=== PATIENT | female | born 1970 | race Caucasian/White ===

== ENCOUNTER → 2016-06-25 | Outpatient (CLI) | payer MEDICARE, MEDICAID ==
[2016-06-25 09:07] LABS: HEMOGLOBIN 11.4 g/dL (12.0-15.5); HGB HCT DIFFERENCE 0.2; MEAN CORPUSCULAR HEMOGLOBIN 28.3 pg (27.0-33.4); MEAN CORPUSCULAR HGB CONC 33.5 g/dL (32.0-36.0); MEAN CORPUSCULAR VOLUME 85 fl (80-97); RED BLOOD COUNT 4.02 10^6/uL (3.72-5.28); RED CELL DISTRIBUTION WIDTH 13.5 % (11.5-14.0); WHITE BLOOD COUNT 6.7 10^3/uL (4.0-10.5)
[2016-06-25 09:40] LABS: ANION GAP 11 (5-19); BLOOD UREA NITROGEN 11 mg/dL (7-20); CALCIUM 9.4 mg/dL (8.4-10.2); CARBON DIOXIDE 24 mmol/L (22-30); CHLORIDE 109 mmol/L (98-107); CREATININE RESULT 1.55 mg/dL (0.52-1.25); GLUCOSE 128 mg/dL (75-110); POTASSIUM 3.9 mmol/L (3.6-5.0); SODIUM 143.6 mmol/L (137-145)
== END ==
LOC: OD 08:34
PROVIDERS: ATTEND Internal Medicine Nephrology
DX: I12.9 Hypertensive chronic kidney disease with stage 1 through stage 4 chronic kidney disease, or unspecified chronic kidney disease (principal); N18.3 Chronic kidney disease, stage 3 (moderate); E11.9 Type 2 diabetes mellitus without complications
CPT/HCPCS: 36415; 80048; 85027

== ENCOUNTER → 2016-12-18 | Outpatient (CLI) | payer MEDICARE, MEDICAID ==
[2016-12-18 10:26] LABS: HEMATOCRIT 32.4 % (36.0-47.0); HGB HCT DIFFERENCE 0.6; MEAN CORPUSCULAR HEMOGLOBIN 29.2 pg (27.0-33.4); MEAN CORPUSCULAR HGB CONC 33.9 g/dL (32.0-36.0); MEAN CORPUSCULAR VOLUME 86 fl (80-97); RED BLOOD COUNT 3.77 10^6/uL (3.72-5.28); RED CELL DISTRIBUTION WIDTH 13.6 % (11.5-14.0); WHITE BLOOD COUNT 4.9 10^3/uL (4.0-10.5)
[2016-12-18 10:35] LABS: APPEARANCE,URINE CLEAR; BILIRUBIN,URINE NEGATIVE (NEGATIVE); GLUCOSE, URINE NEGATIVE (NEGATIVE); KETONES,URINE NEGATIVE (NEGATIVE); LEUKOCYTE ESTERASE,URINE NEGATIVE (NEGATIVE); NITRITE,URINE NEGATIVE (NEGATIVE); PROTEIN,URINE NEGATIVE (NEGATIVE); URINE SPECIFIC GRAVITY 1.004; UROBILINOGEN,URINE NEGATIVE mg/dL (<2.0)
[2016-12-18 10:51] LABS: ANION GAP 11 (5-19); BLOOD UREA NITROGEN 16 mg/dL (7-20); CALCIUM 9.6 mg/dL (8.4-10.2); CARBON DIOXIDE 24 mmol/L (22-30); CHLORIDE 109 mmol/L (98-107); CREATININE RESULT 1.52 mg/dL (0.52-1.25); GLUCOSE 139 mg/dL (75-110); SODIUM 144.2 mmol/L (137-145)
[2016-12-19 11:40] LABS: CREATININE URINE 48.8 mg/dL (Not Estab.); MICROALBUMIN URINE <3.0 ug/mL (Not Estab.)
== END ==
LOC: OD 08:50
PROVIDERS: ATTEND Internal Medicine Nephrology
DX: E11.22 Type 2 diabetes mellitus with diabetic chronic kidney disease (principal); I12.9 Hypertensive chronic kidney disease with stage 1 through stage 4 chronic kidney disease, or unspecified chronic kidney disease; N18.3 Chronic kidney disease, stage 3 (moderate)
CPT/HCPCS: 36415; 80048; 81001; 82043; 82570; 85027

== ENCOUNTER → 2017-01-17 | Outpatient (CLI) | payer MEDICARE, MEDICAID ==
--- NOTE | 2017-01-18 17:23 | WOMENS IMAGING REPORT ---
EXAM DESCRIPTION: 3D SCREENING MAMMO BILAT COMPLETED DATE/TIME: 01/17/2017 9:12 am REASON FOR STUDY: SCREENING MAMMO Z12.31 ENCNTR SCREEN MAMMOGRAM FOR MALIGNANT NEOPLASM OF TOBIAS COMPARISON: 2012 TECHNIQUE: Standard craniocaudal and mediolateral oblique views of each breast recorded using digita l acquisition and breast tomosynthesis. LIMITATIONS: None. FINDINGS: No masses, calcifications or architectural distortion. No areas of suspicion. Read with the assistance of CAD. .[facility] - R2 Cenova Version 1.3 .[facility] - R2 Cenova Version 1.3 .[facility] - R2 Cenova Version 2.4 .[facility] [place] - R2 Cenova Version 2.4 .[facility] - R2 [employer] Version 9.2 IMPRESSION: NORMAL MAMMOGRAM. BIRADS 1. BREAST DENSITY: a. The breasts are almost entirely fatty. BIRAD: 1 NEGATIVE RECOMMENDATION: ROUTINE SCREENING Please continue yearly bilateral screening tomosynthesis in January 2018. COMMENT: The patient has been notified of the results by letter per MQSA requirements. Additional no tification policies are in place for contacting patient with suspicious or incomplete findings. Quality ID #[id number]: The [employer] recommends an annual screening mammogram for women aged 40 years or over. This facility utilizes a reminder system to ensure that all patients receive reminder letters, and/or direct phone calls for appointments. This includes reminders for routine scr eening mammograms, diagnostic mammograms, or other Breast Imaging Interventions when appropriate. Th is patient will be placed in the appropriate reminder system. The [employer] (ACR) has developed recommendations for screening MRI of the breast s in certain patient populations, to be used in conjunction with mammography. Breast MRI surveillanc e may be appropriate for women with more than 20% lifetime risk of developing breast cancer as deter mined by genetic testing, significant family history of the disease, or history of mantle radiation f or Hodgkins Disease. ACR Practice Guidelines 2008. DBT Technology DBT is a type of tomographic mammography. With conventional mammography, overlapping breast tissue ma y make lesions difficult to detect, even with good compression. DBT uses an x-ray tube that rotates a round the breast, taking images at different angles. These images are then combined to create thin sl ices of the breast that the radiologist can view as a 3D reconstruction. The [employer] unit can perform full-field digital mammograms (2D imaging); or DBT (3D imaging); or both, in a combination mode that quickly performs both the mammogram and the tomosynthesis scan while the breast is still compressed. PQRS 6045F: Fluoroscopic imaging is not utilized for breast tomosynthesis. TECHNICAL DOCUMENTATION: FINDING NUMBER: (1) ASSESSMENT: (1) JOB ID: [id number] [employer]- All Rights Reserved
== END ==
LOC: WI 08:31
PROVIDERS: ATTEND Physician Assistant
DX: Z12.31 Encounter for screening mammogram for malignant neoplasm of breast (principal)
CPT/HCPCS: 77063; G0202; 77067

== ENCOUNTER → 2017-06-13 | Outpatient (CLI) | payer MEDICARE, MEDICAID ==
[2017-06-13 12:09] LABS: HEMATOCRIT 35.3 % (36.0-47.0); HEMOGLOBIN 11.8 g/dL (12.0-15.5); MEAN CORPUSCULAR HEMOGLOBIN 28.7 pg (27.0-33.4); MEAN CORPUSCULAR HGB CONC 33.5 g/dL (32.0-36.0); MEAN CORPUSCULAR VOLUME 86 fl (80-97); PLATELET COUNT 189 10^3/uL (150-450); RED BLOOD COUNT 4.12 10^6/uL (3.72-5.28); RED CELL DISTRIBUTION WIDTH 13.5 % (11.5-14.0)
[2017-06-13 12:42] LABS: ANION GAP 8 (5-19); BLOOD UREA NITROGEN 16 mg/dL (7-20); CALCIUM 9.3 mg/dL (8.4-10.2); CARBON DIOXIDE 24 mmol/L (22-30); CHLORIDE 111 mmol/L (98-107); GLUCOSE 132 mg/dL (75-110); POTASSIUM 4.3 mmol/L (3.6-5.0); SODIUM 142.8 mmol/L (137-145)
== END ==
LOC: OD 10:29
PROVIDERS: ATTEND Internal Medicine Nephrology
DX: I12.9 Hypertensive chronic kidney disease with stage 1 through stage 4 chronic kidney disease, or unspecified chronic kidney disease (principal); N18.3 Chronic kidney disease, stage 3 (moderate); E11.9 Type 2 diabetes mellitus without complications
CPT/HCPCS: 36415; 80048; 85027

== ENCOUNTER → 2018-02-06 | Outpatient (CLI) | payer MEDICARE, MEDICAID ==
--- NOTE | 2018-02-06 14:42 | WOMENS IMAGING REPORT ---
EXAM DESCRIPTION: 3D SCREENING MAMMO BILAT COMPLETED DATE/TIME: 02/06/2018 11:25 am REASON FOR STUDY: BILATERAL SCREENING MAMMO 3D/Z12.31 Z12.31 ENCNTR SCREEN MAMMOGRAM FOR MALIGNANT NEOPLASM OF TOBIAS COMPARISON: Multiple since 2012 TECHNIQUE: Standard craniocaudal and mediolateral oblique views of each breast recorded using digita l acquisition and breast tomosynthesis. LIMITATIONS: None. FINDINGS: No masses, calcifications or architectural distortion. No areas of suspicion. Read with the assistance of CAD. .[facility] - R2 Cenova Version 1.3 .[facility] - R2 Cenova Version 1.3 .[facility] - R2 Cenova Version 2.4 .[facility] - R2 Cenova Version 2.4 .[facility] - R2 [employer] Version 9.2 IMPRESSION: NORMAL MAMMOGRAM. BIRADS 1. BREAST DENSITY: a. The breasts are almost entirely fatty. BIRAD: 1 NEGATIVE RECOMMENDATION: ROUTINE SCREENING Please continue yearly bilateral screening mammography/tomosynthesis in January 2019 COMMENT: The patient has been notified of the results by letter per MQSA requirements. Additional no tification policies are in place for contacting patient with suspicious or incomplete findings. Quality ID #225: The [employer] recommends an annual screening mammogram for women aged 40 years or over. This facility utilizes a reminder system to ensure that all patients receive reminder letters, and/or direct phone calls for appointments. This includes reminders for routine scr eening mammograms, diagnostic mammograms, or other Breast Imaging Interventions when appropriate. Th is patient will be placed in the appropriate reminder system. The [employer] (ACR) has developed recommendations for screening MRI of the breast s in certain patient populations, to be used in conjunction with mammography. Breast MRI surveillanc e may be appropriate for women with more than 20% lifetime risk of developing breast cancer as deter mined by genetic testing, significant family history of the disease, or history of mantle radiation f or Hodgkins Disease. ACR Practice Guidelines 2008. DBT Technology DBT is a type of tomographic mammography. With conventional mammography, overlapping breast tissue ma y make lesions difficult to detect, even with good compression. DBT uses an x-ray tube that rotates a round the breast, taking images at different angles. These images are then combined to create thin sl ices of the breast that the radiologist can view as a 3D reconstruction. The [employer] unit can perform full-field digital mammograms (2D imaging); or DBT (3D imaging); or both, in a combination mode that quickly performs both the mammogram and the tomosynthesis scan while the breast is still compressed. PQRS 6045F: Fluoroscopic imaging is not utilized for breast tomosynthesis. TECHNICAL DOCUMENTATION: FINDING NUMBER: (1) ASSESSMENT: (1) JOB ID: [id number] [employer]- All Rights Reserved Reading location - IP/workstation name: [facility]
== END ==
LOC: WI 11:00
PROVIDERS: ATTEND Physician Assistant
DX: Z12.31 Encounter for screening mammogram for malignant neoplasm of breast (principal)
CPT/HCPCS: 77063; 77067

== ENCOUNTER 2018-05-21 21:07 | Emergency (ER) | payer MEDICARE, MEDICAID ==
[2018-05-21 22:18] VITALS: BP 159/96
== END 2018-05-22 02:00 | disposition left against medical advice (07) ==
LOC: ER 21:07
DX: Z53.21 Procedure and treatment not carried out due to patient leaving prior to being seen by health care provider (principal); R11.10 Vomiting, unspecified

== ENCOUNTER → 2018-05-29 | Outpatient (CLI) | payer MEDICARE, MEDICAID ==
--- NOTE | 2018-05-29 11:03 | RADIOLOGY REPORT (SQ) ---
EXAM DESCRIPTION: CT ABD/PELVIS NO ORAL OR IV COMPLETED DATE/TIME: 05/29/2018 10:50 am REASON FOR STUDY: ABN LIVER FUNCTION (K76.89), PELVIC PAIN (R10.2) R10.2 PELVIC AND PERINEAL PAIN COMPARISON: None. TECHNIQUE: CT scan of the abdomen and pelvis performed without intravenous or oral contrast. Images reviewed with lung, soft tissue, and bone windows. Reconstructed coronal and sagittal MPR images revi ewed. All images stored on PACS. All CT scanners at this facility use dose modulation, iterative reconstruction, and/or weight based d osing when appropriate to reduce radiation dose to as low as reasonably achievable (ALARA). [facility]: Dose Right [facility]: CareDose [facility]: Dose Right [facility]: Teradose 4D [facility]: Smart Hi-G-Tek RADIATION DOSE: CT Rad equipment meets quality standard of care and radiation dose reduction techniq ues were employed. CTDIvol: 9.6 mGy. DLP: 562 mGy-cm.mGy. LIMITATIONS: None. FINDINGS: LOWER CHEST: Minimal left basilar atelectasis. NON-CONTRASTED LIVER, SPLEEN, ADRENALS: Evaluation limited by lack of IV contrast. No identified sign ificant masses. PANCREAS: No masses. No peripancreatic inflammatory changes. GALLBLADDER: Surgically absent RIGHT KIDNEY AND URETER: No suspicious masses. Assessment limited by lack of IV contrast. No signif icant calcifications. No hydronephrosis or hydroureter. LEFT KIDNEY AND URETER: No suspicious masses. Assessment limited by lack of IV contrast. No signifi cant calcifications. No hydronephrosis or hydroureter. AORTA AND RETROPERITONEUM: No aneurysm. No retroperitoneal masses or adenopathy. BOWEL AND PERITONEAL CAVITY: No obvious masses or inflammatory changes. No free fluid. APPENDIX: Normal. PELVIS, BLADDER, AND ABDOMINAL WALL:No abnormal masses. No free fluid. Bladder normal. Normal size u terus and ovaries. BONES: No significant findings. OTHER: No other significant finding. IMPRESSION: NO SIGNIFICANT OR ACUTE PROCESS IN THE ABDOMEN OR PELVIS. COMMENT: Quality ID # [id number]: Final reports with documentation of one or more dose reduction techniques (e.g., Automated exposure control, adjustment of the mA and/or kV according to patient size, use of iterative reconstruction technique) TECHNICAL DOCUMENTATION: JOB ID: [id number]- All Rights Reserved Reading location - IP/workstation name: [email or web address]
[2018-05-29 12:55] LABS: ALANINE AMINOTRANSFERASE 88 U/L (9-52); ALBUMIN 4.3 g/dL (3.5-5.0); ALKALINE PHOSPHATASE 147 U/L (38-126); ANION GAP 19 (5-19); ASPARTATE AMINO TRANSFERASE 85 U/L (14-36); BILIRUBIN,DIRECT 0.5 mg/dL (0.0-0.4); BILIRUBIN,TOTAL 0.5 mg/dL (0.2-1.3); BLOOD UREA NITROGEN 43 mg/dL (7-20); CARBON DIOXIDE 14 mmol/L (22-30); CHLORIDE 106 mmol/L (98-107); GLUCOSE 344 mg/dL (75-110); LIPASE 123.4 U/L (23-300); POTASSIUM 3.5 mmol/L (3.6-5.0); TOTAL PROTEIN 7.4 g/dL (6.3-8.2)
== END ==
LOC: RAD 10:18
PROVIDERS: ATTEND Physician Assistant
DX: R10.2 Pelvic and perineal pain (principal); K76.89 Other specified diseases of liver
CPT/HCPCS: 36415; 74176; 80053; 83690

== ENCOUNTER 2018-06-02 15:11 | Inpatient (IN) | payer MEDICARE, MEDICAID ==
[2018-06-02] MEDS ORDERED: NORMAL SALINE 1000 ML 1,000 ML IV ONE ×2 (19:40→22:14)
[2018-06-02] MEDS ORDERED: ONDANSETRON HCL INJ/PF 4 MG/2 ML SDV IV ONE (19:41)
[2018-06-02] MEDS ORDERED: MORPHINE SULFATE 10 MG/ML INJ IV ONE (19:41)
--- NOTE | 2018-06-02 19:59 | ER Document Report ---
ED Medical Screen (RME) - General Chief Complaint: Nausea/Vomiting Stated Complaint: SOB AND NAUSEA Time Seen by Provider: 06/02/18 19:34 Primary Care Provider: PRATEEK REEVES PA [Primary Care Provider] - Follow up as needed Notes: Patient is a 47-year-old female with schizophrenia that presents to the emergency department for chief complaint of nausea, vomiting, abdominal pain and shortness of breath. Patient states she has not been feeling well for last several days, has had multiple issues including pain in most of her body, she did go see her primary care, and stated that her blood work was off recently, she is on Clozaril, and lithium she is not aware of her recent lithium levels. ROS: Other than noted above, the 12 point review of systems was reviewed with the patient and were negative, all pertinent findings are included in the HPI. PHYSICAL EXAMINATION: Vital signs reviewed. GENERAL: Disheveled appearing, and appears uncomfortable HEAD: Atraumatic, normocephalic. EYES: Pupils equal round extraocular movements intact, conjunctiva are normal. ENT: Nares patent NECK: Normal range of motion CV: Heart regular rate and rhythm LUNGS: No respiratory distress Musculoskeletal: Normal range of motion NEUROLOGICAL: Normal speech PSYCH: Bizarre affect MDM: Patient seen and examined for rapid initial assessment. Vital signs reviewed. A comprehensive ED assessment and evaluation of the patient, analysis of test results and completion of the medical decision making process will be conducted by additional ED providers. *Note is created using voice recognition software and may contain spelling, syntax or grammatical errors. TRAVEL OUTSIDE OF THE [place] IN LAST 30 DAYS: No - Related Data Allergies/Adverse Reactions: No Known Allergies Allergy (Unverified 05/21/18 21:08) Past Medical History - Social History Chew tobacco use (# tins/day): No Frequency of alcohol use: None Drug Abuse: None Renal/ Medical History: Denies: Hx Peritoneal Dialysis Doctor's Discharge - Discharge Referrals: PRATEEK REEVES PA [Primary Care Provider] - Follow up as needed
[2018-06-02 20:39] LABS: ABSOLUTE LYMPHOCYTES (AUTO) 1.6 10^3/uL (0.5-4.7); ABSOLUTE MONOCYTES (AUTO) 1.7 10^3/uL (0.1-1.4); ABSOLUTE NEUT (AUTO) 9.3 10^3/uL (1.7-8.2); BASOPHILS % (AUTO) 0.1 % (0-2); HEMATOCRIT 37.7 % (36.0-47.0); HEMOGLOBIN 13.2 g/dL (12.0-15.5); LYMPHOCYTES % (AUTO) 12.4 % (13-45); MEAN CORPUSCULAR HEMOGLOBIN 28.5 pg (27.0-33.4); MEAN CORPUSCULAR HGB CONC 35.1 g/dL (32.0-36.0); MEAN CORPUSCULAR VOLUME 81 fl (80-97); MONOCYTES % (AUTO) 13.5 % (3-13); PLATELET COUNT 387 10^3/uL (150-450); RED BLOOD COUNT 4.65 10^6/uL (3.72-5.28); RED CELL DISTRIBUTION WIDTH 13.4 % (11.5-14.0); TOTAL CELLS COUNTED % (AUTO) 100 %; WHITE BLOOD COUNT 12.6 10^3/uL (4.0-10.5)
[2018-06-02 20:47] LABS: INTERNATIONAL RATION (INR) 0.99; PROTHROMBIN TIME 13.6 SEC (11.4-15.4)
[2018-06-02 20:55] LABS: ALANINE AMINOTRANSFERASE 75 U/L (9-52); ALBUMIN 4.8 g/dL (3.5-5.0); ALKALINE PHOSPHATASE 163 U/L (38-126); ANION GAP 19 (5-19); ASPARTATE AMINO TRANSFERASE 41 U/L (14-36); BILIRUBIN,DIRECT 0.4 mg/dL (0.0-0.4); BILIRUBIN,TOTAL 0.9 mg/dL (0.2-1.3); BLOOD UREA NITROGEN 30 mg/dL (7-20); CALCIUM 10.3 mg/dL (8.4-10.2); CARBON DIOXIDE 17 mmol/L (22-30); CHLORIDE 107 mmol/L (98-107); GLUCOSE 194 mg/dL (75-110); LITHIUM 0.3 mEq/L (0.6-1.2); POTASSIUM 3.6 mmol/L (3.6-5.0); SODIUM 142.5 mmol/L (137-145); TOTAL PROTEIN 8.1 g/dL (6.3-8.2)
--- NOTE | 2018-06-02 21:09 | RADIOLOGY REPORT (SQ) ---
EXAM DESCRIPTION: XR CHEST 2 VIEWS COMPLETED DATE/TME: 06/02/2018 19:40 CLINICAL HISTORY: 47 years, Female, short of breath COMPARISON: None. NUMBER OF VIEWS: 2 TECHNIQUE: Frontal and lateral views of the chest LIMITATIONS: None. FINDINGS: Heart size is normal. Osteopenia. Lungs are clear. No pneumothorax IMPRESSION: No acute cardiopulmonary process copyright 2010 [employer]- All Rights Reserved
[2018-06-02 23:10] LABS: AMORPHOUS SEDIMENT,URINE TRACE /HPF; APPEARANCE,URINE CLOUDY; BILIRUBIN,URINE NEGATIVE (NEGATIVE); COLOR,URINE AMBER; GLUCOSE, URINE NEGATIVE (NEGATIVE); KETONES,URINE TRACE mg/dL (NEGATIVE); LEUKOCYTE ESTERASE,URINE LARGE (NEGATIVE); NITRITE,URINE NEGATIVE (NEGATIVE); PROTEIN,URINE 30 mg/dL (NEGATIVE); URINE SPECIFIC GRAVITY 1.015
[2018-06-02 23:13] LABS: ARTERIAL BLOOD BASE EXCESS -6.6 mmol/L; ARTERIAL BLOOD HCO3 13.6 mmol/L (20-24); ARTERIAL BLOOD O2 SATURATION 98.8 % (94-98); ARTERIAL BLOOD PH 7.53 (7.35-7.45); ARTERIAL BLOOD PO2 120.1 mmHg (80-100); ARTERIAL BLOOD TOTAL CO2 14.1 mmol/L (21-25)
[2018-06-02 23:15] LABS: ARTERIAL BLOOD FIO2 RA
[2018-06-02 23:17] LABS: ARTERIAL BLOOD PCO2 16.5 mmHg (35-45)
[2018-06-02] MEDS ORDERED: CEFTRIAXONE 1 GM/D5W RTU 1 GM/50 ML RTUPB IV ONE (23:23)
[2018-06-03] MEDS ORDERED: IPRATROPIUM/ALBUTEROL 0.5-2.5 MG/3 ML AMPUL NEB PRN (00:08)
[2018-06-03 00:59] LABS: URINE AMPHETAMINES SCREEN NEGATIVE; URINE BARBITURATES SCREEN NEGATIVE; URINE BENZODIAZEPINES SCREEN NEGATIVE; URINE COCAINE SCREEN NEGATIVE; URINE MARIJUANA (THC) SCREEN NEGATIVE; URINE METHADONE SCREEN NEGATIVE; URINE PHENCYCLIDINE SCREEN NEGATIVE
[2018-06-03] MEDS: NORMAL SALINE 1000 ML 1,000 ML IV PRN ×2 (02:13→14:31)
--- NOTE | 2018-06-03 02:31 | ER Document Report ---
Entered by ANKUR MEREDITH SCRIBE 06/02/18 2211 Acting as scribe for:ROME NEWELL MD ED General - General Chief Complaint: Nausea/Vomiting Stated Complaint: SOB AND NAUSEA Time Seen by Provider: 06/02/18 19:34 Mode of Arrival: Ambulatory Information source: Patient Notes: Patient is a 47 year old female with schizophrenia presents to the emergency department accompanied by sister complaining of multiple symptoms including shortness of breath, cough, vomiting, abdominal pain and decreased appetite. Sister states the patient received blood work in Dr. Reynoso's office on 05/26/2018 after complaining of abdominal pain, cough, vomiting, and decreased appetite. Sh e states she was called and told the patient's liver enzymes, sodium, and creatinine were elevated. Patient complained of pelvic pain at that time and had a CT scan and pelvic ultrasound performed which both proved to be unremarkable. Sister states the patient's symptoms still persist and she also complains of right flank pain. Patient is prescribed clozaril and lithium. TRAVEL OUTSIDE OF THE [place] IN LAST 30 DAYS: No - Related Data Allergies/Adverse Reactions: No Known Allergies Allergy (Unverified 05/21/18 21:08) Past Medical History - General Information source: Patient, Relative - Social History Smoking Status: Never Smoker Chew tobacco use (# tins/day): No Frequency of alcohol use: None Drug Abuse: None Family History: Reviewed & Not Pertinent Patient has suicidal ideation: No Patient has homicidal ideation: No Psychiatric Medical History: Reports: Hx Schizophrenia Review of Systems - Review of Systems Constitutional: No symptoms reported EENT: No symptoms reported Cardiovascular: No symptoms reported Respiratory: See HPI, Cough, Short of breath Gastrointestinal: See HPI, Nausea, Vomiting, Poor appetite Genitourinary: See HPI, Flank pain Female Genitourinary: No symptoms reported Musculoskeletal: See HPI Skin: No symptoms reported Hematologic/Lymphatic: No symptoms reported Neurological/Psychological: No symptoms reported -: Yes All other systems reviewed and negative Physical Exam - Vital signs Vitals: Temp Pulse BP Pulse Ox 98.4 F 95 125/93 H 100 06/02/18 16:28 06/02/18 16:28 06/02/18 16:28 06/02/18 16:28 - Notes Notes: GENERAL: Alert, interacts well. No acute distress. HEAD: Normocephalic, atraumatic. EYES: Pupils equal, round, and reactive to light. Extraocular movements intact. ENT: Oral mucosa dry, tongue midline. NECK: Full range of motion. Supple. Trachea midline. LUNGS: Hyperventilating. No wheezes, rales or rhonchi. HEART: Regular rate and rhythm. No murmurs, gallops, or rubs. ABDOMEN: Soft, diffuse abdominal tenderness, worse in the mid to lower abdomen. Non-distended. Bowel sounds present in all 4 quadrants. EXTREMITIES: Moves all 4 extremities spontaneously. NEUROLOGICAL: Alert and oriented x3. Normal speech. PSYCH: Normal affect, normal mood. SKIN: Warm, dry, normal turgor. No rashes or lesions noted. Course - Vital Signs Vital signs: Temp Pulse Resp BP Pulse Ox 98.4 F 95 12 120/72 99 06/02/18 16:28 06/02/18 16:28 06/03/18 06:01 06/03/18 06:01 06/03/18 06:01 - Laboratory Result Diagrams: 06/02/18 20:23 06/02/18 20:23 Laboratory results interpreted by me: 06/02/18 06/02/18 06/02/18 20:21 20:23 20:23 WBC 12.6 H Lymphocytes % 12.4 L Monocytes % 13.5 H Absolute Neutrophils 9.3 H Absolute Monocytes 1.7 H Carbonic Acid ABG pH ABG pCO2 ABG pO2 ABG HCO3 ABG Total CO2 ABG O2 Saturation Carbon Dioxide 17 L BUN 30 H Creatinine 3.08 H Est GFR ( Amer) 20 L Est GFR (Non-Af Amer) 16 L Glucose 194 H POC Glucose 191 H Lactic Acid Calcium 10.3 H AST 41 H ALT 75 H Alkaline Phosphatase 163 H Urine Protein Urine Ketones Urine Blood Urine Urobilinogen Ur Leukocyte Esterase [place] 0.3 L 06/02/18 06/02/18 06/02/18 20:23 22:47 23:03 WBC Lymphocytes % Monocytes % Absolute Neutrophils Absolute Monocytes Carbonic Acid 0.50 L ABG pH 7.53 H ABG pCO2 16.5 L* ABG pO2 120.1 H ABG HCO3 13.6 L ABG Total CO2 14.1 L ABG O2 Saturation 98.8 H Carbon Dioxide BUN Creatinine Est GFR ( Amer) Est GFR (Non-Af Amer) Glucose POC Glucose Lactic Acid 2.6 H Calcium AST ALT Alkaline Phosphatase Urine Protein 30 H Urine Ketones TRACE H Urine Blood SMALL H Urine Urobilinogen 2.0 H Ur Leukocyte Esterase LARGE H [place] - Diagnostic Test Radiology reviewed: Image reviewed, Reports reviewed - Chest x-ray shows osteopenia without any other abnormalities. - EKG Interpretation by Me EKG shows normal: Sinus rhythm, Odem, Intervals, QRS Complexes, ST-T Waves Rate: Normal - 89 Odem/QRS: IVCD Voltage: Consistant with LVH Heart block present: 1st Degree - Consults Dr. Reynoso Time consulted: 23:55 Consulted provider: will see as inpatient Critical Care Note - Critical Care Note Total time excluding time spent on procedures (mins): 35 Discharge - Discharge Clinical Impression: Dehydration, Metabolic acidosis, Hyperventilation, Respiratory alkalosis Acute renal failure Qualifiers: Acute renal failure type: unspecified Qualified Code(s): N17.9 - Acute kidney failure, unspecified Abdominal pain Qualifiers: Abdominal location: lower abdomen, unspecified Qualified Code(s): R10.30 - Lower abdominal pain, unspecified Condition: Stable Disposition: ADMITTED INPATIENT Admitting Provider: Edgardo Unit Admitted: Telemetry Scribe Attestation: 06/03/18 00:05 I personally performed the services described in the documentation, reviewed and edited the documentation which was dictated to the scribe in my presence, and it accurately records my words and actions. I personally performed the services described in the documentation, reviewed and edited the documentation which was dictated to the scribe in my presence, and it accurately records my words and actions.
[2018-06-03] MEDS: ONDANSETRON HCL INJ/PF 4 MG/2 ML SDV IV PRN (03:19)
[2018-06-03] MEDS: ACETAMINOPHEN 325 MG TABLET PO PRN (03:19)
[2018-06-03] MEDS ORDERED: GLUCAGON,HUMAN RECOMB 1 MG INJ IM PRN (06:53)
[2018-06-03] MEDS ORDERED: DEXTROSE 50%-WATER 25 GM/50 ML DISP.SYRIN IV PRN ×4 (06:53→17:50)
[2018-06-03] MEDS ORDERED: DEXTROSE 40% GEL 15 GM TUBE PO PRN ×4 (06:53→17:50)
--- NOTE | 2018-06-03 07:49 | EKG REPORT ---
SEVERITY:- ABNORMAL ECG - SINUS RHYTHM FIRST DEGREE AV BLOCK NONSPECIFIC INTRAVENTRICULAR CONDUCTION DELAY : Confirmed by: Tavares Bocanegra MD 03-Jun-2018 07:49:09
[2018-06-03] MEDS: INSULIN LISPRO 100 UNIT/ML 3 ML VIAL SUBCUT SCH ×4 (07:57→22:19)
[2018-06-03] MEDS ORDERED: LEVOTHYROXINE SODIUM 75 MCG PO SCH (10:00)
[2018-06-03] MEDS ORDERED: CLOZAPINE 100 MG TABLET PO SCH (10:00)
[2018-06-03] MEDS ORDERED: (PENDING PHARMACY ID) (Bupropion Hcl [Wellbutrin Sr 150 Mg Tablet] 1 TAB) PO SCH (10:00)
[2018-06-03] MEDS ORDERED: (PENDING PHARMACY ID) (Linagliptin [Tradjenta] 5 MG) PO SCH (10:00)
[2018-06-03] MEDS: FAMOTIDINE INJ/PF 20 MG/2 ML SDV IV SCH ×2 (10:36→21:10)
[2018-06-03] MEDS: LITHIUM CARBONATE 450 MG TABLET.ER PO SCH (10:37)
[2018-06-03] MEDS: TRIHEXYPHENIDYL HCL 2 MG TABLET PO SCH (10:37)
[2018-06-03] MEDS: DOCUSATE SODIUM 100 MG CAPSULE PO SCH ×2 (10:37→17:41)
[2018-06-03] MEDS: LORAZEPAM 1 MG TABLET PO SCH ×3 (10:37→17:41)
[2018-06-03] MEDS: CLOZAPINE 100 MG TABLET PO SCH ×2 (10:37→22:19)
[2018-06-03] MEDS: ENOXAPARIN SODIUM INJ 40 MG/0.4 ML DISP.SYRIN SUBCUT SCH (10:37)
--- NOTE | 2018-06-03 11:19 | PDOC H&P ---
History of Present Illness Admission Date/PCP: 06/03/18 00:14 JUAN CARLOS MALAVE MD Patient complains of: Abdominal pain nausea History of Present Illness: NOEMI HIGGINS is a 47 year old female This is a 47-year-old female is with a significant history of the schizophrenia depression and anxiety multiple psych medications history of the chronic kidney disease with baseline creatinine is 1.[address] Miller came to the office last week with a complaining some pelvic pain and abdominal issues had a blood work done with suggest the patient LFT was elevated and patient's creatinine is elevated to 2.[address] abdomen and pelvis without contrast which did not show any abnormal finding Patient all gallbladder is already removed Patient's bilirubin is all stable Patient not feeling better came to the emergency department yesterday with a creatinine is 3.0 When I saw the patient in the ER patient sleeping but without any distressed denied any chest pain to than any shortness of the breath Patient still complains of pelvic pain Patient have a menstrual. Last week with some cramping in the abdominal area Patient other than that at this point decided to admit for possible UTI renal failure and further evaluation about this abdominal flank pain which he describes the right side more [place] level is all stable will consult the psychiatrist for further adjustment of the medications According to the ER physician patient was hyperventilated when she came patient's pH was 7.5 Past Medical History Cardiac Medical History: Reports: Hyperlipidema, Hypertension Renal/ Medical History: Reports: Chronic Kidney Disease GI Medical History: Reports: Gastroesophageal Reflux Disease Psychiatric Medical History: Reports: Depression, General Anxiety Disorder, Schizoaffective Disorder Past Surgical History Past Surgical History: Reports: Cholecystectomy Social History Smoking Status: Never Smoker Family History Family History: Reviewed & Not Pertinent Parental Family History Reviewed: Yes Children Family History Reviewed: Yes Sibling(s) Family History Reviewed.: Yes Medication/Allergy Home Medications: Bupropion HCl [Wellbutrin Sr 150 mg Tablet] 1 tab PO Q12 06/03/18 Clozapine [Clozaril 100 Mg Tablet] 100 mg PO BID 06/03/18 Docusate Sodium [Colace 100 mg Capsule] 100 mg PO DAILYP PRN 06/03/18 Levothyroxine Sodium [Synthroid 0.075 mg Tablet] 0.075 mg PO DAILY 06/03/18 Linagliptin [Tradjenta] 5 mg PO DAILY 06/03/18 [place] Carbonate [[place] Carbonate ER 450 mg Tablet] 450 mg PO QHS 06/03/18 Lorazepam [Ativan 1 mg Tablet] 1 mg PO TID 06/03/18 Oxybutynin Chloride [Oxybutynin Chloride ER] 10 mg PO DAILY 06/03/18 Paroxetine HCl [Paxil] 40 mg PO DAILY 06/03/18 Trihexyphenidyl HCl [Artane 2 mg Tablet] 1 mg PO BID 06/03/18 Allergies/Adverse Reactions: No Known Allergies Allergy (Unverified 06/03/18 09:44) Review of Systems Constitutional: PRESENT: weakness. ABSENT: chills, fever(s), headache(s), weight gain, weight loss Eyes: ABSENT: visual disturbances Ears: ABSENT: hearing changes Cardiovascular: ABSENT: chest pain, dyspnea on exertion, edema, orthropnea, palpitations Respiratory: ABSENT: cough, hemoptysis Gastrointestinal: PRESENT: abdominal pain, nausea, vomiting. ABSENT: constipation, diarrhea, hematemesis, hematochezia Genitourinary: ABSENT: dysuria, hematuria Musculoskeletal: ABSENT: joint swelling Integumentary: ABSENT: rash, wounds Neurological: ABSENT: abnormal gait, abnormal speech, confusion, dizziness, focal weakness, syncope Psychiatric: ABSENT: anxiety, depression, homidical ideation, suicidal ideation Endocrine: ABSENT: cold intolerance, heat intolerance, menstrual abnormalities, polydipsia, polyuria Hematologic/Lymphatic: ABSENT: easy bleeding, easy bruising, lymphadenopathy Physical Exam Vital Signs: Temp Pulse Resp BP Pulse Ox 98.4 F 95 12 120/72 99 06/02/18 16:28 06/02/18 16:28 06/03/18 06:01 06/03/18 06:01 06/03/18 06:01 Intake & Output 06/02/18 06/03/18 06/04/18 06:59 06:59 06:59 Intake Total 0 Output Total 200 Balance 1850 Weight 113.3 kg General appearance: PRESENT: no acute distress, well-developed, well-nourished Head exam: PRESENT: atraumatic, normocephalic Eye exam: PRESENT: conjunctiva pink, EOMI, PERRLA. ABSENT: scleral icterus Ear exam: PRESENT: normal external ear exam Mouth exam: PRESENT: moist, tongue midline Neck exam: PRESENT: full ROM. ABSENT: carotid bruit, JVD, lymphadenopathy, thyromegaly Respiratory exam: PRESENT: clear to auscultation soham Cardiovascular exam: PRESENT: RRR. ABSENT: diastolic murmur, rubs, systolic murmur Vascular exam: PRESENT: normal capillary refill GI/Abdominal exam: PRESENT: normal bowel sounds, soft. ABSENT: distended, guarding, mass, organolmegaly, rebound, tenderness Rectal exam: PRESENT: deferred Neurological exam: PRESENT: alert, awake, oriented to person, oriented to place, oriented to time, oriented to situation, CN II-XII grossly intact. ABSENT: motor sensory deficit Psychiatric exam: PRESENT: appropriate affect, normal mood. ABSENT: homicidal ideation, suicidal ideation Skin exam: PRESENT: dry, intact, warm. ABSENT: cyanosis, rash Results Laboratory Results: 06/02/18 20:23 06/02/18 20:23 06/02/18 06/02/18 06/02/18 20:23 20:23 20:23 WBC 12.6 H RBC 4.65 Hgb 13.2 Hct 37.7 MCV 81 MCH 28.5 MCHC 35.1 RDW 13.4 Plt Count 387 Seg Neutrophils % 74.0 Lymphocytes % 12.4 L Monocytes % 13.5 H Eosinophils % 0.0 Basophils % 0.1 Absolute Neutrophils 9.3 H Absolute Lymphocytes 1.6 Absolute Monocytes 1.7 H Absolute Eosinophils 0.0 Absolute Basophils 0.0 Carbonic Acid HCO3/H2CO3 Ratio ABG pH ABG pCO2 ABG pO2 ABG HCO3 ABG O2 Saturation ABG Base Excess FiO2 Sodium 142.5 Potassium 3.6 Chloride 107 Carbon Dioxide 17 L Anion Gap 19 BUN 30 H Creatinine 3.08 H Est GFR ( Amer) 20 L Est GFR (Non-Af Amer) 16 L Glucose 194 H Lactic Acid 2.6 H Calcium 10.3 H Total Bilirubin 0.9 AST 41 H ALT 75 H Alkaline Phosphatase 163 H Total Protein 8.1 Albumin 4.8 Serum HCG, Qual Urine Color Urine Appearance Urine pH Ur Specific [place] Urine Protein Urine Glucose (UA) Urine Ketones Urine Blood Urine Nitrite Ur Leukocyte Esterase Urine WBC (Auto) Urine RBC (Auto) 06/02/18 06/02/18 06/02/18 20:23 22:47 23:03 WBC RBC Hgb Hct MCV MCH MCHC RDW Plt Count Seg Neutrophils % Lymphocytes % Monocytes % Eosinophils % Basophils % Absolute Neutrophils Absolute Lymphocytes Absolute Monocytes Absolute Eosinophils Absolute Basophils Carbonic Acid 0.50 L HCO3/H2CO3 Ratio 27:1 ABG pH 7.53 H ABG pCO2 16.5 L* ABG pO2 120.1 H ABG HCO3 13.6 L ABG O2 Saturation 98.8 H ABG Base Excess -6.6 FiO2 RA Sodium Potassium Chloride Carbon Dioxide Anion Gap BUN Creatinine Est GFR ( Amer) Est GFR (Non-Af Amer) Glucose Lactic Acid Calcium Total Bilirubin AST ALT Alkaline Phosphatase Total Protein Albumin Serum HCG, Qual NEGATIVE Urine Color FATIMAH Urine Appearance CLOUDY Urine pH 5.0 Ur Specific [place] 1.015 Urine Protein 30 H Urine Glucose (UA) NEGATIVE Urine Ketones TRACE H Urine Blood SMALL H Urine Nitrite NEGATIVE Ur Leukocyte Esterase LARGE H Urine WBC (Auto) 57 Urine RBC (Auto) 3 06/03/18 00:33 WBC RBC Hgb Hct MCV MCH MCHC RDW Plt Count Seg Neutrophils % Lymphocytes % Monocytes % Eosinophils % Basophils % Absolute Neutrophils Absolute Lymphocytes Absolute Monocytes Absolute Eosinophils Absolute Basophils Carbonic Acid HCO3/H2CO3 Ratio ABG pH ABG pCO2 ABG pO2 ABG HCO3 ABG O2 Saturation ABG Base Excess FiO2 Sodium Potassium Chloride Carbon Dioxide Anion Gap BUN Creatinine Est GFR ( Amer) Est GFR (Non-Af Amer) Glucose Lactic Acid 0.8 Calcium Total Bilirubin AST ALT Alkaline Phosphatase Total Protein Albumin Serum HCG, Qual Urine Color Urine Appearance Urine pH Ur Specific [place] Urine Protein Urine Glucose (UA) Urine Ketones Urine Blood Urine Nitrite Ur Leukocyte Esterase Urine WBC (Auto) Urine RBC (Auto) 06/02/18 20:23 Troponin I < 0.012 Impressions: Chest X-Ray 06/02/18 19:40 IMPRESSION: No acute cardiopulmonary process copyright 2011 [employer]- All Rights Reserved Assessment & Plan - Diagnosis (1) Acute renal failure Qualifiers: Acute renal failure type: unspecified Qualified Code(s): N17.9 - Acute kidney failure, unspecified Is this a current diagnosis for this admission?: Yes Plan: Due to possible underlying urinary tract infections in the dehydration's We will get the ultrasound of the abdomen Patient's recent CT abdomen and pelvis was all stable without contrast Will get the consult Dr. Miller (2) Abdominal pain Qualifiers: Abdominal location: lower abdomen, unspecified Qualified Code(s): R10.30 - Lower abdominal pain, unspecified Is this a current diagnosis for this admission?: Yes Plan: Will get the ultrasound of the abdomen and pelvic ultrasound to rule out other [employer] etiology Possible urinary tract infections We will start the patient on IV Rocephin get the urine culture (3) Schizophrenia Qualifiers: Schizophrenia type: unspecified Qualified Code(s): F20.9 - Schizophrenia, unspecified Is this a current diagnosis for this admission?: Yes Plan: Is taking the several medications consult the psych for further evaluations (4) Anxiety disorder Qualifiers: Anxiety disorder type: generalized anxiety disorder Qualified Code(s): F41.1 - Generalized anxiety disorder Is this a current diagnosis for this admission?: Yes (5) Hypertension Qualifiers: Hypertension type: essential hypertension Qualified Code(s): I10 - Essential (primary) hypertension Is this a current diagnosis for this admission?: Yes (6) Dehydration Is this a current diagnosis for this admission?: Yes Plan: Start the patient on IV fluid (7) Hyperventilation Is this a current diagnosis for this admission?: Yes Plan: Most likely due to the underlying psych disorder currently all stable (8) Metabolic acidosis Is this a current diagnosis for this admission?: Yes Plan: Due to the hyperventilation's with the respiratory alkalosis and metabolic acidosis due to the renal failure We will continues IV fluids sodium bicarb consult nephrology - Time Time Spent: 50 to 70 Minutes Medications reviewed and adjusted accordingly: Yes Anticipated discharge: Home Within: Other - Inpatient Certification Based on my medical assessment, after consideration of the patient's comorbidities, presenting symptoms, or acuity I expect that the services needed warrant INPATIENT care.: Yes I certify that my determination is in accordance with my understanding of Medicare's requirements for reasonable and necessary INPATIENT services [42 CFR 412.3e].: Yes Medical Necessity: Failure to Improve With Outpatient Therapy, Need Close Monitoring Due to Risk of Patient Decompensation, Need For IV Fluids, Need for IV Antibiotics 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
[2018-06-03] MEDS ORDERED: GUAIFENESIN SYRP 200 MG/10 ML UDC PO PRN (11:49)
--- NOTE | 2018-06-03 12:07 | PDOC CONSULTATION ---
Consultation Consult Date: 06/03/18 Consult reason:: Acute on chronic kidney disease. History of Present Illness Admission Date/PCP: 06/03/18 00:14 JUAN CARLOS MALAVE MD History of Present Illness: NOEMI HIGGINS is a 47 year old female with a history of diabetes mellitus, hypertension, CKD stage III with a base creatinine 1.5, paranoid schizophrenia was admitted with history of progressive abdominal pains of 1-2 weeks duration. She was seen earlier with Dr. Malave's office and which was showing that her creatinine was rising up to 2.7. They did a CT scan without contrast which was unremarkable. Evaluation of the ER reveals now that she has a UTI. She has been begun on IV antibiotics and fluids and admitted for further evaluations and management.Patient is confused and disoriented at the moment. She is unaware of the place time and date. Her answers of sometimes jumbled up.Labs and medications were reviewed that shows creatinine of 3.0 and lithium levels were low at 0.3. Past Medical History Cardiac Medical History: Reports: Hyperlipidemia, Hypertension-primary Endocrine Medical History: Reports: Diabetes Mellitus Type 2, Hypothyroidism Renal/ Medical History: Reports: Chronic Kidney Disease Stage III GI Medical History: Reports: Gastroesophageal Reflux Disease Psychiatric Medical History: Reports: Depression, General Anxiety Disorder, Schizoaffective Disorder Past Surgical History Past Surgical History: Reports: Cholecystectomy Social History Smoking Status: Never Smoker Family History Parental Family History Reviewed: No Children Family History Reviewed: No Sibling(s) Family History Reviewed.: No Medication/Allergy Home Medications: Bupropion HCl [Wellbutrin Sr 150 mg Tablet] 1 tab PO Q12 06/03/18 Clozapine [Clozaril 100 Mg Tablet] 100 mg PO BID 06/03/18 Docusate Sodium [Colace 100 mg Capsule] 100 mg PO DAILYP PRN 06/03/18 Levothyroxine Sodium [Synthroid 0.075 mg Tablet] 0.075 mg PO DAILY 06/03/18 Linagliptin [Tradjenta] 5 mg PO DAILY 06/03/18 [place] Carbonate [[place] Carbonate ER 450 mg Tablet] 450 mg PO QHS 06/03/18 Lorazepam [Ativan 1 mg Tablet] 1 mg PO TID 06/03/18 Oxybutynin Chloride [Oxybutynin Chloride ER] 10 mg PO DAILY 06/03/18 Paroxetine HCl [Paxil] 40 mg PO DAILY 06/03/18 Trihexyphenidyl HCl [Artane 2 mg Tablet] 1 mg PO BID 06/03/18 Allergies/Adverse Reactions: No Known Allergies Allergy (Unverified 06/03/18 09:44) Review of Systems Constitutional: PRESENT: anorexia, fatigue, weakness. ABSENT: fever(s), headache(s), night sweats Ears: ABSENT: hearing changes Nose, Mouth, and Throat: ABSENT: mouth pain, sore throat Cardiovascular: ABSENT: chest pain, dyspnea on exertion, edema, orthropnea, palpitations Gastrointestinal: PRESENT: nausea. ABSENT: abdominal pain, coffee ground emesis, diarrhea, dysphagia, heartburn, hematemesis, hematochezia, vomiting Genitourinary: ABSENT: difficulty urinating, dysuria, hematuria Integumentary: ABSENT: erythema, lesions, pruritus, rash Neurological: PRESENT: confusion. ABSENT: abnormal movements, abnormal speech, convulsions, frequent falls Endocrine: ABSENT: flushing, polydipsia Hematologic/Lymphatic: ABSENT: easy bleeding, easy bruising, lymphadenopathy Physical Exam Vital Signs: Temp Pulse Resp BP Pulse Ox 98.4 F 95 12 120/72 99 06/02/18 16:28 06/02/18 16:28 06/03/18 06:01 06/03/18 06:01 06/03/18 06:01 Intake & Output 06/02/18 06/03/18 06/04/18 06:59 06:59 06:59 Intake Total 2050 Output Total 200 Balance 1850 Weight 113.3 kg General appearance: PRESENT: no acute distress, disheveled Exam: Patient is confused and disoriented. Eye exam: PRESENT: conjunctiva pink, EOMI, PERRLA. ABSENT: nystagmus Mouth exam: PRESENT: moist, neck supple Neck exam: ABSENT: lymphadenopathy, meningismus, tenderness, thyromegaly, tracheal deviation Respiratory exam: PRESENT: clear to auscultation [place]. ABSENT: crackles, rhonchi, stridor Cardiovascular exam: PRESENT: +S1, +S2 GI/Abdominal exam: PRESENT: normal bowel sounds, soft. ABSENT: organomegaly, tenderness Extremities exam: ABSENT: pedal edema Neurological exam: PRESENT: alert, awake. ABSENT: oriented to person, oriented to place, oriented to time Psychiatric exam: PRESENT: anxious Skin exam: ABSENT: cyanosis, erythema, rash Results Laboratory Results: 06/02/18 20:23 06/02/18 20:23 06/02/18 06/02/18 06/02/18 20:23 20:23 20:23 WBC 12.6 H RBC 4.65 Hgb 13.2 Hct 37.7 MCV 81 MCH 28.5 MCHC 35.1 RDW 13.4 Plt Count 387 Seg Neutrophils % 74.0 Lymphocytes % 12.4 L Monocytes % 13.5 H Eosinophils % 0.0 Basophils % 0.1 Absolute Neutrophils 9.3 H Absolute Lymphocytes 1.6 Absolute Monocytes 1.7 H Absolute Eosinophils 0.0 Absolute Basophils 0.0 Carbonic Acid HCO3/H2CO3 Ratio ABG pH ABG pCO2 ABG pO2 ABG HCO3 ABG O2 Saturation ABG Base Excess FiO2 Sodium 142.5 Potassium 3.6 Chloride 107 Carbon Dioxide 17 L Anion Gap 19 BUN 30 H Creatinine 3.08 H Est GFR ( Amer) 20 L Est GFR (Non-Af Amer) 16 L Glucose 194 H Lactic Acid 2.6 H Calcium 10.3 H Total Bilirubin 0.9 AST 41 H ALT 75 H Alkaline Phosphatase 163 H Total Protein 8.1 Albumin 4.8 Serum HCG, Qual Urine Color Urine Appearance Urine pH Ur Specific [place] Urine Protein Urine Glucose (UA) Urine Ketones Urine Blood Urine Nitrite Ur Leukocyte Esterase Urine WBC (Auto) Urine RBC (Auto) 06/02/18 06/02/18 06/02/18 20:23 22:47 23:03 WBC RBC Hgb Hct MCV MCH MCHC RDW Plt Count Seg Neutrophils % Lymphocytes % Monocytes % Eosinophils % Basophils % Absolute Neutrophils Absolute Lymphocytes Absolute Monocytes Absolute Eosinophils Absolute Basophils Carbonic Acid 0.50 L HCO3/H2CO3 Ratio 27:1 ABG pH 7.53 H ABG pCO2 16.5 L* ABG pO2 120.1 H ABG HCO3 13.6 L ABG O2 Saturation 98.8 H ABG Base Excess -6.6 FiO2 RA Sodium Potassium Chloride Carbon Dioxide Anion Gap BUN Creatinine Est GFR ( Amer) Est GFR (Non-Af Amer) Glucose Lactic Acid Calcium Total Bilirubin AST ALT Alkaline Phosphatase Total Protein Albumin Serum HCG, Qual NEGATIVE Urine Color FATIMAH Urine Appearance CLOUDY Urine pH 5.0 Ur Specific [place] 1.015 Urine Protein 30 H Urine Glucose (UA) NEGATIVE Urine Ketones TRACE H Urine Blood SMALL H Urine Nitrite NEGATIVE Ur Leukocyte Esterase LARGE H Urine WBC (Auto) 57 Urine RBC (Auto) 3 06/03/18 00:33 WBC RBC Hgb Hct MCV MCH MCHC RDW Plt Count Seg Neutrophils % Lymphocytes % Monocytes % Eosinophils % Basophils % Absolute Neutrophils Absolute Lymphocytes Absolute Monocytes Absolute Eosinophils Absolute Basophils Carbonic Acid HCO3/H2CO3 Ratio ABG pH ABG pCO2 ABG pO2 ABG HCO3 ABG O2 Saturation ABG Base Excess FiO2 Sodium Potassium Chloride Carbon Dioxide Anion Gap BUN Creatinine Est GFR ( Amer) Est GFR (Non-Af Amer) Glucose Lactic Acid 0.8 Calcium Total Bilirubin AST ALT Alkaline Phosphatase Total Protein Albumin Serum HCG, Qual Urine Color Urine Appearance Urine pH Ur Specific [place] Urine Protein Urine Glucose (UA) Urine Ketones Urine Blood Urine Nitrite Ur Leukocyte Esterase Urine WBC (Auto) Urine RBC (Auto) 06/02/18 20:23 Troponin I < 0.012 Impressions: Chest X-Ray 06/02/18 19:40 IMPRESSION: No acute cardiopulmonary process copyright 2011 [employer]- All Rights Reserved Assessment & Plan - Diagnosis (1) Acute renal failure Qualifiers: Acute renal failure type: unspecified Qualified Code(s): N17.9 - Acute kidney failure, unspecified Is this a current diagnosis for this admission?: Yes Plan: I believe she has got acute kidney worsening from dehydration and possible UTI/ATN. I would continue on fluids and antibiotics and monitor. Recent imaging studies did not show any obstructive features.She is on lithium but her levels are rather on the low side I do not see any obvious features of lithium toxicity.We will also get a renal ultrasound to make sure we are not dealing with any obstructive features. (2) Anxiety disorder Qualifiers: Anxiety disorder type: generalized anxiety disorder Qualified Code(s): F4 1.1 - Generalized anxiety disorder Is this a current diagnosis for this admission?: Yes Plan: As per Dr. Malave. (3) Dehydration Is this a current diagnosis for this admission?: Yes Plan: IV fluid resuscitation and monitor. (4) Schizophrenia Qualifiers: Schizophrenia type: unspecified Qualified Code(s): F20.9 - Schizophrenia, unspecified Is this a current diagnosis for this admission?: Yes Plan: Patient seems like she might be decompensated from schizophrenic features. This could also have been precipitated by her UTI and possible delirium. (5) UTI (urinary tract infection) Plan: Initial cultures are growing gram-negative rods. Continue on Rocephin for now.
--- NOTE | 2018-06-03 12:54 | PSYCHOLOGICAL NOTE ---
Psych Note - Psych Note Date seen by psych provider: 06/03/18 Time seen by psych provider: 11:00 Psych Note: Reason for consult: Contact Permissions: Patient is asleep and will be admitted due to medical concerns so MSE was not conducted. Chart review shows patient has a hx of Schizophrenia dx and is here for concerns of body aches and vomiting. Her labs are abnormal, she appears to have a UTI, and her lithium level is low. Patient's sister, Tamica Mcarthur reports that her sister is sick and so sleeping a lot. She denies any psychiatric concerns at this time, denies drug use, denies medication adjustment needs. Patient is stable on Clozaril 100mg Q12 for the last 20 years Wellbutrin 150mg Q12, and Palatine 450mg daily. She reports that her sister is living independently in her own apartment, using the medicaid van for transportation to appointment and walks to the [email or web address] for groceries. She occasionally needs assistance with her finances. Diagnosis: Schizophrenia, per hx Medication recommendations as per psychiatric provider, Dr. Malave are as follows: No medication recommendations at this time. Impression/Plan: Patient is psychiatrically clear from acute psychiatric services as there is not risk of harm to self or others aeb patient was brought into the ED for medical concerns only and per collateral report is stable on her medication i.e not experiencing psychosis, not suicidal, not homicidal, is functioning well e.g. taking herself to appointments, is compliant on medications, and lives alone without assistance. Per patient sister, her medication regimen "has been a God send". Patient is a 47 yo female diagnosed with Schizophrenia who will be admitted today for medical concerns. Patient is recommended to follow up with her mental health provider upon discharge. Consulted Dr. Motley in the care and treatment of this patient and ED physician who is in agreement with disposition and recommendation.
[2018-06-03] MEDS: SITAGLIPTIN PHOSPHATE 50 MG TABLET PO SCH (14:27)
[2018-06-03] MEDS: BUPROPION HCL 100 MG TABLET PO SCH ×2 (14:27→21:10)
[2018-06-03] MEDS: CEFTRIAXONE 1 GM/D5W RTU 1 GM/50 ML RTUPB IV SCH (14:27)
[2018-06-03] MEDS: LEVOTHYROXINE SODIUM 0.075 MG TABLET PO SCH (14:35)
[2018-06-03] MEDS: PAROXETINE HCL 20 MG TABLET PO SCH (14:51)
--- NOTE | 2018-06-03 16:46 | PDOC CONSULTATION ---
Consultation Consult Date: 06/03/18 Attending physician:: JOSE DAVID KELLY Consult reason:: abdominal pain associated with nausea History of Present Illness Admission Date/PCP: 06/03/18 00:14 JUAN CARLOS MALAVE MD History of Present Illness: NOEMI HIGGINS is a 47 year old female I am asked to see this patient by Dr Malave patient had been admitted for possible UTI and also requires a psych consult so far no etiology of her pain has been found patient does admit that there is no specific location but that is associated with nausea she has had a cholecystectomy in the past she would likely need an EGD to prove that there is no PUD Past Medical History Cardiac Medical History: Reports: Hyperlipidema, Hypertension Endocrine Medical History: Reports: Diabetes Mellitus Type 2, Hypothyroidism Renal/ Medical History: Reports: Chronic Kidney Disease GI Medical History: Reports: Gastroesophageal Reflux Disease Psychiatric Medical History: Reports: Depression, General Anxiety Disorder, Schizoaffective Disorder Past Surgical History Past Surgical History: Reports: Cholecystectomy Social History Smoking Status: Never Smoker Frequency of Alcohol Use: None Hx Recreational Drug Use: No Drugs: None Hx Prescription Drug Abuse: No Family History Family History: Reviewed & Not Pertinent Parental Family History Reviewed: Yes Children Family History Reviewed: Unknown Sibling(s) Family History Reviewed.: Unknown Medication/Allergy Home Medications: Bupropion HCl [Wellbutrin Sr 150 mg Tablet] 1 tab PO Q12 06/03/18 Clozapine [Clozaril 100 Mg Tablet] 100 mg PO BID 06/03/18 Docusate Sodium [Colace 100 mg Capsule] 100 mg PO DAILYP PRN 06/03/18 Levothyroxine Sodium [Synthroid 0.075 mg Tablet] 0.075 mg PO DAILY 06/03/18 Linagliptin [Tradjenta] 5 mg PO DAILY 06/03/18 Rattan Carbonate [Rattan Carbonate ER 450 mg Tablet] 450 mg PO QHS 06/03/18 Lorazepam [Ativan 1 mg Tablet] 1 mg PO TID 06/03/18 Oxybutynin Chloride [Oxybutynin Chloride ER] 10 mg PO DAILY 06/03/18 Paroxetine HCl [Paxil] 40 mg PO DAILY 06/03/18 Trihexyphenidyl HCl [Artane 2 mg Tablet] 1 mg PO BID 06/03/18 Allergies/Adverse Reactions: No Known Allergies Allergy (Unverified 06/03/18 09:44) Review of Systems Constitutional: ABSENT: fever(s), headache(s), night sweats Eyes: ABSENT: visual disturbances Ears: ABSENT: hearing changes Nose, Mouth, and Throat: ABSENT: mouth pain, sore throat Cardiovascular: ABSENT: edema, orthropnea, palpitations Respiratory: ABSENT: dyspnea, hemoptysis Gastrointestinal: PRESENT: nausea. ABSENT: hematemesis, hematochezia, melena Genitourinary: ABSENT: dysuria, hematuria Musculoskeletal: ABSENT: deformity, joint swelling Integumentary: ABSENT: lesions, pruritus Neurological: ABSENT: syncope, tingling, tremor(s), vertigo Endocrine: ABSENT: polydipsia, polyphagia, polyuria Hematologic/Lymphatic: ABSENT: easy bruising Physical Exam Vital Signs: Temp Pulse Resp BP Pulse Ox 97.6 F 80 16 129/61 H 96 06/03/18 13:45 06/03/18 16:26 06/03/18 13:45 06/03/18 13:45 06/03/18 13:45 Intake & Output 06/02/18 06/03/18 06/04/18 06:59 06:59 06:59 Intake Total 2050 1050 Output Total 200 Balance 1850 1050 Weight 113.3 kg 113.3 kg General appearance: PRESENT: mild distress, well-developed Head exam: PRESENT: atraumatic, normocephalic Eye exam: PRESENT: EOMI, PERRLA. ABSENT: nystagmus, scleral icterus Mouth exam: PRESENT: moist, neck supple Throat exam: ABSENT: tonsillar exudate, tonsillogmegaly Respiratory exam: PRESENT: symmetrical, unlabored. ABSENT: tachypnea, wheezes Cardiovascular exam: PRESENT: RRR, +S1, +S2 GI/Abdominal exam: PRESENT: soft. ABSENT: rebound, rigid, tenderness Extremities exam: ABSENT: joint swelling Musculoskeletal exam: PRESENT: full ROM Neurological exam: PRESENT: altered, CN II-XII grossly intact Focused psych exam: ABSENT: restlessness Skin exam: PRESENT: normal color. ABSENT: mottled, pallor, urticaria, vesicles Results Laboratory Results: 06/02/18 20:23 06/02/18 20:23 06/02/18 06/02/18 06/02/18 20:23 20:23 20:23 WBC 12.6 H RBC 4.65 Hgb 13.2 Hct 37.7 MCV 81 MCH 28.5 MCHC 35.1 RDW 13.4 Plt Count 387 Seg Neutrophils % 74.0 Lymphocytes % 12.4 L Monocytes % 13.5 H Eosinophils % 0.0 Basophils % 0.1 Absolute Neutrophils 9.3 H Absolute Lymphocytes 1.6 Absolute Monocytes 1.7 H Absolute Eosinophils 0.0 Absolute Basophils 0.0 Carbonic Acid HCO3/H2CO3 Ratio ABG pH ABG pCO2 ABG pO2 ABG HCO3 ABG O2 Saturation ABG Base Excess FiO2 Sodium 142.5 Potassium 3.6 Chloride 107 Carbon Dioxide 17 L Anion Gap 19 BUN 30 H Creatinine 3.08 H Est GFR ( Amer) 20 L Est GFR (Non-Af Amer) 16 L Glucose 194 H Lactic Acid 2.6 H Calcium 10.3 H Total Bilirubin 0.9 AST 41 H ALT 75 H Alkaline Phosphatase 163 H Total Protein 8.1 Albumin 4.8 Serum HCG, Qual Urine Color Urine Appearance Urine pH Ur Specific [place] Urine Protein Urine Glucose (UA) Urine Ketones Urine Blood Urine Nitrite Ur Leukocyte Esterase Urine WBC (Auto) Urine RBC (Auto) 06/02/18 06/02/18 06/02/18 20:23 22:47 23:03 WBC RBC Hgb Hct MCV MCH MCHC RDW Plt Count Seg Neutrophils % Lymphocytes % Monocytes % Eosinophils % Basophils % Absolute Neutrophils Absolute Lymphocytes Absolute Monocytes Absolute Eosinophils Absolute Basophils Carbonic Acid 0.50 L HCO3/H2CO3 Ratio 27:1 ABG pH 7.53 H ABG pCO2 16.5 L* ABG pO2 120.1 H ABG HCO3 13.6 L ABG O2 Saturation 98.8 H ABG Base Excess -6.6 FiO2 RA Sodium Potassium Chloride Carbon Dioxide Anion Gap BUN Creatinine Est GFR ( Amer) Est GFR (Non-Af Amer) Glucose Lactic Acid Calcium Total Bilirubin AST ALT Alkaline Phosphatase Total Protein Albumin Serum HCG, Qual NEGATIVE Urine Color FATIMAH Urine Appearance CLOUDY Urine pH 5.0 Ur Specific [place] 1.015 Urine Protein 30 H Urine Glucose (UA) NEGATIVE Urine Ketones TRACE H Urine Blood SMALL H Urine Nitrite NEGATIVE Ur Leukocyte Esterase LARGE H Urine WBC (Auto) 57 Urine RBC (Auto) 3 06/03/18 00:33 WBC RBC Hgb Hct MCV MCH MCHC RDW Plt Count Seg Neutrophils % Lymphocytes % Monocytes % Eosinophils % Basophils % Absolute Neutrophils Absolute Lymphocytes Absolute Monocytes Absolute Eosinophils Absolute Basophils Carbonic Acid HCO3/H2CO3 Ratio ABG pH ABG pCO2 ABG pO2 ABG HCO3 ABG O2 Saturation ABG Base Excess FiO2 Sodium Potassium Chloride Carbon Dioxide Anion Gap BUN Creatinine Est GFR ( Amer) Est GFR (Non-Af Amer) Glucose Lactic Acid 0.8 Calcium Total Bilirubin AST ALT Alkaline Phosphatase Total Protein Albumin Serum HCG, Qual Urine Color Urine Appearance Urine pH Ur Specific [place] Urine Protein Urine Glucose (UA) Urine Ketones Urine Blood Urine Nitrite Ur Leukocyte Esterase Urine WBC (Auto) Urine RBC (Auto) 06/02/18 20:23 Troponin I < 0.012 Impressions: Chest X-Ray 06/02/18 19:40 IMPRESSION: No acute cardiopulmonary process copyright 2010 [employer]- All Rights Reserved Assessment & Plan - Diagnosis (1) Abdominal pain Qualifiers: Abdominal location: lower abdomen, unspecified Qualified Code(s): R10.30 - Lower abdominal pain, unspecified Is this a current diagnosis for this admission?: Yes Plan: etiology is unclear but there are symptoms nausea, to indicated that it could be gastric in origin I will set her up for EGD she likely will need Propofol sedation The risks, benefits and alternatives are discussed with the patient in detail further recommendations to follow - Time Time Spent: 50 to 70 Minutes
[2018-06-03] MEDS ORDERED: GLUCAGON,HUMAN RECOMB 1 MG INJ SUBCUT PRN (17:50)
[2018-06-03] MEDS: PANTOPRAZOLE SODIUM 40 MG VIAL IV SCH (21:10)
[2018-06-03] MEDS: GUAIFENESIN 600 MG TABLET.SA PO SCH (21:11)
[2018-06-04] MEDS ORDERED: LEVOTHYROXINE SODIUM 0.075 MG TABLET ONE (06:22)
[2018-06-04] MEDS: LEVOTHYROXINE SODIUM 0.075 MG TABLET PO SCH (06:30)
[2018-06-04] MEDS: BUPROPION HCL 100 MG TABLET PO SCH ×3 (06:30→22:02)
[2018-06-04 06:42] LABS: ABSOLUTE LYMPHOCYTES (AUTO) 0.6 10^3/uL (0.5-4.7); ABSOLUTE MONOCYTES (AUTO) 0.5 10^3/uL (0.1-1.4); ABSOLUTE NEUT (AUTO) 4.1 10^3/uL (1.7-8.2); BASOPHILS % (AUTO) 0.3 % (0-2); EOSINOPHILS % (AUTO) 0.1 % (0-6); HEMATOCRIT 29.7 % (36.0-47.0); LYMPHOCYTES % (AUTO) 11.9 % (13-45); MEAN CORPUSCULAR HEMOGLOBIN 28.7 pg (27.0-33.4); MEAN CORPUSCULAR HGB CONC 34.7 g/dL (32.0-36.0); MEAN CORPUSCULAR VOLUME 83 fl (80-97); MONOCYTES % (AUTO) 9.7 % (3-13); PLATELET COUNT 229 10^3/uL (150-450); RED BLOOD COUNT 3.59 10^6/uL (3.72-5.28); RED CELL DISTRIBUTION WIDTH 13.6 % (11.5-14.0); TOTAL CELLS COUNTED % (AUTO) 100 %; WHITE BLOOD COUNT 5.3 10^3/uL (4.0-10.5)
[2018-06-04 06:47] LABS: HEMOGLOBIN 10.3 g/dL (12.0-15.5)
[2018-06-04 07:39] LABS: ALANINE AMINOTRANSFERASE 43 U/L (9-52); ALBUMIN 3.2 g/dL (3.5-5.0); ALKALINE PHOSPHATASE 102 U/L (38-126); ANION GAP 8 (5-19); ASPARTATE AMINO TRANSFERASE 23 U/L (14-36); BILIRUBIN,DIRECT 0.4 mg/dL (0.0-0.4); BILIRUBIN,TOTAL 0.4 mg/dL (0.2-1.3); BLOOD UREA NITROGEN 27 mg/dL (7-20); CALCIUM 8.9 mg/dL (8.4-10.2); CARBON DIOXIDE 20 mmol/L (22-30); CHLORIDE 120 mmol/L (98-107); GLUCOSE 112 mg/dL (75-110); POTASSIUM 3.2 mmol/L (3.6-5.0); SODIUM 147.5 mmol/L (137-145); TOTAL PROTEIN 5.9 g/dL (6.3-8.2)
[2018-06-04] MEDS: INSULIN LISPRO 100 UNIT/ML 3 ML VIAL SUBCUT SCH ×4 (07:47→22:00)
[2018-06-04] MEDS ORDERED: PROPOFOL INJ 200 MG/20 ML VIAL IV ONE (09:09)
--- NOTE | 2018-06-04 09:14 | PDOC PROGRESS REPORT ---
Subjective Progress Note for:: 06/04/18 Subjective:: Patient is currently doing fair Patient's kidney function is stable Patient is scheduled for the endoscopy Patient has some coughing spells sometimes possible underlying hiatal hernia Patient's denied any chest pain to than any shortness of the breath Patient urine culture is positive currently and is sensitive to the Rocephin Reason For Visit: ARF Physical Exam Vital Signs: Temp Pulse Resp BP Pulse Ox 98.5 F 76 17 128/74 H 100 06/04/18 07:15 06/04/18 07:15 06/04/18 07:15 06/04/18 07:15 06/04/18 07:15 Intake & Output 06/03/18 06/04/18 06/05/18 06:59 06:59 06:59 Intake Total 2050 1490 Output Total 200 170 Balance 1850 1320 Weight 113.3 kg 113.3 kg General appearance: PRESENT: no acute distress, well-developed, well-nourished Head exam: PRESENT: atraumatic, normocephalic Eye exam: PRESENT: conjunctiva pink, EOMI, PERRLA. ABSENT: scleral icterus Ear exam: PRESENT: normal external ear exam Mouth exam: PRESENT: moist, tongue midline Neck exam: PRESENT: full ROM. ABSENT: carotid bruit, JVD, lymphadenopathy, thyromegaly Respiratory exam: PRESENT: clear to auscultation soham Cardiovascular exam: PRESENT: RRR. ABSENT: diastolic murmur, rubs, systolic murmur Vascular exam: PRESENT: normal capillary refill GI/Abdominal exam: PRESENT: normal bowel sounds, soft. ABSENT: distended, guarding, mass, organolmegaly, rebound, tenderness Rectal exam: PRESENT: deferred Neurological exam: PRESENT: alert, awake, oriented to person, oriented to place, oriented to time, oriented to situation, CN II-XII grossly intact. ABSENT: motor sensory deficit Psychiatric exam: PRESENT: appropriate affect, normal mood. ABSENT: homicidal ideation, suicidal ideation Skin exam: PRESENT: dry, intact, warm. ABSENT: cyanosis, rash Results Laboratory Results: 06/04/18 06:15 06/04/18 06:15 06/04/18 06/04/18 06:15 06:15 WBC 5.3 RBC 3.59 L Hgb 10.3 L D Hct 29.7 L MCV 83 MCH 28.7 MCHC 34.7 RDW 13.6 Plt Count 229 Seg Neutrophils % 78.0 Lymphocytes % 11.9 L Monocytes % 9.7 Eosinophils % 0.1 Basophils % 0.3 Absolute Neutrophils 4.1 Absolute Lymphocytes 0.6 Absolute Monocytes 0.5 Absolute Eosinophils 0.0 Absolute Basophils 0.0 Sodium 147.5 H Potassium 3.2 L Chloride 120 H Carbon Dioxide 20 L Anion Gap 8 BUN 27 H Creatinine 2.69 H Est GFR ( Amer) 23 L Est GFR (Non-Af Amer) 19 L Glucose 112 H Calcium 8.9 Total Bilirubin 0.4 AST 23 ALT 43 Alkaline Phosphatase 102 Total Protein 5.9 L Albumin 3.2 L 06/02/18 22:47 Catheterized Urine Urine Culture - Final Escherichia Coli 06/02/18 20:23 Troponin I < 0.012 Impressions: Chest X-Ray 06/02/18 19:40 IMPRESSION: No acute cardiopulmonary process copyright 2011 [employer]- All Rights Reserved Assessment & Plan - Diagnosis (1) Acute renal failure Qualifiers: Acute renal failure type: unspecified Qualified Code(s): N17.9 - Acute kidney failure, unspecified Is this a current diagnosis for this admission?: Yes Plan: Antony to IV fluid and follow with the Dr. Miller (2) Abdominal pain Qualifiers: Abdominal location: lower abdomen, unspecified Qualified Code(s): R10.30 - Lower abdominal pain, unspecified Is this a current diagnosis for this admission?: Yes Plan: Scheduled for the ultrasound and endoscopy today (3) Schizophrenia Qualifiers: Schizophrenia type: unspecified Qualified Code(s): F20.9 - Schizophrenia, unspecified Is this a current diagnosis for this admission?: Yes Plan: Is taking the several medications consult the psych for further evaluations (4) Anxiety disorder Qualifiers: Anxiety disorder type: generalized anxiety disorder Qualified Code(s): F41.1 - Generalized anxiety disorder Is this a current diagnosis for this admission?: Yes (5) Hypertension Qualifiers: Hypertension type: essential hypertension Qualified Code(s): I10 - Essential (primary) hypertension Is this a current diagnosis for this admission?: Yes (6) Dehydration Is this a current diagnosis for this admission?: Yes Plan: Start the patient on IV fluid (7) Hyperventilation Is this a current diagnosis for this admission?: Yes (8) Metabolic acidosis Is this a current diagnosis for this admission?: Yes - Time Time Spent with patient: 15-24 minutes Medications reviewed and adjusted accordingly: Yes Anticipated discharge: Home Within: Other - Plan Summary Plan Summary: Replace the potassiums We will get the CT of the chest for this coughing spell Continues the Protonix Continues to IV antibiotic Discussed with the sister regarding the patient's current conditions Discussed with the nursing staff as to the out of the bed and ambulate to the patient's
--- NOTE | 2018-06-04 09:22 | RADIOLOGY REPORT (SQ) ---
EXAM DESCRIPTION: CT CHEST WITHOUT COMPLETED DATE/TIME: 06/04/2018 9:10 am REASON FOR STUDY: cough COMPARISON: None. TECHNIQUE: CT scan performed of the chest without intravenous contrast. Images reviewed with lung, soft tissue and bone windows. Reconstructed coronal and sagittal MPR images reviewed. All images st ored on PACS. All CT scanners at this facility use dose modulation, iterative reconstruction, and/or weight based d osing when appropriate to reduce radiation dose to as low as reasonably achievable (ALARA). [facility]: Dose Right [facility]: CareDose [facility]: Dose Right [facility]: Teradose 4D [facility]: [employer] RADIATION DOSE: CT Rad equipment meets quality standard of care and radiation dose reduction techniq ues were employed. CTDIvol: 15.6 mGy. DLP: 552 mGy-cm. mGy. LIMITATIONS: No technical limitations. FINDINGS: LUNGS AND PLEURA: There are scattered small ground-glass nodules in the right lung, the la rgest about 5 mm in the right apex image 16. No solid nodules. No effusions. HILAR AND MEDIASTINAL STRUCTURES: No identified masses or abnormal nodes. No obvious aneurysm. HEART AND VASCULAR STRUCTURES: No aneurysm. No pericardial effusion. UPPER ABDOMEN: See recent report of the CT of the abdomen. THYROID AND OTHER SOFT TISSUES: No masses. No adenopathy. BONES: Nothing acute. HARDWARE: None in the chest. OTHER: No other significant findings. IMPRESSION: Occasional ground-glass nodules in the right lung, most likely infectious or inflammator y. No infiltrate. TECHNICAL DOCUMENTATION: JOB ID: [id number] Quality ID # [id number]: Final reports with documentation of one or more dose reduction techniques (e.g., Au tomated exposure control, adjustment of the mA and/or kV according to patient size, use of iterative reconstruction technique) 2010 [email or web address]- All Rights Reserved Reading location - IP/workstation name: [email or web address]
--- NOTE | 2018-06-04 10:30 | PDOC PROGRESS REPORT ---
Subjective Progress Note for:: 06/04/18 Reason For Visit: Patient seen today on the floor. She is still confused and disoriented. However she is in no distress. Discussions were done with the treating nurse. Labs and medications are reviewed which shows improving creatinine. Physical Exam Vital Signs: Temp Pulse Resp BP Pulse Ox 98.5 F 76 17 128/74 H 100 06/04/18 07:15 06/04/18 07:15 06/04/18 07:15 06/04/18 07:15 06/04/18 07:15 Intake & Output 06/03/18 06/04/18 06/05/18 06:59 06:59 06:59 Intake Total 2050 1490 Output Total 200 170 Balance 1850 1320 Weight 113.3 kg 113.3 kg Exam: She is confused and disoriented. Unable to give proper responses to questions.However she is in no acute distress and is laying in bed comfortably. Respiratory exam: PRESENT: clear to auscultation soham. ABSENT: crackles Cardiovascular exam: PRESENT: +S1, +S2 GI/Abdominal exam: PRESENT: normal bowel sounds, soft. ABSENT: organomegaly, tenderness Extremities exam: ABSENT: pedal edema Neurological exam: PRESENT: altered Skin exam: ABSENT: erythema, mottled, rash Results Laboratory Results: 06/04/18 06:15 06/04/18 06:15 06/04/18 06/04/18 06:15 06:15 WBC 5.3 RBC 3.59 L Hgb 10.3 L D Hct 29.7 L MCV 83 MCH 28.7 MCHC 34.7 RDW 13.6 Plt Count 229 Seg Neutrophils % 78.0 Lymphocytes % 11.9 L Monocytes % 9.7 Eosinophils % 0.1 Basophils % 0.3 Absolute Neutrophils 4.1 Absolute Lymphocytes 0.6 Absolute Monocytes 0.5 Absolute Eosinophils 0.0 Absolute Basophils 0.0 Sodium 147.5 H Potassium 3.2 L Chloride 120 H Carbon Dioxide 20 L Anion Gap 8 BUN 27 H Creatinine 2.69 H Est GFR ( Amer) 23 L Est GFR (Non-Af Amer) 19 L Glucose 112 H Calcium 8.9 Total Bilirubin 0.4 AST 23 ALT 43 Alkaline Phosphatase 102 Total Protein 5.9 L Albumin 3.2 L 06/02/18 22:47 Catheterized Urine Urine Culture - Final Escherichia Coli 06/02/18 20:23 Troponin I < 0.012 Impressions: Chest X-Ray 06/02/18 19:40 IMPRESSION: No acute cardiopulmonary process copyright 2011 [employer]- All Rights Reserved Chest CT 06/04/18 00:00 IMPRESSION: Occasional ground-glass nodules in the right lung, most likely infectious or inflammatory. No infiltrate. Assessment & Plan - Diagnosis (1) Acute renal failure Qualifiers: Acute renal failure type: unspecified Qualified Code(s): N17.9 - Acute kidney failure, unspecified Is this a current diagnosis for this admission?: Yes Plan: Continue present lines of management including IV fluids. However her urine cultures growing E. coli and I am going to change her Rocephin to ceftazidime as it is more sensitive. Her creatinine is improving. Follow-up on the renal ultrasound. (2) Anxiety disorder Qualifiers: Anxiety disorder type: generalized anxiety disorder Qualified Code(s): F41.1 - Generalized anxiety disorder Is this a current diagnosis for this admission?: Yes Plan: As per Dr. Reynoso. (3) Dehydration Is this a current diagnosis for this admission?: Yes Plan: I would put her back on IV fluids until she gets over her acute delirium and she is able to eat better. (4) Schizophrenia Qualifiers: Schizophrenia type: unspecified Qualified Code(s): F20.9 - Schizophrenia, unspecified Is this a current diagnosis for this admission?: Yes Plan: Continue current medications. Management as per Dr. Reynoso.
--- NOTE | 2018-06-04 11:11 | RADIOLOGY REPORT (SQ) ---
EXAM DESCRIPTION: U/S ABDOMEN COMPLETE W/O DOP COMPLETED DATE/TIME: 06/04/2018 11:01 am REASON FOR STUDY: abd pain COMPARISON: None. TECHNIQUE: Dynamic and static grayscale images acquired of the abdomen and recorded on PACS. Additio nal selected color Doppler and spectral images recorded. Note: Study does not meet criteria for complete doppler/duplex scan LIMITATIONS: None. FINDINGS: PANCREAS: No mass in the head or body. Tail is not well seen. LIVER: No masses. Echotexture normal. LIVER VASCULATURE: Normal directional flow of the main portal vein and hepatic veins. GALLBLADDER: Surgically absent. ULTRASOUND-DETECTED BROWN'S SIGN: Not applicable. INTRAHEPATIC DUCTS AND COMMON DUCT: CBD and intrahepatic ducts normal caliber. No filling defects. INFERIOR VENA CAVA: Normal flow. AORTA: No aneurysm. RIGHT KIDNEY: Normal size, 10 cm. Normal echogenicity. No solid or suspicious masses. No hydro nephrosis. No calcifications. LEFT KIDNEY: Normal size, 9.1 cm. Normal echogenicity. No solid or suspicious masses. No hydro nephrosis. No calcifications. SPLEEN: Borderline size. 13.1 cm. PERITONEAL AND PLEURAL SPACES: No ascites or effusions. OTHER: No other significant finding. IMPRESSION: Borderline splenomegaly. No other significant findings in the abdomen. TECHNICAL DOCUMENTATION: JOB ID: [id number] [employer]- All Rights Reserved Reading location - IP/workstation name: [email or web address]
--- NOTE | 2018-06-04 11:12 | RADIOLOGY REPORT (SQ) ---
EXAM DESCRIPTION: U/S NON OB PEL TV W/DOPPLER COMPLETED DATE/TIME: 06/04/2018 11:01 am REASON FOR STUDY: pelvic pain COMPARISON: None. TECHNIQUE: Dynamic and static grayscale images acquired of the pelvis via transvaginal approach and recorded on PACS. Additional selected color Doppler and spectral images recorded. LIMITATIONS: None. FINDINGS: UTERUS: Contour normal. No mass. ENDOMETRIAL STRIPE: No focal or generalized thickening. No masses. CERVIX: No nabothian cysts. RIGHT OVARY AND DOPPLER: Normal size. No worrisome masses. Simple appearing cyst measuring 2.6 cm. Normal arterial vascular flow without evidence for torsion. LEFT OVARY AND DOPPLER: Normal size. No worrisome masses. Normal arterial vascular flow without evide nce for torsion. FREE FLUID: None noted. OTHER: No other significant finding. MEASUREMENTS: UTERUS: 7.1 x 4.1 x 3.5 cm ENDOMETRIAL STRIPE: 0.7 cm RIGHT OVARY: 3.5 x 3.5 x 2.1 cm. LEFT OVARY: 2.3 x 1.7 x 1.9 cm. IMPRESSION: Simple appearing cyst of the right ovary. No other ultrasound abnormality of the pelvis . TECHNICAL DOCUMENTATION: JOB ID: [id number] [employer]- All Rights Reserved Rev Reading location - IP/workstation name: [email or web address]
--- NOTE | 2018-06-04 11:36 | Operative Report ---
Operative Report DATE OF SURGERY: 06/04/18 Operative Report: The risks benefits and alternatives of the procedure explained to the patient in detail and informed consent is obtained .A GIF Olympus video scope was inserted into the patient's mouth and hypopharynx, the esophagus is identified intubated and insufflated, the scope was then advanced through the esophagus stomach and duodenum, retroflexion maneuver is done, the esophagus stomach and first and second portions of the duodenum examined. PREOPERATIVE DIAGNOSIS: Abdominal pain, nausea vomiting POSTOPERATIVE DIAGNOSIS: Gastroparesis. Gastritis status post biopsy rule out Helicobacter pylori OPERATION: EGD with biopsy SURGEON: JOSE DAVID KELLY ANESTHESIA: LMAC TISSUE REMOVED OR ALTERED: As noted above. COMPLICATIONS: None. ESTIMATED BLOOD LOSS: None. INTRAOPERATIVE FINDINGS: As noted above. PROCEDURE: Patient tolerated the procedure well. No immediate postprocedure comp occasions are noted. Patient discharged back to her room in good condition. From [facility] Wait on biopsies Continue current care Resume regular diet Resume regular activity level
[2018-06-04] MEDS: ENOXAPARIN SODIUM INJ 40 MG/0.4 ML DISP.SYRIN SUBCUT SCH (12:55)
[2018-06-04] MEDS: PANTOPRAZOLE SODIUM 40 MG VIAL IV SCH ×2 (12:55→22:02)
[2018-06-04] MEDS: FAMOTIDINE INJ/PF 20 MG/2 ML SDV IV SCH ×2 (12:55→22:01)
[2018-06-04] MEDS: DOCUSATE SODIUM 100 MG CAPSULE PO SCH ×2 (12:56→17:06)
[2018-06-04] MEDS: SITAGLIPTIN PHOSPHATE 50 MG TABLET PO SCH (12:56)
[2018-06-04] MEDS: GUAIFENESIN 600 MG TABLET.SA PO SCH ×2 (12:56→22:01)
[2018-06-04] MEDS: CLOZAPINE 100 MG TABLET PO SCH ×2 (12:57→21:58)
[2018-06-04] MEDS: TRIHEXYPHENIDYL HCL 2 MG TABLET PO SCH (12:58)
[2018-06-04] MEDS: LITHIUM CARBONATE 450 MG TABLET.ER PO SCH (12:59)
[2018-06-04] MEDS: LORAZEPAM 1 MG TABLET PO SCH ×3 (13:03→17:06)
[2018-06-04] MEDS: PAROXETINE HCL 20 MG TABLET PO SCH (14:28)
[2018-06-04] MEDS: POTASSIUM CHLORIDE 20 MEQ/50 ML RTU IV SCH ×2 (14:28→16:31)
[2018-06-04] MEDS: PREDNISONE 20 MG TABLET PO SCH ×2 (14:29→17:06)
[2018-06-04] MEDS: CEFTRIAXONE 1 GM/D5W RTU 1 GM/50 ML RTUPB IV SCH (16:20)
[2018-06-04] MEDS: CEFTAZIDIME PENTAHYDRATE 1 GM in DEXTROSE 5%-WATER 50 ML IV SCH (21:59)
[2018-06-04] MEDS: NORMAL SALINE 1000 ML 1,000 ML IV PRN (22:04)
[2018-06-05] MEDS: LORAZEPAM 1 MG TABLET PO SCH ×3 (05:39→23:21)
[2018-06-05] MEDS: LEVOTHYROXINE SODIUM 0.075 MG TABLET PO SCH (05:40)
[2018-06-05] MEDS: BUPROPION HCL 100 MG TABLET PO SCH ×3 (05:40→23:26)
[2018-06-05 06:18] LABS: ABSOLUTE LYMPHOCYTES (AUTO) 0.5 10^3/uL (0.5-4.7); ABSOLUTE MONOCYTES (AUTO) 0.4 10^3/uL (0.1-1.4); ABSOLUTE NEUT (AUTO) 4.3 10^3/uL (1.7-8.2); BASOPHILS % (AUTO) 0.3 % (0-2); HEMATOCRIT 28.7 % (36.0-47.0); HEMOGLOBIN 9.9 g/dL (12.0-15.5); LYMPHOCYTES % (AUTO) 9.7 % (13-45); MEAN CORPUSCULAR HEMOGLOBIN 28.6 pg (27.0-33.4); MEAN CORPUSCULAR HGB CONC 34.6 g/dL (32.0-36.0); MEAN CORPUSCULAR VOLUME 83 fl (80-97); MONOCYTES % (AUTO) 8.3 % (3-13); PLATELET COUNT 244 10^3/uL (150-450); RED BLOOD COUNT 3.47 10^6/uL (3.72-5.28); RED CELL DISTRIBUTION WIDTH 14.2 % (11.5-14.0); SEGMENTED NEUTROPHILS % (AUTO) 81.7 % (42-78); TOTAL CELLS COUNTED % (AUTO) 100 %; WHITE BLOOD COUNT 5.3 10^3/uL (4.0-10.5)
[2018-06-05 07:00] LABS: ALANINE AMINOTRANSFERASE 27 U/L (9-52); ALBUMIN 3.3 g/dL (3.5-5.0); ALKALINE PHOSPHATASE 104 U/L (38-126); ANION GAP 8 (5-19); ASPARTATE AMINO TRANSFERASE 16 U/L (14-36); BILIRUBIN,DIRECT 0.2 mg/dL (0.0-0.4); BILIRUBIN,TOTAL 0.2 mg/dL (0.2-1.3); BLOOD UREA NITROGEN 20 mg/dL (7-20); CALCIUM 8.9 mg/dL (8.4-10.2); CARBON DIOXIDE 19 mmol/L (22-30); CHLORIDE 121 mmol/L (98-107); GLUCOSE 154 mg/dL (75-110); POTASSIUM 3.9 mmol/L (3.6-5.0); TOTAL PROTEIN 5.9 g/dL (6.3-8.2)
--- NOTE | 2018-06-05 08:48 | PDOC PROGRESS REPORT ---
Subjective Progress Note for:: 06/05/18 Subjective:: Patient is currently doing fair Complaining of some mild cough on and off Patient CT scan of the chest with some groundglass opacity with some mild inflammatory changes Patient endoscopy suggested gastroparesis Patient's otherwise denied any chest pain to than any shortness of the breath Reason For Visit: ARF Physical Exam Vital Signs: Temp Pulse Resp BP Pulse Ox 97.9 F 79 16 136/78 H 99 06/05/18 07:26 06/05/18 07:26 06/05/18 07:26 06/05/18 07:26 06/05/18 07:26 Intake & Output 06/04/18 06/05/18 06/06/18 06:59 06:59 06:59 Intake Total 2490 1680 Output Total 170 0 Balance 2320 1680 Weight 113.3 kg 113.3 kg General appearance: PRESENT: no acute distress, well-developed, well-nourished Head exam: PRESENT: atraumatic, normocephalic Eye exam: PRESENT: conjunctiva pink, EOMI, PERRLA. ABSENT: scleral icterus Ear exam: PRESENT: normal external ear exam Mouth exam: PRESENT: moist, tongue midline Neck exam: PRESENT: full ROM. ABSENT: carotid bruit, JVD, lymphadenopathy, t hyromegaly Respiratory exam: PRESENT: clear to auscultation sohma Cardiovascular exam: PRESENT: RRR. ABSENT: diastolic murmur, rubs, systolic murmur Vascular exam: PRESENT: normal capillary refill GI/Abdominal exam: PRESENT: normal bowel sounds, soft. ABSENT: distended, guarding, mass, organolmegaly, rebound, tenderness Rectal exam: PRESENT: deferred Musculoskeletal exam: PRESENT: ambulatory Neurological exam: PRESENT: alert, awake, oriented to person, oriented to place, oriented to time, oriented to situation, CN II-XII grossly intact. ABSENT: motor sensory deficit Psychiatric exam: PRESENT: appropriate affect, normal mood. ABSENT: homicidal ideation, suicidal ideation Skin exam: PRESENT: dry, intact, warm. ABSENT: cyanosis, rash Results Laboratory Results: 06/05/18 05:32 06/05/18 05:32 06/05/18 06/05/18 05:32 05:32 WBC 5.3 RBC 3.47 L Hgb 9.9 L Hct 28.7 L MCV 83 MCH 28.6 MCHC 34.6 RDW 14.2 H Plt Count 244 Seg Neutrophils % 81.7 H Lymphocytes % 9.7 L Monocytes % 8.3 Eosinophils % 0.0 Basophils % 0.3 Absolute Neutrophils 4.3 Absolute Lymphocytes 0.5 Absolute Monocytes 0.4 Absolute Eosinophils 0.0 Absolute Basophils 0.0 Sodium 148.0 H Potassium 3.9 Chloride 121 H Carbon Dioxide 19 L Anion Gap 8 BUN 20 Creatinine 2.19 H Est GFR ( Amer) 29 L Est GFR (Non-Af Amer) 24 L Glucose 154 H Calcium 8.9 Total Bilirubin 0.2 AST 16 ALT 27 Alkaline Phosphatase 104 Total Protein 5.9 L Albumin 3.3 L 06/02/18 22:47 Catheterized Urine Urine Culture - Final Escherichia Coli 06/02/18 20:23 Troponin I < 0.012 Impressions: Chest X-Ray 06/02/18 19:40 IMPRESSION: No acute cardiopulmonary process copyright 2011 [employer]- All Rights Reserved Abdomen Ultrasound 06/04/18 00:00 IMPRESSION: Borderline splenomegaly. No other significant findings in the abdomen. Chest CT 06/04/18 00:00 IMPRESSION: Occasional ground-glass nodules in the right lung, most likely infectious or inflammatory. No infiltrate. Transvaginal US 06/04/18 00:00 IMPRESSION: Simple appearing cyst of the right ovary. No other ultrasound abnormality of the pelvis. Assessment & Plan - Diagnosis (1) Acute renal failure Qualifiers: Acute renal failure type: unspecified Qualified Code(s): N17.9 - Acute kidney failure, unspecified Is this a current diagnosis for this admission?: Yes Plan: Currently all improving (2) Abdominal pain Qualifiers: Abdominal location: lower abdomen, unspecified Qualified Code(s): R10.30 - Lower abdominal pain, unspecified Is this a current diagnosis for this admission?: Yes Plan: Scheduled for the ultrasound and endoscopy today (3) Schizophrenia Qualifiers: Schizophrenia type: unspecified Qualified Code(s): F20.9 - Schizophrenia, unspecified Is this a current diagnosis for this admission?: Yes Plan: Is taking the several medications consult the psych for further evaluations (4) Anxiety disorder Qualifiers: Anxiety disorder type: generalized anxiety disorder Qualified Code(s): F41.1 - Generalized anxiety disorder Is this a current diagnosis for this admission?: Yes (5) Hypertension Qualifiers: Hypertension type: essential hypertension Qualified Code(s): I10 - Essential (primary) hypertension Is this a current diagnosis for this admission?: Yes (6) Dehydration Is this a current diagnosis for this admission?: Yes (7) Hyperventilation Is this a current diagnosis for this admission?: Yes Plan: Most likely due to the underlying psych disorder currently all stable (8) Metabolic acidosis Is this a current diagnosis for this admission?: Yes Plan: Due to the hyperventilation's with the respiratory alkalosis and metabolic acidosis due to the renal failure We will continues IV fluids sodium bicarb consult nephrology (9) Cough Is this a current diagnosis for this admission?: Yes Plan: We will start the patient on the doxycycline (10) Urinary tract infection Qualifiers: Hematuria presence: without hematuria Is this a current diagnosis for this admission?: Yes Plan: Continues to IV antibiotic - Time Time Spent with patient: 15-24 minutes Medications reviewed and adjusted accordingly: Yes Anticipated discharge: Home Within: Other - Plan Summary Plan Summary: IV fluid continues to IV antibiotic
[2018-06-05] MEDS: CEFTAZIDIME PENTAHYDRATE 1 GM in DEXTROSE 5%-WATER 50 ML IV SCH ×2 (09:29→23:22)
[2018-06-05] MEDS: FAMOTIDINE INJ/PF 20 MG/2 ML SDV IV SCH ×2 (09:29→23:25)
[2018-06-05] MEDS: GUAIFENESIN 600 MG TABLET.SA PO SCH ×2 (09:30→23:24)
[2018-06-05] MEDS: CLOZAPINE 100 MG TABLET PO SCH ×2 (09:30→23:22)
[2018-06-05] MEDS: PAROXETINE HCL 20 MG TABLET PO SCH (09:30)
[2018-06-05] MEDS: LITHIUM CARBONATE 450 MG TABLET.ER PO SCH (09:30)
[2018-06-05] MEDS: PANTOPRAZOLE SODIUM 40 MG VIAL IV SCH ×2 (09:31→23:25)
[2018-06-05] MEDS: TRIHEXYPHENIDYL HCL 2 MG TABLET PO SCH (09:31)
[2018-06-05] MEDS: DOXYCYCLINE HYCLATE 100 MG TABLET PO SCH ×2 (09:31→23:25)
[2018-06-05] MEDS: SITAGLIPTIN PHOSPHATE 50 MG TABLET PO SCH (09:31)
[2018-06-05] MEDS: DOCUSATE SODIUM 100 MG CAPSULE PO SCH ×3 (09:32→17:03)
[2018-06-05] MEDS: ENOXAPARIN SODIUM INJ 40 MG/0.4 ML DISP.SYRIN SUBCUT SCH (09:34)
[2018-06-05] MEDS: INSULIN LISPRO 100 UNIT/ML 3 ML VIAL SUBCUT SCH ×4 (11:29→23:23)
--- NOTE | 2018-06-05 12:09 | PDOC PROGRESS REPORT ---
Subjective Progress Note for:: 06/05/18 Reason For Visit: Seen patient this morning. She is more awake alert and more responsive to questions and she is not delirious like she was earlier. Labs and medications were reviewed. She has dysuria but better than what it has been in the past. Renal numbers are improving. Physical Exam Vital Signs: Temp Pulse Resp BP Pulse Ox 97.9 F 79 16 136/78 H 99 06/05/18 07:26 06/05/18 07:26 06/05/18 07:26 06/05/18 07:26 06/05/18 07:26 Intake & Output 06/04/18 06/05/18 06/06/18 06:59 06:59 06:59 Intake Total 2490 1680 Output Total 170 0 Balance 2320 1680 Weight 113.3 kg 113.3 kg General appearance: PRESENT: no acute distress Respiratory exam: PRESENT: clear to auscultation soham. ABSENT: crackles Cardiovascular exam: PRESENT: +S1, +S2 GI/Abdominal exam: PRESENT: normal bowel sounds, soft. ABSENT: organomegaly, tenderness Extremities exam: ABSENT: pedal edema Skin exam: ABSENT: cyanosis, erythema, mottled, rash Results Laboratory Results: 06/05/18 05:32 06/05/18 05:32 06/05/18 06/05/18 05:32 05:32 WBC 5.3 RBC 3.47 L Hgb 9.9 L Hct 28.7 L MCV 83 MCH 28.6 MCHC 34.6 RDW 14.2 H Plt Count 244 Seg Neutrophils % 81.7 H Lymphocytes % 9.7 L Monocytes % 8.3 Eosinophils % 0.0 Basophils % 0.3 Absolute Neutrophils 4.3 Absolute Lymphocytes 0.5 Absolute Monocytes 0.4 Absolute Eosinophils 0.0 Absolute Basophils 0.0 Sodium 148.0 H Potassium 3.9 Chloride 121 H Carbon Dioxide 19 L Anion Gap 8 BUN 20 Creatinine 2.19 H Est GFR ( Amer) 29 L Est GFR (Non-Af Amer) 24 L Glucose 154 H Calcium 8.9 Total Bilirubin 0.2 AST 16 ALT 27 Alkaline Phosphatase 104 Total Protein 5.9 L Albumin 3.3 L 06/02/18 20:23 Troponin I < 0.012 Impressions: Chest X-Ray 06/02/18 19:40 IMPRESSION: No acute cardiopulmonary process copyright 2011 [employer]- All Rights Reserved Abdomen Ultrasound 06/04/18 00:00 IMPRESSION: Borderline splenomegaly. No other significant findings in the abdomen. Chest CT 06/04/18 00:00 IMPRESSION: Occasional ground-glass nodules in the right lung, most likely i nfectious or inflammatory. No infiltrate. Transvaginal US 06/04/18 00:00 IMPRESSION: Simple appearing cyst of the right ovary. No other ultrasound abnormality of the pelvis. Assessment & Plan - Diagnosis (1) Acute renal failure Qualifiers: Acute renal failure type: unspecified Qualified Code(s): N17.9 - Acute kidney failure, unspecified Is this a current diagnosis for this admission?: Yes Plan: Continue present lines of management including IV fluids. (2) Anxiety disorder Qualifiers: Anxiety disorder type: generalized anxiety disorder Qualified Code(s): F41.1 - Generalized anxiety disorder Is this a current diagnosis for this admission?: Yes Plan: As per Dr. Reynoso. (3) Dehydration Is this a current diagnosis for this admission?: Yes Plan: I We will continue on IV fluids for now as her renal numbers are improving. (4) Schizophrenia Qualifiers: Schizophrenia type: unspecified Qualified Code(s): F20.9 - Schizophrenia, unspecified Is this a current diagnosis for this admission?: Yes Plan: Continue current medications. Management as per Dr. Reynoso. (5) UTI (urinary tract infection) Plan: E. coli on micro and I have changed her antibiotics to ceftazidime. Continue on current antibiotics as she is clinically also improving. (6) Sepsis due to gram-negative UTI Plan: Her clinical presentation at the onset was that of UTI with sepsis. Now it is confirmed with the growth of E. coli. Clinically she is a whole lot better mentally and her white count has dropped as well. Continue on current management.
[2018-06-05 12:33] LABS: ABSOLUTE RETICS # 0.054 10^6/uL (0.028-0.122); RETICULOCYTE COUNT (AUTO) 1.54 % (0.66-2.85)
[2018-06-05 12:54] LABS: IRON(TIBC) 35.4 ug/dL (37-170)
[2018-06-06] MEDS: LORAZEPAM 1 MG TABLET PO SCH ×3 (06:17→21:19)
[2018-06-06] MEDS: LEVOTHYROXINE SODIUM 0.075 MG TABLET PO SCH (06:18)
[2018-06-06] MEDS: BUPROPION HCL 100 MG TABLET PO SCH ×3 (06:18→21:19)
[2018-06-06 07:35] LABS: ABSOLUTE LYMPHOCYTES (AUTO) 1.5 10^3/uL (0.5-4.7); ABSOLUTE MONOCYTES (AUTO) 0.6 10^3/uL (0.1-1.4); BASOPHILS % (AUTO) 0.1 % (0-2); HEMOGLOBIN 10.3 g/dL (12.0-15.5); LYMPHOCYTES % (AUTO) 18.7 % (13-45); MEAN CORPUSCULAR HEMOGLOBIN 28.6 pg (27.0-33.4); MEAN CORPUSCULAR HGB CONC 34.3 g/dL (32.0-36.0); MEAN CORPUSCULAR VOLUME 83 fl (80-97); MONOCYTES % (AUTO) 7.9 % (3-13); PLATELET COUNT 275 10^3/uL (150-450); RED BLOOD COUNT 3.59 10^6/uL (3.72-5.28); RED CELL DISTRIBUTION WIDTH 14.1 % (11.5-14.0); SEGMENTED NEUTROPHILS % (AUTO) 73.3 % (42-78); TOTAL CELLS COUNTED % (AUTO) 100 %; WHITE BLOOD COUNT 8.2 10^3/uL (4.0-10.5)
[2018-06-06 07:50] LABS: ALANINE AMINOTRANSFERASE 34 U/L (9-52); ALBUMIN 3.5 g/dL (3.5-5.0); ALKALINE PHOSPHATASE 95 U/L (38-126); ANION GAP 8 (5-19); ASPARTATE AMINO TRANSFERASE 21 U/L (14-36); BILIRUBIN,DIRECT 0.2 mg/dL (0.0-0.4); BILIRUBIN,TOTAL 0.2 mg/dL (0.2-1.3); BLOOD UREA NITROGEN 22 mg/dL (7-20); CALCIUM 9.3 mg/dL (8.4-10.2); CARBON DIOXIDE 23 mmol/L (22-30); CHLORIDE 118 mmol/L (98-107); GLUCOSE 86 mg/dL (75-110); POTASSIUM 3.6 mmol/L (3.6-5.0); SODIUM 148.5 mmol/L (137-145); TOTAL PROTEIN 5.9 g/dL (6.3-8.2)
[2018-06-06] MEDS: INSULIN LISPRO 100 UNIT/ML 3 ML VIAL SUBCUT SCH ×4 (09:15→21:25)
[2018-06-06] MEDS: CEFTAZIDIME PENTAHYDRATE 1 GM in DEXTROSE 5%-WATER 50 ML IV SCH ×2 (09:18→21:18)
[2018-06-06] MEDS: DOCUSATE SODIUM 100 MG CAPSULE PO SCH ×2 (09:19→18:01)
[2018-06-06] MEDS: SITAGLIPTIN PHOSPHATE 50 MG TABLET PO SCH (09:19)
[2018-06-06] MEDS: GUAIFENESIN 600 MG TABLET.SA PO SCH ×2 (09:19→21:19)
[2018-06-06] MEDS: ENOXAPARIN SODIUM INJ 40 MG/0.4 ML DISP.SYRIN SUBCUT SCH (09:19)
[2018-06-06] MEDS: CLOZAPINE 100 MG TABLET PO SCH ×2 (09:20→21:19)
[2018-06-06] MEDS: TRIHEXYPHENIDYL HCL 2 MG TABLET PO SCH (09:20)
[2018-06-06] MEDS: PAROXETINE HCL 20 MG TABLET PO SCH (09:20)
[2018-06-06] MEDS: DOXYCYCLINE HYCLATE 100 MG TABLET PO SCH (09:20)
[2018-06-06] MEDS: LITHIUM CARBONATE 450 MG TABLET.ER PO SCH (09:20)
--- NOTE | 2018-06-06 13:03 | PDOC PROGRESS REPORT ---
Subjective Progress Note for:: 06/06/18 Subjective:: Patient is currently doing well Except still has some cough No chest pain no short of breath Reason For Visit: ARF Physical Exam Vital Signs: Temp Pulse Resp BP Pulse Ox 97.9 F 82 15 143/77 H 97 06/06/18 11:17 06/06/18 12:11 06/06/18 12:11 06/06/18 11:17 06/06/18 12:11 Intake & Output 06/05/18 06/06/18 06/07/18 06:59 06:59 06:59 Intake Total 1680 860 Output Total 0 Balance 1680 860 Weight 113.3 kg 113.3 kg General appearance: PRESENT: no acute distress, well-developed, well-nourished Head exam: PRESENT: atraumatic, normocephalic Eye exam: PRESENT: conjunctiva pink, EOMI, PERRLA. ABSENT: scleral icterus Ear exam: PRESENT: normal external ear exam Mouth exam: PRESENT: moist, tongue midline Neck exam: PRESENT: full ROM. ABSENT: carotid bruit, JVD, lymphadenopathy, t hyromegaly Respiratory exam: PRESENT: clear to auscultation soham Cardiovascular exam: PRESENT: RRR. ABSENT: diastolic murmur, rubs, systolic murmur Pulses: PRESENT: normal dorsalis pedis pul, +2 pedal pulses bilateral Vascular exam: PRESENT: normal capillary refill GI/Abdominal exam: PRESENT: normal bowel sounds, soft. ABSENT: distended, guarding, mass, organolmegaly, rebound, tenderness Rectal exam: PRESENT: deferred Musculoskeletal exam: PRESENT: ambulatory Neurological exam: PRESENT: alert, awake, oriented to person, oriented to place, oriented to time, oriented to situation, CN II-XII grossly intact. ABSENT: motor sensory deficit Psychiatric exam: PRESENT: appropriate affect, normal mood. ABSENT: homicidal ideation, suicidal ideation Skin exam: PRESENT: dry, intact, warm. ABSENT: cyanosis, rash Results Laboratory Results: 06/06/18 06:08 06/06/18 06:08 06/05/18 06/06/18 06/06/18 05:32 06:08 06:08 WBC 8.2 RBC 3.59 L Hgb 10.3 L Hct 30.0 L MCV 83 MCH 28.6 MCHC 34.3 RDW 14.1 H Plt Count 275 Seg Neutrophils % 73.3 Lymphocytes % 18.7 Monocytes % 7.9 Eosinophils % 0.0 Basophils % 0.1 Absolute Neutrophils 6.0 Absolute Lymphocytes 1.5 Absolute Monocytes 0.6 Absolute Eosinophils 0.0 Absolute Basophils 0.0 Sodium 148.5 H Potassium 3.6 Chloride 118 H Carbon Dioxide 23 Anion Gap 8 BUN 22 H Creatinine 2.06 H Est GFR ( Amer) 32 L Est GFR (Non-Af Amer) 26 L Glucose 86 Calcium 9.3 Iron 35.4 L TIBC 291 % Saturation 12 Ferritin 76.00 Total Bilirubin 0.2 AST 21 ALT 34 Alkaline Phosphatase 95 Total Protein 5.9 L Albumin 3.5 Vitamin B12 885.0 Folate 14.10 06/02/18 20:23 Troponin I < 0.012 Impressions: Chest X-Ray 06/02/18 19:40 IMPRESSION: No acute cardiopulmonary process copyright 2011 [employer]- All Rights Reserved Abdomen Ultrasound 06/04/18 00:00 IMPRESSION: Borderline splenomegaly. No other significant findings in the abdomen. Chest CT 06/04/18 00:00 IMPRESSION: Occasional ground-glass nodules in the right lung, most likely infectious or inflammatory. No infiltrate. Transvaginal US 06/04/18 00:00 IMPRESSION: Simple appearing cyst of the right ovary. No other ultrasound ab normality of the pelvis. Assessment & Plan - Diagnosis (1) Acute renal failure Qualifiers: Acute renal failure type: unspecified Qualified Code(s): N17.9 - Acute kidney failure, unspecified Is this a current diagnosis for this admission?: Yes Plan: Currently all improving reduce the IV fluid (2) Abdominal pain Qualifiers: Abdominal location: lower abdomen, unspecified Qualified Code(s): R10.30 - Lower abdominal pain, unspecified Is this a current diagnosis for this admission?: Yes Plan: Scheduled for the ultrasound and endoscopy today (3) Schizophrenia Qualifiers: Schizophrenia type: unspecified Qualified Code(s): F20.9 - Schizophrenia, unspecified Is this a current diagnosis for this admission?: Yes Plan: Is taking the several medications consult the psych for further evaluations (4) Anxiety disorder Qualifiers: Anxiety disorder type: generalized anxiety disorder Qualified Code(s): F41.1 - Generalized anxiety disorder Is this a current diagnosis for this admission?: Yes (5) Hypertension Qualifiers: Hypertension type: essential hypertension Qualified Code(s): I10 - Essential (primary) hypertension Is this a current diagnosis for this admission?: Yes (6) Dehydration Is this a current diagnosis for this admission?: Yes Plan: Start the patient on IV fluid (7) Hyperventilation Is this a current diagnosis for this admission?: Yes (8) Metabolic acidosis Is this a current diagnosis for this admission?: Yes (9) Cough Is this a current diagnosis for this admission?: Yes Plan: Per discussed with Dr. Ma suggested try the Zithromax instead of the doxycycline possible bronchiectasis (10) Urinary tract infection Qualifiers: Hematuria presence: without hematuria Is this a current diagnosis for this admission?: Yes Plan: Continues to IV antibiotic - Time Time Spent with patient: 15-24 minutes Medications reviewed and adjusted accordingly: Yes Anticipated discharge: Home Within: Other - Plan Summary Plan Summary: Continues to current medication
[2018-06-06] MEDS: LANSOPRAZOLE 30 MG TAB.RAP.DR PO SCH (18:01)
[2018-06-07] MEDS: NORMAL SALINE 1000 ML 1,000 ML IV PRN ×2 (00:05→23:19)
[2018-06-07] MEDS: LANSOPRAZOLE 30 MG TAB.RAP.DR PO SCH ×2 (05:36→17:43)
[2018-06-07] MEDS: BUPROPION HCL 100 MG TABLET PO SCH ×3 (05:36→21:07)
[2018-06-07] MEDS: LEVOTHYROXINE SODIUM 0.075 MG TABLET PO SCH (05:36)
[2018-06-07] MEDS: LORAZEPAM 1 MG TABLET PO SCH ×3 (05:36→21:07)
[2018-06-07 06:15] LABS: ABSOLUTE LYMPHOCYTES (AUTO) 1.5 10^3/uL (0.5-4.7); ABSOLUTE MONOCYTES (AUTO) 0.5 10^3/uL (0.1-1.4); ABSOLUTE NEUT (AUTO) 4.6 10^3/uL (1.7-8.2); BASOPHILS % (AUTO) 0.3 % (0-2); HEMATOCRIT 27.6 % (36.0-47.0); HEMOGLOBIN 9.5 g/dL (12.0-15.5); LYMPHOCYTES % (AUTO) 22.8 % (13-45); MEAN CORPUSCULAR HEMOGLOBIN 28.6 pg (27.0-33.4); MEAN CORPUSCULAR HGB CONC 34.5 g/dL (32.0-36.0); MEAN CORPUSCULAR VOLUME 83 fl (80-97); MONOCYTES % (AUTO) 7.4 % (3-13); PLATELET COUNT 239 10^3/uL (150-450); RED BLOOD COUNT 3.33 10^6/uL (3.72-5.28); RED CELL DISTRIBUTION WIDTH 14.2 % (11.5-14.0); SEGMENTED NEUTROPHILS % (AUTO) 69.5 % (42-78); TOTAL CELLS COUNTED % (AUTO) 100 %; WHITE BLOOD COUNT 6.7 10^3/uL (4.0-10.5)
[2018-06-07 06:31] LABS: ANION GAP 5 (5-19); BLOOD UREA NITROGEN 22 mg/dL (7-20); CALCIUM 8.9 mg/dL (8.4-10.2); CARBON DIOXIDE 24 mmol/L (22-30); CHLORIDE 118 mmol/L (98-107); GLUCOSE 87 mg/dL (75-110); POTASSIUM 3.7 mmol/L (3.6-5.0); SODIUM 147.3 mmol/L (137-145)
[2018-06-07] MEDS: INSULIN LISPRO 100 UNIT/ML 3 ML VIAL SUBCUT SCH ×4 (08:51→21:48)
[2018-06-07] MEDS: AZITHROMYCIN 250 MG TABLET PO SCH (10:12)
[2018-06-07] MEDS: ACETAMINOPHEN 325 MG TABLET PO PRN (10:12)
[2018-06-07] MEDS: SITAGLIPTIN PHOSPHATE 50 MG TABLET PO SCH (10:13)
[2018-06-07] MEDS: DOCUSATE SODIUM 100 MG CAPSULE PO SCH ×2 (10:13→17:43)
[2018-06-07] MEDS: GUAIFENESIN 600 MG TABLET.SA PO SCH ×2 (10:13→21:07)
[2018-06-07] MEDS: TRIHEXYPHENIDYL HCL 2 MG TABLET PO SCH (10:14)
[2018-06-07] MEDS: LITHIUM CARBONATE 450 MG TABLET.ER PO SCH (10:14)
[2018-06-07] MEDS: CLOZAPINE 100 MG TABLET PO SCH ×2 (10:14→21:07)
[2018-06-07] MEDS: PAROXETINE HCL 20 MG TABLET PO SCH (10:14)
[2018-06-07] MEDS: ONDANSETRON HCL INJ/PF 4 MG/2 ML SDV IV PRN (10:15)
[2018-06-07] MEDS: ENOXAPARIN SODIUM INJ 40 MG/0.4 ML DISP.SYRIN SUBCUT SCH (10:15)
[2018-06-07] MEDS: CEFTAZIDIME PENTAHYDRATE 1 GM in DEXTROSE 5%-WATER 50 ML IV SCH ×2 (10:30→21:07)
--- NOTE | 2018-06-07 19:12 | PDOC PROGRESS REPORT ---
Subjective Progress Note for:: 06/07/18 Subjective:: Patient seen by the bedside, she was admitted for the management of E. coli sepsis, UTI, acute kidney injury Reason For Visit: ARF Physical Exam Vital Signs: Temp Pulse Resp BP Pulse Ox 98.1 F 74 18 134/79 H 80 L 06/07/18 16:18 06/07/18 16:18 06/07/18 16:18 06/07/18 16:18 06/07/18 16:18 Intake & Output 06/06/18 06/07/18 06/08/18 06:59 06:59 06:59 Intake Total 860 1380 2263 Balance 860 1380 2263 Weight 113.3 kg 113.3 kg General appearance: PRESENT: no acute distress Eye exam: PRESENT: PERRLA Respiratory exam: PRESENT: clear to auscultation soham Cardiovascular exam: PRESENT: +S1, +S2 Neurological exam: PRESENT: alert Results Laboratory Results: 06/07/18 05:25 06/07/18 05:25 06/07/18 06/07/18 05:25 05:25 WBC 6.7 RBC 3.33 L Hgb 9.5 L Hct 27.6 L MCV 83 MCH 28.6 MCHC 34.5 RDW 14.2 H Plt Count 239 Seg Neutrophils % 69.5 Lymphocytes % 22.8 Monocytes % 7.4 Eosinophils % 0.0 Basophils % 0.3 Absolute Neutrophils 4.6 Absolute Lymphocytes 1.5 Absolute Monocytes 0.5 Absolute Eosinophils 0.0 Absolute Basophils 0.0 Sodium 147.3 H Potassium 3.7 Chloride 118 H Carbon Dioxide 24 Anion Gap 5 BUN 22 H Creatinine 1.75 H Est GFR ( Amer) 38 L Est GFR (Non-Af Amer) 31 L Glucose 87 Calcium 8.9 06/02/18 20:23 Troponin I < 0.012 Impressions: Chest X-Ray 06/02/18 19:40 IMPRESSION: No acute cardiopulmonary process copyright 2011 [employer]- All Rights Reserved Abdomen Ultrasound 06/04/18 00:00 IMPRESSION: Borderline splenomegaly. No other significant findings in the abdomen. Chest CT 06/04/18 00:00 IMPRESSION: Occasional ground-glass nodules in the right lung, most likely infectious or inflammatory. No infiltrate. Transvaginal US 06/04/18 00:00 IMPRESSION: Simple appearing cyst of the right ovary. No other ultrasound abnormality of the pelvis. Assessment & Plan - Diagnosis (1) Acute kidney injury Is this a current diagnosis for this admission?: Yes Plan: Continue treatment (2) E. coli UTI Is this a current diagnosis for this admission?: Yes (3) Sepsis due to gram-negative UTI Is this a current diagnosis for this admission?: Yes
[2018-06-08] MEDS: LANSOPRAZOLE 30 MG TAB.RAP.DR PO SCH ×2 (05:55→17:21)
[2018-06-08] MEDS: LEVOTHYROXINE SODIUM 0.075 MG TABLET PO SCH (05:55)
[2018-06-08] MEDS: LORAZEPAM 1 MG TABLET PO SCH ×3 (05:55→21:53)
[2018-06-08] MEDS: BUPROPION HCL 100 MG TABLET PO SCH ×3 (05:55→21:53)
[2018-06-08 07:18] LABS: ANION GAP 7 (5-19); BLOOD UREA NITROGEN 24 mg/dL (7-20); CALCIUM 9.1 mg/dL (8.4-10.2); CARBON DIOXIDE 23 mmol/L (22-30); CHLORIDE 117 mmol/L (98-107); GLUCOSE 87 mg/dL (75-110); POTASSIUM 3.9 mmol/L (3.6-5.0); SODIUM 146.9 mmol/L (137-145)
[2018-06-08] MEDS: INSULIN LISPRO 100 UNIT/ML 3 ML VIAL SUBCUT SCH ×4 (09:24→21:45)
[2018-06-08] MEDS: SITAGLIPTIN PHOSPHATE 50 MG TABLET PO SCH (09:33)
[2018-06-08] MEDS: CEFTAZIDIME PENTAHYDRATE 1 GM in DEXTROSE 5%-WATER 50 ML IV SCH ×2 (09:33→21:52)
[2018-06-08] MEDS: GUAIFENESIN 600 MG TABLET.SA PO SCH ×2 (09:33→21:53)
[2018-06-08] MEDS: DOCUSATE SODIUM 100 MG CAPSULE PO SCH ×2 (09:33→17:21)
[2018-06-08] MEDS: ENOXAPARIN SODIUM INJ 40 MG/0.4 ML DISP.SYRIN SUBCUT SCH (09:33)
[2018-06-08] MEDS: AZITHROMYCIN 250 MG TABLET PO SCH (09:33)
[2018-06-08] MEDS: LITHIUM CARBONATE 450 MG TABLET.ER PO SCH (09:34)
[2018-06-08] MEDS: PAROXETINE HCL 20 MG TABLET PO SCH (09:34)
[2018-06-08] MEDS: CLOZAPINE 100 MG TABLET PO SCH ×2 (09:34→21:53)
[2018-06-08] MEDS: TRIHEXYPHENIDYL HCL 2 MG TABLET PO SCH (09:34)
[2018-06-08] MEDS: NORMAL SALINE 1000 ML 1,000 ML IV PRN (17:21)
--- NOTE | 2018-06-08 17:55 | PDOC PROGRESS REPORT ---
Subjective Progress Note for:: 06/08/18 Subjective:: Patient has no new complaints Reason For Visit: ARF Physical Exam Vital Signs: Temp Pulse Resp BP Pulse Ox 97.6 F 92 20 121/73 100 06/08/18 11:14 06/08/18 14:00 06/08/18 11:14 06/08/18 11:14 06/08/18 11:14 Intake & Output 06/07/18 06/08/18 06/09/18 06:59 06:59 06:59 Intake Total 1380 3213 1050 Output Total 2500 Balance 7065 850 7488 Weight 113.3 kg 90.7 kg General appearance: PRESENT: no acute distress Eye exam: PRESENT: PERRLA Respiratory exam: PRESENT: clear to auscultation soham Cardiovascular exam: PRESENT: +S1, +S2 Results Laboratory Results: 06/07/18 05:25 06/08/18 06:49 06/08/18 06:49 Sodium 146.9 H Potassium 3.9 Chloride 117 H Carbon Dioxide 23 Anion Gap 7 BUN 24 H Creatinine 1.59 H Est GFR ( Amer) 42 L Est GFR (Non-Af Amer) 35 L Glucose 87 Calcium 9.1 06/03/18 00:33 Blood Blood Culture - Final NO GROWTH IN 5 DAYS 06/02/18 22:17 Blood Blood Culture - Final NO GROWTH IN 5 DAYS 06/02/18 20:23 Troponin I < 0.012 Impressions: Chest X-Ray 06/02/18 19:40 IMPRESSION: No acute cardiopulmonary process copyright 2011 [employer]- All Rights Reserved Abdomen Ultrasound 06/04/18 00:00 IMPRESSION: Borderline splenomegaly. No other significant findings in the abdomen. Chest CT 06/04/18 00:00 IMPRESSION: Occasional ground-glass nodules in the right lung, most likely infectious or inflammatory. No infiltrate. Transvaginal US 06/04/18 00:00 IMPRESSION: Simple appearing cyst of the right ovary. No other ultrasound abnormality of the pelvis. Assessment & Plan - Diagnosis (1) Acute kidney injury Is this a current diagnosis for this admission?: Yes Plan: Continue treatment (2) E. coli UTI Is this a current diagnosis for this admission?: Yes (3) Sepsis due to gram-negative UTI Is this a current diagnosis for this admission?: Yes
[2018-06-09] MEDS: LORAZEPAM 1 MG TABLET PO SCH (05:27)
[2018-06-09] MEDS: LEVOTHYROXINE SODIUM 0.075 MG TABLET PO SCH (05:27)
[2018-06-09] MEDS: BUPROPION HCL 100 MG TABLET PO SCH (05:27)
[2018-06-09] MEDS: LANSOPRAZOLE 30 MG TAB.RAP.DR PO SCH (05:27)
[2018-06-09 05:57] LABS: ABSOLUTE LYMPHOCYTES (AUTO) 1.4 10^3/uL (0.5-4.7); ABSOLUTE MONOCYTES (AUTO) 0.6 10^3/uL (0.1-1.4); ABSOLUTE NEUT (AUTO) 5.2 10^3/uL (1.7-8.2); BASOPHILS % (AUTO) 0.3 % (0-2); EOSINOPHILS % (AUTO) 0.1 % (0-6); HEMOGLOBIN 10.2 g/dL (12.0-15.5); MEAN CORPUSCULAR HEMOGLOBIN 28.6 pg (27.0-33.4); MEAN CORPUSCULAR VOLUME 84 fl (80-97); MONOCYTES % (AUTO) 8.2 % (3-13); PLATELET COUNT 218 10^3/uL (150-450); RED BLOOD COUNT 3.57 10^6/uL (3.72-5.28); RED CELL DISTRIBUTION WIDTH 14.1 % (11.5-14.0); SEGMENTED NEUTROPHILS % (AUTO) 72.4 % (42-78); TOTAL CELLS COUNTED % (AUTO) 100 %; WHITE BLOOD COUNT 7.2 10^3/uL (4.0-10.5)
[2018-06-09 06:28] LABS: ALANINE AMINOTRANSFERASE 39 U/L (9-52); ALBUMIN 3.5 g/dL (3.5-5.0); ALKALINE PHOSPHATASE 83 U/L (38-126); ANION GAP 9 (5-19); ASPARTATE AMINO TRANSFERASE 19 U/L (14-36); BILIRUBIN,DIRECT 0.2 mg/dL (0.0-0.4); BILIRUBIN,TOTAL 0.2 mg/dL (0.2-1.3); BLOOD UREA NITROGEN 22 mg/dL (7-20); CALCIUM 9.4 mg/dL (8.4-10.2); CARBON DIOXIDE 23 mmol/L (22-30); CHLORIDE 115 mmol/L (98-107); GLUCOSE 80 mg/dL (75-110); SODIUM 146.7 mmol/L (137-145); TOTAL PROTEIN 6.1 g/dL (6.3-8.2)
[2018-06-09] MEDS: INSULIN LISPRO 100 UNIT/ML 3 ML VIAL SUBCUT SCH (08:21)
[2018-06-09] MEDS: DOCUSATE SODIUM 100 MG CAPSULE PO SCH (09:56)
[2018-06-09] MEDS: SITAGLIPTIN PHOSPHATE 50 MG TABLET PO SCH (09:56)
[2018-06-09] MEDS: GUAIFENESIN 600 MG TABLET.SA PO SCH (09:56)
[2018-06-09] MEDS: ENOXAPARIN SODIUM INJ 40 MG/0.4 ML DISP.SYRIN SUBCUT SCH (09:56)
[2018-06-09] MEDS: AZITHROMYCIN 250 MG TABLET PO SCH (09:56)
[2018-06-09] MEDS: PAROXETINE HCL 20 MG TABLET PO SCH (09:57)
[2018-06-09] MEDS: CLOZAPINE 100 MG TABLET PO SCH (09:57)
[2018-06-09] MEDS: LITHIUM CARBONATE 450 MG TABLET.ER PO SCH (09:57)
[2018-06-09] MEDS: TRIHEXYPHENIDYL HCL 2 MG TABLET PO SCH (09:57)
[2018-06-09] MEDS: CEFTAZIDIME PENTAHYDRATE 1 GM in DEXTROSE 5%-WATER 50 ML IV SCH (10:00)
[2018-06-09 10:39] VITALS: BP 132/73
--- NOTE | 2018-06-09 11:01 | PDOC DISCHARGE SUMMARY ---
General - Admit/Disc Date/PCP Admission Date/Primary Care Provider: 06/03/18 00:14 JUAN CARLOS MALAVE MD Discharge Date: 06/09/18 - Discharge Diagnosis (1) Acute renal failure Is this a current diagnosis for this admission?: Yes Summary: Currently all resolving (2) Abdominal pain Is this a current diagnosis for this admission?: Yes Summary: Currently all resolved (3) Schizophrenia Is this a current diagnosis for this admission?: Yes Summary: Current psych medication follow outpatients psych (4) Anxiety disorder Is this a current diagnosis for this admission?: Yes Summary: All stable (5) Hypertension Is this a current diagnosis for this admission?: Yes Summary: Currently all stable (6) Dehydration Is this a current diagnosis for this admission?: Yes Summary: All resolved (7) Hyperventilation Is this a current diagnosis for this admission?: Yes Summary: All resolved (8) Metabolic acidosis Is this a current diagnosis for this admission?: Yes Summary: All resolved (9) Cough Is this a current diagnosis for this admission?: Yes Summary: Will be a mild bronchiectasis on the CT report discussed with the Dr. Ma suggest the continues the antibiotic follow outpatient (10) Urinary tract infection Is this a current diagnosis for this admission?: Yes Summary: Resolving - Additional Information Resuscitation Status: Full Code Discharge Diet: Regular Discharge Activity: Activity As Tolerated Prescriptions: Benzonatate [Tessalon Perle 100 mg Capsule] 100 mg PO Q8HP PRN #30 cap PRN Reason: Doxycycline Hyclate 100 mg PO BID #14 capsule Omeprazole 40 mg PO DAILY #30 capsule. Home Medications: Bupropion HCl [Wellbutrin Sr 150 mg Tablet] 1 tab PO Q12 06/03/18 Clozapine [Clozaril 100 mg Tablet] 100 mg PO BID 06/03/18 Docusate Sodium [Colace 100 mg Capsule] 100 mg PO DAILYP PRN 06/03/18 Levothyroxine Sodium [Synthroid 0.075 mg Tablet] 0.075 mg PO DAILY 06/03/18 Linagliptin [Tradjenta] 5 mg PO DAILY 06/03/18 [place]quillo Carbonate [Lu[place] Carbonate ER 450 mg Tablet] 450 mg PO QHS 06/03/18 Lorazepam [Ativan 1 mg Tablet] 1 mg PO TID 06/03/18 Oxybutynin Chloride [Oxybutynin Chloride ER] 10 mg PO DAILY 06/03/18 Paroxetine HCl [Paxil] 40 mg PO DAILY 06/03/18 Trihexyphenidyl HCl [Artane 2 mg Tablet] 1 mg PO BID 06/03/18 Benzonatate [Tessalon Perle 100 mg Capsule] 100 mg PO Q8HP PRN #30 cap 06/09/18 Doxycycline Hyclate 100 mg PO BID #14 capsule 06/09/18 Omeprazole 40 mg PO DAILY #30 capsule. 06/09/18 History of Present Illness History of Present Illness: NOEMI HIGGINS is a 47 year old female This is a 47-year-old female is with a significant history of the schizophrenia depression and anxiety multiple psych medications history of the chronic kidney disease with baseline creatinine is 1.[address] Miller came to the office last week with a complaining some pelvic pain and abdominal issues had a blood work done with suggest the patient LFT was elevated and patient's creatinine is elevated to 2.[address] abdomen and pelvis without contrast which did not show any abnormal finding Patient all gallbladder is already removed Patient's bilirubin is all stable Patient not feeling better came to the emergency department yesterday with a creatinine is 3.0 When I saw the patient in the ER patient sleeping but without any distressed denied any chest pain to than any shortness of the breath Patient still complains of pelvic pain Patient have a menstrual. Last week with some cramping in the abdominal area Patient other than that at this point decided to admit for possible UTI renal failure and further evaluation about this abdominal flank pain which he describes the right side more [place] level is all stable will consult the psychiatrist for further adjustment of the medications According to the ER physician patient was hyperventilated when she came patient's pH was 7.5 Hospital Course Hospital Course: This is a 46-year-old female with a significant history of as above admitting in the hospital for abdominal pain renal failure and urinary tract infections Patient is giving the IV antibiotic and IV fluid Patient also underwent for the endoscopy with so some gastroparesis Patient ultrasound of the abdomen and pelvis is all stable Patient other than that seen by Dr. Miller Patient have a CT chest was done with so some groundglass opacity questionable bronchiectasis discussed with the Dr. Ma the pulmonary and suggest the continues the antibiotic and follow outpatient Patient still responds very well with IV fluid and IV antibiotics Patient's cough is also improving Patient urinary symptoms is also improving Patient is walking the hallway without any problems Patient seen by the psychiatrist At this point patients pretty much stable and back to the normal discharge home with the p.o. antibiotics Discussed with the sister regarding the patient's current conditions Follow in a 1 week in office Follow outpatient Dr. Ma and Dr. Miller Physical Exam Vital Signs: Temp Pulse Resp BP Pulse Ox 98.2 F 82 16 132/73 H 100 06/09/18 10:38 06/09/18 10:38 06/09/18 10:38 06/09/18 10:38 06/09/18 10:38 Intake & Output 06/08/18 06/09/18 06/10/18 06:59 06:59 06:59 Intake Total 3213 2775 Output Total 2500 800 Balance 713 1975 Weight 90.7 kg 91.8 kg General appearance: PRESENT: no acute distress, well-developed, well-nourished Head exam: PRESENT: atraumatic, normocephalic Eye exam: PRESENT: conjunctiva pink, EOMI, PERRLA. ABSENT: scleral icterus Ear exam: PRESENT: normal external ear exam Mouth exam: PRESENT: moist, tongue midline Neck exam: PRESENT: full ROM. ABSENT: carotid bruit, JVD, lymphadenopathy, thyromegaly Respiratory exam: PRESENT: clear to auscultation soham Cardiovascular exam: PRESENT: RRR. ABSENT: diastolic murmur, rubs, systolic murmur Vascular exam: PRESENT: normal capillary refill GI/Abdominal exam: PRESENT: normal bowel sounds, soft. ABSENT: distended, guarding, mass, organolmegaly, rebound, tenderness Rectal exam: PRESENT: deferred Musculoskeletal exam: PRESENT: ambulatory Neurological exam: PRESENT: alert, awake, oriented to person, oriented to place, oriented to time, oriented to situation, CN II-XII grossly intact. ABSENT: motor sensory deficit Psychiatric exam: PRESENT: appropriate affect, normal mood. ABSENT: homicidal ideation, suicidal ideation Skin exam: PRESENT: dry, intact, warm. ABSENT: cyanosis, rash Results Laboratory Results: 06/09/18 04:34 06/09/18 04:34 06/09/18 06/09/18 04:34 04:34 WBC 7.2 RBC 3.57 L Hgb 10.2 L Hct 30.0 L MCV 84 MCH 28.6 MCHC 34.0 RDW 14.1 H Plt Count 218 Seg Neutrophils % 72.4 Lymphocytes % 19.0 Monocytes % 8.2 Eosinophils % 0.1 Basophils % 0.3 Absolute Neutrophils 5.2 Absolute Lymphocytes 1.4 Absolute Monocytes 0.6 Absolute Eosinophils 0.0 Absolute Basophils 0.0 Sodium 146.7 H Potassium 4.0 Chloride 115 H Carbon Dioxide 23 Anion Gap 9 BUN 22 H Creatinine 1.60 H Est GFR ( Amer) 42 L Est GFR (Non-Af Amer) 35 L Glucose 80 Calcium 9.4 Total Bilirubin 0.2 AST 19 ALT 39 Alkaline Phosphatase 83 Total Protein 6.1 L Albumin 3.5 06/02/18 20:23 Troponin I < 0.012 Impressions: Chest X-Ray 06/02/18 19:40 IMPRESSION: No acute cardiopulmonary process copyright 2011 [employer]- All Rights Reserved Abdomen Ultrasound 06/04/18 00:00 IMPRESSION: Borderline splenomegaly. No other significant findings in the abdomen. Chest CT 06/04/18 00:00 IMPRESSION: Occasional ground-glass nodules in the right lung, most likely infectious or inflammatory. No infiltrate. Transvaginal US 06/04/18 00:00 IMPRESSION: Simple appearing cyst of the right ovary. No other ultrasound abnormality of the pelvis. Qualifiers - * PATIENT BEING DISCHARGED WITH ANY OF THE FOLLOWING DIAGNOSIS: No VTE patient discharged on overlapping Therapy?: Yes Plan Time Spent: Greater than 30 Minutes - Stable conditions follow 1 week in office
--- NOTE | 2018-06-09 13:32 | PDOC CONSULTATION ---
Consultation Consult Date: 06/09/18 Attending physician:: JUAN CARLOS MALAVE Consult reason:: daytime somulence History of Present Illness Admission Date/PCP: 06/03/18 00:14 JUAN CARLOS MALAVE MD History of Present Illness: NOEMI HIGGINS is a 47 year old female, was admitted for dyspnea as well as a cough and some altered mental status she denies hemoptysis PPD status is negative dates unknown no history chronic lung disease as a child or adolescent she admits to exposure to passive smoke as a child as well as an adult she denies ever smoking himself. She has no significant occupational exposure to p otential respiratory toxins she denies pets or recent travel she denies anginal chest pain sleeps on 2 pillows no PND no nocturnal cough no edema she admits to snoring restless sleep nocturia 2-4 times per night unrestful sleep and excessive daytime somnolence Past Medical History Cardiac Medical History: Reports: Hyperlipidema, Hypertension Endocrine Medical History: Reports: Diabetes Mellitus Type 2, Hypothyroidism Renal/ Medical History: Reports: Chronic Kidney Disease GI Medical History: Reports: Gastroesophageal Reflux Disease Psychiatric Medical History: Reports: Depression, General Anxiety Disorder, Schizoaffective Disorder Traumatic Medical History: Denies: Gunshot Wound, Stab Wound Hematology: Denies: Sickle Cell Disease Past Surgical History Past Surgical History: Reports: Cholecystectomy Social History Information Source: Patient, [facility] Records Smoking Status: Never Smoker Passive smoke exposure as: Both Frequency of Alcohol Use: None Hx Recreational Drug Use: No Drugs: None Hx Prescription Drug Abuse: No Do you have pets?: No Have you had any respiratory illnesses as a child?: No Have you been exposed to any sick contacts recently?: No Have you had any recent respiratory illnesses?: No Have you travelled outside of [place] in the past 12 months?: No - Advance Directive Resuscitation Status: Full Code Family History Parental Family History Reviewed: No Children Family History Reviewed: No Sibling(s) Family History Reviewed.: No Medication/Allergy Home Medications: Bupropion HCl [Wellbutrin Sr 150 mg Tablet] 1 tab PO Q12 06/03/18 Clozapine [Clozaril 100 mg Tablet] 100 mg PO BID 06/03/18 Docusate Sodium [Colace 100 mg Capsule] 100 mg PO DAILYP PRN 06/03/18 Levothyroxine Sodium [Synthroid 0.075 mg Tablet] 0.075 mg PO DAILY 06/03/18 Linagliptin [Tradjenta] 5 mg PO DAILY 06/03/18 Mazon Carbonate [Mazon Carbonate ER 450 mg Tablet] 450 mg PO QHS 06/03/18 Lorazepam [Ativan 1 mg Tablet] 1 mg PO TID 06/03/18 Oxybutynin Chloride [Oxybutynin Chloride ER] 10 mg PO DAILY 06/03/18 Paroxetine HCl [Paxil] 40 mg PO DAILY 06/03/18 Trihexyphenidyl HCl [Artane 2 mg Tablet] 1 mg PO BID 06/03/18 Benzonatate [Tessalon Perle 100 mg Capsule] 100 mg PO Q8HP PRN #30 cap 06/09/18 Doxycycline Hyclate 100 mg PO BID #14 capsule 06/09/18 Omeprazole 40 mg PO DAILY #30 capsule. 06/09/18 Allergies/Adverse Reactions: No Known Allergies Allergy (Unverified 06/03/18 09:44) Review of Systems All systems: reviewed and no additional remarkable complaints except as stated Physical Exam Vital Signs: Temp Pulse Resp BP Pulse Ox 98.2 F 82 16 132/73 H 100 06/09/18 10:38 06/09/18 10:38 06/09/18 10:38 06/09/18 10:38 06/09/18 10:38 Intake & Output 06/08/18 06/09/18 06/10/18 06:59 06:59 06:59 Intake Total 3213 2775 Output Total 2500 800 Balance 713 1975 Weight 90.7 kg 91.8 kg General appearance: PRESENT: no acute distress, cooperative, disheveled, well- developed, well-nourished Head exam: PRESENT: atraumatic, normocephalic Eye exam: PRESENT: conjunctiva pale, EOMI. ABSENT: nystagmus, periorbital swelling, scleral icterus Mouth exam: PRESENT: dry mucosa, neck supple, tongue midline Neck exam: ABSENT: carotid bruit, full ROM, JVD, lymphadenopathy, meningismus, tenderness, thyromegaly, tracheal deviation, tracheostomy, other Respiratory exam: PRESENT: decreased breath sounds, prolonged expiratory phas, rhonchi, symmetrical, unlabored. ABSENT: rales, retraction, stridor, tachypnea, wheezes Cardiovascular exam: PRESENT: RRR, +S1, +S2. ABSENT: tachycardia Pulses: PRESENT: normal radial pulses GI/Abdominal exam: PRESENT: soft. ABSENT: tenderness Extremities exam: ABSENT: calf tenderness, clubbing, joint swelling, pedal edema Musculoskeletal exam: PRESENT: ambulatory. ABSENT: deformity, dislocation Neurological exam: PRESENT: altered, awake Psychiatric exam: PRESENT: flat affect Skin exam: PRESENT: dry, warm Results Laboratory Results: 06/09/18 04:34 06/09/18 04:34 06/09/18 06/09/18 04:34 04:34 WBC 7.2 RBC 3.57 L Hgb 10.2 L Hct 30.0 L MCV 84 MCH 28.6 MCHC 34.0 RDW 14.1 H Plt Count 218 Seg Neutrophils % 72.4 Lymphocytes % 19.0 Monocytes % 8.2 Eosinophils % 0.1 Basophils % 0.3 Absolute Neutrophils 5.2 Absolute Lymphocytes 1.4 Absolute Monocytes 0.6 Absolute Eosinophils 0.0 Absolute Basophils 0.0 Sodium 146.7 H Potassium 4.0 Chloride 115 H Carbon Dioxide 23 Anion Gap 9 BUN 22 H Creatinine 1.60 H Est GFR ( Amer) 42 L Est GFR (Non-Af Amer) 35 L Glucose 80 Calcium 9.4 Total Bilirubin 0.2 AST 19 ALT 39 Alkaline Phosphatase 83 Total Protein 6.1 L Albumin 3.5 06/02/18 20:23 Troponin I < 0.012 Impressions: Chest X-Ray 06/02/18 19:40 IMPRESSION: No acute cardiopulmonary process copyright 2011 [employer]- All Rights Reserved Abdomen Ultrasound 06/04/18 00:00 IMPRESSION: Borderline splenomegaly. No other significant findings in the abdomen. Chest CT 06/04/18 00:00 IMPRESSION: Occasional ground-glass nodules in the right lung, most likely infectious or inflammatory. No infiltrate. Transvaginal US 06/04/18 00:00 IMPRESSION: Simple appearing cyst of the right ovary. No other ultrasound abnormality of the pelvis. Assessment & Plan - Diagnosis (1) Uncontrolled daytime somnolence Is this a current diagnosis for this admission?: Yes Plan: Schedule sleep study at the time of discharge (2) Cough Is this a current diagnosis for this admission?: Yes Plan: Just a modified barium swallow she does note some dysphasia (3) Hypertension Qualifiers: Hypertension type: essential hypertension Qualified Code(s): I10 - Essential (primary) hypertension Is this a current diagnosis for this admission?: Yes Plan: Stable at this time (4) Schizophrenia Qualifiers: Schizophrenia type: unspecified Qualified Code(s): F20.9 - Schizophrenia, unspecified Is this a current diagnosis for this admission?: Yes Plan: Continue current medicines
[2018-06-10 07:35] LABS: BORDETELLA PERTUSSIS IGA AB <1.0 index (0.0-0.9)
== END 2018-06-09 11:17 | disposition home or self-care (01) | DRG 683 ==
LOC: ER 15:11 → EH 06-03 00:14 → 5 06-03 13:43
PROVIDERS: ADMIT Family Medicine; ATTEND Family Medicine
PROC: 0DD68ZX Extraction of Stomach, Via Natural or Artificial Opening Endoscopic, Diagnostic (ICD-10-PCS; principal; 2018-06-04 10:30)
DX: N17.9 Acute kidney failure, unspecified (principal); N39.0 Urinary tract infection, site not specified; E87.3 Alkalosis; E87.2 Acidosis; E86.0 Dehydration; K21.9 Gastro-esophageal reflux disease without esophagitis; E11.22 Type 2 diabetes mellitus with diabetic chronic kidney disease; I12.9 Hypertensive chronic kidney disease with stage 1 through stage 4 chronic kidney disease, or unspecified chronic kidney disease; E03.9 Hypothyroidism, unspecified; N18.3 Chronic kidney disease, stage 3 (moderate); R11.2 Nausea with vomiting, unspecified; F20.9 Schizophrenia, unspecified; F41.1 Generalized anxiety disorder; R10.30 Lower abdominal pain, unspecified; B96.20 Unspecified Escherichia coli [E. coli] as the cause of diseases classified elsewhere; R06.4 Hyperventilation; K31.84 Gastroparesis
CPT/HCPCS: 36415; 43239; 71046; 71250; 731; 76700; 76830; 80048; 80053; 80076; 80178; 80307; 81001; 82607; 82728; 82746; 82803; 82962; 83540; 83550; 83605; 84484; 84703; 85025; 85045; 85610; 86615; 87040; 87086; 87088; 87186; 88305; 88342; 93005; 93010; 93976; 96361; 96374; 96375; 99291; J0696; J0713; J1650; J1815; J2270; J2405; J2704; J3480; J3490; J7030; J7512; J7620; S0028; S0164

== ENCOUNTER 2018-09-11 14:22 | Emergency (ER) | payer MEDICARE, MEDICAID ==
[2018-09-11] MEDS ORDERED: NORMAL SALINE 1000 ML 1,000 ML IV ONE (14:39)
[2018-09-11] MEDS ORDERED: ONDANSETRON HCL INJ/PF 4 MG/2 ML SDV IV ONE (14:39)
--- NOTE | 2018-09-11 14:39 | ER Document Report ---
ED Medical Screen (RME) - General Chief Complaint: Back Pain Stated Complaint: FLANK PAIN Time Seen by Provider: 09/11/18 14:34 Primary Care Provider: JUAN CARLOS MALAVE MD [Primary Care Provider] - Follow up as needed TRAVEL OUTSIDE OF THE [place] IN LAST 30 DAYS: No - HPI Notes: 09/11/18 14:40 Patient is a 48-year-old female with a history of schizophrenia, hypertension, type 2 diabetes who presents complaining of intermittent upper abdominal pain, low back pain, decreased urinary output with associated nausea and vomiting, and occ dizziness when she stands over the past 2 days. Her last episode of emesis was this morning. She is otherwise having normal bowel movements. No other vaginal discharge, odor, or bleeding. She was admitted to the hospital a few months ago for renal failure metabolic acidosis. She is not on dialysis. Denies CONTRERAS, fever, neck pain, URI, CP, SOB, dysuria, or rash. I have treated and performed a rapid initial assessment of this patient. A co mprehensive ED assessment and evaluation of the patient, analysis of test results and completion of medical decision making process will be conducted by additional ED providers. PHYSICAL EXAMINATION: GENERAL: Well-appearing, well-nourished and in no acute distress. A&Ox4. Answers questions appropriately. LUNGS: Breath sounds clear to auscultation bilaterally and equal. No wheezes rales or rhonchi. HEART: Regular rate and rhythm without murmurs, rubs, gallops. ABDOMEN: Soft, nondistended abdomen. No guarding, no rebound. Normal bowel sounds present. No CVA tenderness bilaterally. + mild epigastric tenderness (cannot elicit thorough abd exam w/o bed, however). - Related Data Allergies/Adverse Reactions: No Known Allergies Allergy (Verified 09/11/18 14:23) Past Medical History - Past Medical History Cardiac Medical History: Reports: Hx Hypercholesterolemia, Hx Hypertension Endocrine Medical History: Reports: Hx Diabetes Mellitus Type 2, Hx Hypothyroidism Renal/ Medical History: Denies: Hx Peritoneal Dialysis GI Medical History: Reports: Hx Gastroesophageal Reflux Disease Psychiatric Medical History: Reports: Hx Depression, Hx Schizoaffective Disorder, Hx Schizophrenia Traumatic Medical History: Denies: Hx Gunshot Wound Past Surgical History: Reports: Hx Cholecystectomy Physical Exam - Vital signs Vitals: Temp Pulse Resp BP Pulse Ox 98.6 F 108 H 16 154/96 H 97 09/11/18 14:26 09/11/18 14:26 09/11/18 14:26 09/11/18 14:26 09/11/18 14:26 Course - Vital Signs Vital signs: Temp Pulse Resp BP Pulse Ox 98.6 F 108 H 16 154/96 H 97 09/11/18 14:26 09/11/18 14:26 09/11/18 14:26 09/11/18 14:26 09/11/18 14:26 Doctor's Discharge - Discharge Referrals: JUAN CARLOS MALAVE MD [Primary Care Provider] - Follow up as needed
[2018-09-11 15:22] LABS: ABSOLUTE LYMPHOCYTES (AUTO) 0.7 10^3/uL (0.5-4.7); ABSOLUTE MONOCYTES (AUTO) 0.7 10^3/uL (0.1-1.4); ABSOLUTE NEUT (AUTO) 5.4 10^3/uL (1.7-8.2); BASOPHILS % (AUTO) 0.2 % (0-2); HEMATOCRIT 34.2 % (36.0-47.0); HEMOGLOBIN 11.2 g/dL (12.0-15.5); LYMPHOCYTES % (AUTO) 10.8 % (13-45); MEAN CORPUSCULAR HEMOGLOBIN 27.7 pg (27.0-33.4); MEAN CORPUSCULAR HGB CONC 32.7 g/dL (32.0-36.0); MEAN CORPUSCULAR VOLUME 85 fl (80-97); MONOCYTES % (AUTO) 10.1 % (3-13); PLATELET COUNT 152 10^3/uL (150-450); RED BLOOD COUNT 4.03 10^6/uL (3.72-5.28); RED CELL DISTRIBUTION WIDTH 13.4 % (11.5-14.0); SEGMENTED NEUTROPHILS % (AUTO) 78.9 % (42-78); TOTAL CELLS COUNTED % (AUTO) 100 %; WHITE BLOOD COUNT 6.8 10^3/uL (4.0-10.5)
[2018-09-11 15:40] LABS: ALANINE AMINOTRANSFERASE 22 U/L (9-52); ALBUMIN 3.9 g/dL (3.5-5.0); ALKALINE PHOSPHATASE 89 U/L (38-126); ANION GAP 13 (5-19); ASPARTATE AMINO TRANSFERASE 15 U/L (14-36); BILIRUBIN,DIRECT 0.2 mg/dL (0.0-0.4); BILIRUBIN,TOTAL 0.3 mg/dL (0.2-1.3); BLOOD UREA NITROGEN 19 mg/dL (7-20); CALCIUM 9.3 mg/dL (8.4-10.2); CARBON DIOXIDE 26 mmol/L (22-30); CHLORIDE 103 mmol/L (98-107); GLUCOSE 284 mg/dL (75-110); LIPASE 51.5 U/L (23-300); SODIUM 141.5 mmol/L (137-145); TOTAL PROTEIN 6.8 g/dL (6.3-8.2)
--- NOTE | 2018-09-11 16:14 | ER Document Report ---
ED General - General Chief Complaint: Back Pain Stated Complaint: FLANK PAIN Time Seen by Provider: 09/11/18 14:34 Primary Care Provider: JUAN CARLOS MALAVE MD [Primary Care Provider] - Follow up in 3-5 days Notes: Patient is a 48-year-old female that presents to the emergency department for chief complaint of abdominal pain and constipation. Patient reports she has been bloated over the past 2 weeks, complaining of pain on both sides of her abdomen, she has not had a good bowel movement in approximately 2 weeks, she tried taking Colace and Senokot without much improvement she also try to take Dulcolax. She had some nausea and one episode of vomiting. She currently rates her pain as a 3 out of 10 describes it as an ache across most of her abdomen. She states she has been able to pass gas, but not had a good bowel movement. She has not not been able to keep as much down because of her pain. Past Medical History: Schizophrenia Past Surgical History: Cholecystectomy Social History: Denies current tobacco, alcohol or drug use. Family History: Reviewed and noncontributory for presenting illness Allergies: Reviewed, see documented allergy list. REVIEW OF SYSTEMS: Other than noted above, the 12 point review of systems was reviewed with the patient and were negative, all pertinent findings are included in the HPI. PHYSICAL EXAMINATION: Vital signs reviewed, nursing noted reviewed. GENERAL: Obese female, no acute distress HEAD: Atraumatic, normocephalic. EYES: Eyes appear normal, extraocular movements intact, sclera anicteric, conjunctiva are normal. ENT: nares patent, oropharynx clear without exudates. Moist mucous membranes. NECK: Normal range of motion, supple without lymphadenopathy LUNGS: Breath sounds clear to auscultation bilaterally and equal. No wheezes rales or rhonchi. HEART: Regular rate and rhythm without murmurs ABDOMEN: Soft, mild diffuse discomfort with palpation, no distention, normoactive bowel sounds. No rebound, guarding, or rigidity. No masses appreciated. EXTREMITIES: Nontender, good range of motion, no pitting or edema. NEUROLOGICAL: No focal neurological deficits. Moves all extremities spontaneously Motor and sensory grossly intact on exam. PSYCH: Normal mood, normal affect. SKIN: Warm, Dry, normal turgor, no rashes or lesions noted on exposed skin TRAVEL OUTSIDE OF THE [place] IN LAST 30 DAYS: No - Related Data Allergies/Adverse Reactions: No Known Allergies Allergy (Verified 09/11/18 14:23) Past Medical History - Social History Smoking Status: Never Smoker Frequency of alcohol use: None Drug Abuse: None Family History: Reviewed & Not Pertinent Patient has suicidal ideation: No Patient has homicidal ideation: No - Past Medical History Cardiac Medical History: Reports: Hx Hypercholesterolemia, Hx Hypertension Endocrine Medical History: Reports: Hx Diabetes Mellitus Type 2, Hx Hypothyroidism Renal/ Medical History: Denies: Hx Peritoneal Dialysis GI Medical History: Reports: Hx Gastroesophageal Reflux Disease Psychiatric Medical History: Reports: Hx Depression, Hx Schizoaffective Disorder, Hx Schizophrenia Traumatic Medical History: Denies: Hx Gunshot Wound Past Surgical History: Reports: Hx Cholecystectomy Physical Exam - Vital signs Vitals: Temp Pulse Resp BP Pulse Ox 98.6 F 108 H 16 154/96 H 97 09/11/18 14:26 09/11/18 14:26 09/11/18 14:26 09/11/18 14:26 09/11/18 14:26 Course - Re-evaluation Re-evalutation: Patient seen and examined vital signs reviewed. Laboratory data and/or imaging were ordered as appropriate for the patient's presenting symptoms and complaint, with consideration of any critical or life threatening conditions that may be associated with their obtained history and exam as noted above. Patient was treated with magnesium citrate, given IV fluids and Zofran Results were reviewed when available and demonstrated unremarkable blood work, negative urinalysis The patient was re-evaluated and was stable, patient did not have a bowel movement in the ED, she was offered an enema, but states she just wanted to leave, her discharge paperwork was printed, she was given a prescription for MiraLAX, however prior to receiving paperwork, the patient eloped from the emergency department. Evaluation was most consistent with constipation *Note is created using voice recognition software and may contain spelling, syntax or grammatical errors. Laboratory 09/11/18 09/11/18 09/11/18 15:00 15:00 16:40 WBC 6.8 RBC 4.03 Hgb 11.2 L Hct 34.2 L MCV 85 MCH 27.7 MCHC 32.7 RDW 13.4 Plt Count 152 Seg Neutrophils % 78.9 H Lymphocytes % 10.8 L Monocytes % 10.1 Eosinophils % 0.0 Basophils % 0.2 Absolute Neutrophils 5.4 Absolute Lymphocytes 0.7 Absolute Monocytes 0.7 Absolute Eosinophils 0.0 Absolute Basophils 0.0 Sodium 141.5 Potassium 4.0 Chloride 103 Carbon Dioxide 26 Anion Gap 13 BUN 19 Creatinine 1.45 H Est GFR ( Amer) 47 L Est GFR (Non-Af Amer) 39 L Glucose 284 H Calcium 9.3 Magnesium 1.9 Total Bilirubin 0.3 Direct Bilirubin 0.2 Neonat Total Bilirubin Not Reportable Neonat Direct Bilirubin Not Reportable Neonat Indirect Bili Not Reportable AST 15 ALT 22 Alkaline Phosphatase 89 Total Protein 6.8 Albumin 3.9 Lipase 51.5 Urine Color YELLOW Urine Appearance CLOUDY Urine pH 5.0 Ur Specific [place] 1.019 Urine Protein 30 H Urine Glucose (UA) NEGATIVE Urine Ketones NEGATIVE Urine Blood MODERATE H Urine Nitrite NEGATIVE Urine Bilirubin NEGATIVE Urine Urobilinogen NEGATIVE Ur Leukocyte Esterase TRACE H Urine WBC (Auto) 4 Urine RBC (Auto) 1 U Hyaline Cast (Auto) 6 Urine Bacteria (Auto) TRACE Squamous Epi Cells Auto 9 Urine Mucus (Auto) OCC Urine Ascorbic Acid NEGATIVE Urine HCG, Qual NEGATIVE - Vital Signs Vital signs: Temp Pulse Resp BP Pulse Ox 98.6 F 90 16 141/79 H 97 09/11/18 14:26 09/11/18 16:43 09/11/18 14:26 09/11/18 16:43 09/11/18 14:26 - Laboratory Result Diagrams: 09/11/18 15:00 09/11/18 15:00 Laboratory results interpreted by me: 09/11/18 09/11/18 09/11/18 15:00 15:00 16:40 Hgb 11.2 L Hct 34.2 L Seg Neutrophils % 78.9 H Lymphocytes % 10.8 L Creatinine 1.45 H Est GFR ( Amer) 47 L Est GFR (Non-Af Amer) 39 L Glucose 284 H Urine Protein 30 H Urine Blood MODERATE H Ur Leukocyte Esterase TRACE H Discharge - Discharge Clinical Impression: Constipation Qualifiers: Constipation type: unspecified constipation type Qualified Code(s): K59.00 - Constipation, unspecified Condition: Stable Disposition: ELOPED Instructions: Constipation ([facility]) Additional Instructions: Please start taking MiraLAX 1 capful twice daily, and additionally can purchase [id number] magnesium citrate and take that once daily as well. To help with her constipation. Prescriptions: Polyethylene Glycol 3350 [Miralax] 17 gm PO BID #[id number] powder Referrals: JUAN CARLOS MALAVE MD [Primary Care Provider] - Follow up in 3-5 days
[2018-09-11] MEDS ORDERED: MAGNESIUM CITRATE 296 ML BOTTLE PO ONE (16:25)
[2018-09-11 16:48] VITALS: BP 141/79
[2018-09-11 17:39] LABS: APPEARANCE,URINE CLOUDY; BILIRUBIN,URINE NEGATIVE (NEGATIVE); COLOR,URINE YELLOW; GLUCOSE, URINE NEGATIVE (NEGATIVE); KETONES,URINE NEGATIVE (NEGATIVE); LEUKOCYTE ESTERASE,URINE TRACE (NEGATIVE); NITRITE,URINE NEGATIVE (NEGATIVE); PROTEIN,URINE 30 mg/dL (NEGATIVE); URINE SPECIFIC GRAVITY 1.019; UROBILINOGEN,URINE NEGATIVE mg/dL (<2.0)
== END 2018-09-11 20:00 | disposition left against medical advice (07) ==
LOC: ER 14:22
DX: K59.00 Constipation, unspecified (principal); M54.9 Dorsalgia, unspecified; R10.9 Unspecified abdominal pain; E78.00 Pure hypercholesterolemia, unspecified; I10 Essential (primary) hypertension; E11.9 Type 2 diabetes mellitus without complications; Z90.49 Acquired absence of other specified parts of digestive tract
CPT/HCPCS: 99281; 96361; 96374; 36415; 83690; 83735; 85025; 81025; 80053; 81001; J3490; J2405; J7030

== ENCOUNTER 2018-09-14 15:38 | Emergency (ER) | payer MEDICARE, MEDICAID ==
[2018-09-14] MEDS ORDERED: ACETAMINOPHEN 325 MG TABLET PO ONE (16:09)
--- NOTE | 2018-09-14 16:43 | ER Document Report ---
HPI - HPI Patient complains to provider of: sore throat Time Seen by Provider: 09/14/18 16:08 Onset: Yesterday Onset/Duration: Persistent, Worse Severity: Severe Pain Level: 5 Context: Patient presents emergency department with complaints of sore throat difficulty swallowing that started yesterday. Denies fever vomiting diarrhea but reports fever when she arrived here. Patient is spitting into a cup. Reports that she can hardly breathe and cannot swallow. Patient has a gravelly voice. I noted patient was here 2 days ago for different complaint so I had two nurses step in that had cared for her the other day and talk with the patient and they both confirmed that this is the patient's voice from 2 days ago. Associated Symptoms: None Exacerbated by: Food Relieved by: Denies Similar symptoms previously: No Recently seen / treated by doctor: Yes - CONSTITUTIONAL Constitutional: REPORTS: Fever. DENIES: Chills - EENT EENT: REPORTS: Sore Throat - REPRODUCTIVE Reproductive: DENIES: : Past Medical History - General Information source: Patient - Social History Smoking Status: Never Smoker Frequency of alcohol use: None Drug Abuse: None Family History: Reviewed & Not Pertinent Patient has suicidal ideation: No Patient has homicidal ideation: No - Past Medical History Cardiac Medical History: Reports: Hx Hypercholesterolemia, Hx Hypertension Endocrine Medical History: Reports: Hx Diabetes Mellitus Type 2, Hx Hypothyroidism Renal/ Medical History: Denies: Hx Peritoneal Dialysis GI Medical History: Reports: Hx Gastroesophageal Reflux Disease Psychiatric Medical History: Reports: Hx Depression, Hx Schizoaffective Disorder, Hx Schizophrenia Traumatic Medical History: Denies: Hx Gunshot Wound Past Surgical History: Reports: Hx Cholecystectomy Vertical Provider Document - CONSTITUTIONAL Agree With Documented VS: Yes Exam Limitations: No Limitations General Appearance: WD/WN, No Apparent Distress - INFECTION CONTROL TRAVEL OUTSIDE OF THE [place] IN LAST 30 DAYS: No - HEENT HEENT: Atraumatic, Normocephalic, Pharyngeal Exudate, Pharyngeal Erythema. negative: Conjuctival Injection - NECK Neck: Normal Inspection, Supple. negative: Lymphadenopathy-Left, Lymphadenopathy-Right - RESPIRATORY Respiratory: Breath Sounds Normal, No Respiratory Distress - CARDIOVASCULAR Cardiovascular: Regular Rhythm - MUSCULOSKELETAL/EXTREMETIES Musculoskeletal/Extremeties: MAEW, FROM - NEURO Level of Consciousness: Awake, Alert, Appropriate Motor/Sensory: No Motor Deficit - DERM Integumentary: Warm, Dry Course - Re-evaluation Re-evalutation: 09/14/18 17:16 Patient was able to swallow the Tylenol. Patient is drinking p.o. fluids. - Vital Signs Vital signs: Temp Pulse Resp BP Pulse Ox 101.8 F H 102 H 18 117/88 H 97 09/14/18 15:48 09/14/18 15:48 09/14/18 15:48 09/14/18 15:48 09/14/18 15:48 Discharge - Discharge Referrals: JUAN CARLOS MALAVE MD [Primary Care Provider] - Follow up as needed
--- NOTE | 2018-09-14 17:22 | RADIOLOGY REPORT (SQ) ---
EXAM DESCRIPTION: SOFT TISSUE NECK COMPLETED DATE/TIME: 09/14/2018 4:46 pm REASON FOR STUDY: sore throat, reports difficulty swallowing COMPARISON: None. NUMBER OF VIEWS: Two views. TECHNIQUE: AP and lateral radiographic image of the soft tissues of the neck. LIMITATIONS: None. FINDINGS: EPIGLOTTIS: There is mild thickening of the epiglottis. PREVERTEBRAL SOFT TISSUES: No soft tissue swelling. SUBGLOTTIC AREA: No narrowing. RETROPHARYNGEAL SPACE: No significant thickening noted. BONES: Incidental is made of bilateral elongated transverse processes at C7. Degenerative disc disea se with anterior osteophytosis at C5-C6. LUNG APICES: Clear. OTHER: No radiopaque foreign body is identified. IMPRESSION: Mild thickening of the epiglottis, may be artifactual due to patient's positioning versu s acute epiglottitis. Clinical correlation recommended. TECHNICAL DOCUMENTATION: JOB ID: [id number] 2010 [employer]- All Rights Reserved Reading location - IP/workstation name: [email or web address]
--- NOTE | 2018-09-14 18:05 | ER Document Report ---
ED Medical Screen (RME) - General Chief Complaint: Sore Throat Stated Complaint: SORE THROAT Time Seen by Provider: 09/14/18 16:08 Primary Care Provider: JUAN CARLOS MALAVE MD [Primary Care Provider] - Follow up as needed Mode of Arrival: Ambulatory Information source: Patient Notes: Patient presents emergency department with complaints of sore throat difficulty swallowing that started yesterday. Denies fever vomiting diarrhea but reports fever when she arrived here. Patient is spitting into a cup. Reports that she can hardly breathe and cannot swallow. Patient has a gravelly voice. I noted patient was here 2 days ago for different complaint so I had two nurses step in that had cared for her the other day and talk with the patient and they both confirmed that this is the patient's voice from 2 days ago. Plain x-ray shows possible epiglottitis so CT soft tissue ordered. Patient was drinking p.o. fluids without problem. Reports made her throat feel better. I have greeted and performed a rapid initial assessment of this patient. A comprehensive ED assessment and evaluation of the patient, analysis of test results and completion of the medical decision making process will be conducted by additional ED providers. Dictation of this chart was performed using voice recognition software; therefore, there may be some unintended grammatical errors. TRAVEL OUTSIDE OF THE [place] IN LAST 30 DAYS: No - Related Data Allergies/Adverse Reactions: No Known Allergies Allergy (Verified 09/11/18 14:23) Past Medical History - Social History Frequency of alcohol use: None Drug Abuse: None - Past Medical History Cardiac Medical History: Reports: Hx Hypercholesterolemia, Hx Hypertension Endocrine Medical History: Reports: Hx Diabetes Mellitus Type 2, Hx Hypothyroidism Renal/ Medical History: Denies: Hx Peritoneal Dialysis GI Medical History: Reports: Hx Gastroesophageal Reflux Disease Psychiatric Medical History: Reports: Hx Depression, Hx Schizoaffective Disorder, Hx Schizophrenia Traumatic Medical History: Denies: Hx Gunshot Wound Past Surgical History: Reports: Hx Cholecystectomy Physical Exam - Vital signs Vitals: Temp Pulse Resp BP Pulse Ox 101.8 F H 102 H 18 117/88 H 97 09/14/18 15:48 09/14/18 15:48 09/14/18 15:48 09/14/18 15:48 09/14/18 15:48 Course - Vital Signs Vital signs: Temp Pulse Resp BP Pulse Ox 101.8 F H 102 H 18 117/88 H 97 09/14/18 15:48 09/14/18 15:48 09/14/18 15:48 09/14/18 15:48 09/14/18 15:48 Doctor's Discharge - Discharge Referrals: JUAN CARLOS MALAVE MD [Primary Care Provider] - Follow up as needed
[2018-09-14 18:22] LABS: ABSOLUTE LYMPHOCYTES (AUTO) 0.5 10^3/uL (0.5-4.7); ABSOLUTE MONOCYTES (AUTO) 0.7 10^3/uL (0.1-1.4); BASOPHILS % (AUTO) 0.3 % (0-2); HEMATOCRIT 31.5 % (36.0-47.0); HEMOGLOBIN 10.5 g/dL (12.0-15.5); MEAN CORPUSCULAR HEMOGLOBIN 27.5 pg (27.0-33.4); MEAN CORPUSCULAR HGB CONC 33.3 g/dL (32.0-36.0); MEAN CORPUSCULAR VOLUME 83 fl (80-97); MONOCYTES % (AUTO) 13.2 % (3-13); PLATELET COUNT 150 10^3/uL (150-450); RED BLOOD COUNT 3.82 10^6/uL (3.72-5.28); RED CELL DISTRIBUTION WIDTH 13.1 % (11.5-14.0); SEGMENTED NEUTROPHILS % (AUTO) 76.5 % (42-78); TOTAL CELLS COUNTED % (AUTO) 100 %; WHITE BLOOD COUNT 5.2 10^3/uL (4.0-10.5)
[2018-09-14 18:40] LABS: ALANINE AMINOTRANSFERASE 31 U/L (9-52); ALBUMIN 3.7 g/dL (3.5-5.0); ALKALINE PHOSPHATASE 103 U/L (38-126); ANION GAP 13 (5-19); ASPARTATE AMINO TRANSFERASE 26 U/L (14-36); BILIRUBIN,DIRECT 0.4 mg/dL (0.0-0.4); BILIRUBIN,TOTAL 0.4 mg/dL (0.2-1.3); BLOOD UREA NITROGEN 20 mg/dL (7-20); CALCIUM 8.6 mg/dL (8.4-10.2); CARBON DIOXIDE 23 mmol/L (22-30); CHLORIDE 106 mmol/L (98-107); GLUCOSE 166 mg/dL (75-110); POTASSIUM 3.7 mmol/L (3.6-5.0); SODIUM 141.5 mmol/L (137-145); TOTAL PROTEIN 6.2 g/dL (6.3-8.2)
--- NOTE | 2018-09-14 19:14 | ER Document Report ---
ED General - General Chief Complaint: Sore Throat Stated Complaint: SORE THROAT Time Seen by Provider: 09/14/18 16:08 Primary Care Provider: JUAN CARLOS MALAVE MD [Primary Care Provider] - Follow up in 3-5 days Man QUEVEDO MD [ACTIVE STAFF] - Follow up in 3-5 days Mode of Arrival: Ambulatory Notes: Patient is a 48-year-old female who presents emergency department with a sore throat. She states that it is hard for her to swallow. She states that her symptoms started yesterday. She denies any fever, but she has a fever here. Denies any nausea, vomiting, or diarrhea. She states that there is some difficulty breathing. Plain films were taken in super track and there was possible epiglottitis noted on x-ray. TRAVEL OUTSIDE OF THE [place] IN LAST 30 DAYS: No - Related Data Allergies/Adverse Reactions: No Known Allergies Allergy (Verified 09/11/18 14:23) Past Medical History - General Information source: Patient - Social History Smoking Status: Never Smoker Frequency of alcohol use: None Drug Abuse: None Family History: Reviewed & Not Pertinent Patient has suicidal ideation: No Patient has homicidal ideation: No - Past Medical History Cardiac Medical History: Reports: Hx Hypercholesterolemia, Hx Hypertension Endocrine Medical History: Reports: Hx Diabetes Mellitus Type 2, Hx Hypothyroidism Renal/ Medical History: Denies: Hx Peritoneal Dialysis GI Medical History: Reports: Hx Gastroesophageal Reflux Disease Psychiatric Medical History: Reports: Hx Depression, Hx Schizoaffective Disorder, Hx Schizophrenia Traumatic Medical History: Denies: Hx Gunshot Wound Past Surgical History: Reports: Hx Cholecystectomy Review of Systems - Review of Systems Notes: REVIEW OF SYSTEMS: CONSTITUTIONAL : Denies recent illness. Denies recent unintentional weight loss. Denies fever, chills, or sweats. EENT: See HPI CARDIOVASCULAR: Denies chest pain. RESPIRATORY: See HPI GASTROINTESTINAL: Denies nausea, vomiting, and diarrhea. Denies abdominal pain. Denies constipation. GENITOURINARY: Denies difficulty urinating, burning, blood in urine, urgency or frequency. MUSCULOSKELETAL: Denies neck and back pain. Denies joint pain or swelling. SKIN: Denies rash, itchiness, or lesions HEMATOLOGIC : Denies easy bruising or bleeding. LYMPHATIC: Denies swollen, painful, enlarged glands. NEUROLOGICAL: Denies no numbness or tingling denies weakness. Denies headache. Denies altered mental status. Denies alteration in speech. PSYCHIATRIC: Denies stress, anxiety, alteration in sleep patterns, or depression. All other systems reviewed and negative. Physical Exam - Vital signs Vitals: Temp Pulse Resp BP Pulse Ox 101.8 F H 102 H 18 117/88 H 97 09/14/18 15:48 09/14/18 15:48 09/14/18 15:48 09/14/18 15:48 09/14/18 15:48 - Notes Notes: PHYSICAL EXAMINATION: GENERAL: Appears well, healthy, well-nourished, no acute distress. HEAD: Normocephalic, atraumatic. EYES: PERRL, conjunctiva normal, all extraocular movements intact, sclera nonicteric ENT: Moist mucous membranes. Edema noted to bilateral tonsils. Bilateral anterior cervical lymphadenopathy. Patent airway. Uvula midline. NECK: Supple, no noticeable swelling, redness, rash. Normal range of motion. LUNGS: Equal breath sounds bilaterally and clear to auscultation. No wheezes rales or rhonchi. CARDIOVASCULAR: S1-S2, regular rate, regular rhythm. Radial pulses 2+, normal. ABDOMEN: Normoactive bowel sounds. Soft, nontender, no guarding, no rebound tenderness, and no masses palpated. EXTREMITIES: Normal strength and range of motion, no pitting or edema. No cyanosis. NEUROLOGICAL: Moves all extremities upon command. Strength 5/5 in all extremities. PSYCH: Normal mood, normal affect. SKIN: Warm, dry. No rash, lesions, ulcerations noted. Normal skin turgor. Course - Re-evaluation Re-evalutation: 09/14/18 20:[address] of her neck does not show epiglottitis, which was a concern on her neck x-ray. She does have tonsillitis. I will start her on amoxicillin. She will follow-up with her primary care provider in regards to this visit. I have also informed her that she needs to follow-up with her professor of geology in regards to this visit, as her kidney function is not terribly bad, but it is elevated from her last visit. She is in agreement with this plan. I do not suspect the patient has any life-threatening etiology at this time. - Vital Signs Vital signs: Temp Pulse Resp BP Pulse Ox 99.0 F 93 18 139/89 H 100 06/02/19 20:51 09/14/18 20:51 09/14/18 20:51 09/14/18 20:51 09/14/18 20:51 - Laboratory Result Diagrams: 09/14/18 18:06 09/14/18 18:06 Laboratory results interpreted by me: 09/14/18 09/14/18 18:06 18:06 Hgb 10.5 L Hct 31.5 L Lymphocytes % 10.0 L Monocytes % 13.2 H Creatinine 1.78 H Est GFR ( Amer) 37 L Est GFR (Non-Af Amer) 31 L Glucose 166 H Total Protein 6.2 L Discharge - Discharge Clinical Impression: Tonsillitis, Sore throat Condition: Stable Disposition: HOME, SELF-CARE Instructions: Amoxicillin ([facility]), Tonsillitis ([facility]) Additional Instructions: You were seen today in the emergency department for sore throat. You have tonsillitis. You are being started on antibiotics. Please take all your antibiotics as prescribed. Please follow-up with your primary care provider in regards to this visit. Please also follow-up with your professor of geology, as you had a slight increase in your kidney function. You received a dose of Decadron, steroid here in the emergency department. The steroid will help with inflammation of your tonsils. Please make sure you check your sugars and what she eat for the next 3 days. Please continue to take Tylenol 1000 mg and ibuprofen 600 mg every 6 hours as needed for pain or fever. Prescriptions: Amoxicillin Trihydrate [Amoxil 875 mg Tablet] 1 tab PO BID #20 tablet Referrals: JUAN CARLOS MALAVE MD [Primary Care Provider] - Follow up in 3-5 days Man QUEVEDO MD [ACTIVE STAFF] - Follow up in 3-5 days
--- NOTE | 2018-09-14 19:34 | RADIOLOGY REPORT (SQ) ---
EXAM DESCRIPTION: CT SOFT TISSUE NECK WITH COMPLETED DATE/TIME: 09/14/2018 6:53 pm REASON FOR STUDY: sore throat, ? epiglottitis Sore throat and difficulty swallowing x1 day. COMPARISON: Soft tissue neck x-ray 09/14/2018 TECHNIQUE: Post IV contrasted scanning from skull base through lung apices with review of bone, soft tissue and lung windows. Reconstructed coronal and sagittal MPR images reviewed. All images stored on PACS. All CT scanners at this facility use dose modulation, iterative reconstruction, and/or weight based d osing when appropriate to reduce radiation dose to as low as reasonably achievable (ALARA). [facility]: Dose Right [facility]: CareDose [facility]: Dose Right [facility]: Teradose 4D [facility]: PPLCONNECT CONTRAST TYPE AND DOSE: contrast/concentration: Isovue 350.00 mg/ml; Total Contrast Delivered: 75.0 ml; Total Saline Delivered: 55.0 ml RENAL FUNCTION: Creatinine 1.45 RADIATION DOSE: CT Rad equipment meets quality standard of care and radiation dose reduction techniq ues were employed. CTDIvol: 16.3 mGy. DLP: 437 mGy-cm. . LIMITATIONS: None. FINDINGS: SKULL BASE: Intact. MAJOR SALIVARY GLANDS: No inflammatory changes. LYMPHADENOPATHY: There are mildly enlarged bilateral cervical lymph nodes, the largest along the jugu lar chain on the right, level 2 measuring 15 mm in short axis. MUCOSAL MASSES OR ASYMMETRY: The palatine tonsils are mildly enlarged and heterogeneous, right more t mckinnon left. No evidence for peritonsillar abscess. The adenoids are mildly enlarged. The epiglottis is not thickened, the finding on prior x-ray was probably artifactual. LARYNX/CORDS: No abnormal findings. VASCULAR STRUCTURES: The major vessels are patent. LUNG APICES: Clear. BONES: Degenerative disc disease with osteophytosis at C5-C6 and C6-C7. THYROID: Normal size. PARANASAL SINUSES: Clear. OTHER: There are bilateral dental cavities. IMPRESSION: 1. Mildly enlarged and heterogeneous palatine tonsils, right more than left, may be seco ndary to acute tonsillitis. Mildly enlarged adenoids. Given the patient's age, followup CT after tr eatment recommended to ensure complete resolution and exclude underlying neoplasm. 2. Mild bilateral cervical adenopathy, may be reactive. This can be re-evaluated at the followup CT. 3. Bilateral dental cavities. Please correlate with dental exam. TECHNICAL DOCUMENTATION: JOB ID: [id number] [facility] Quality ID # [id number]: Final reports with documentation of one or more dose reduction techniques (e.g., Au tomated exposure control, adjustment of the mA and/or kV according to patient size, use of iterative reconstruction technique) 2010 [email or web address]- All Rights Reserved Reading location - IP/workstation name: [email or web address]
[2018-09-14] MEDS ORDERED: IBUPROFEN 600 MG TABLET PO ONE (20:10)
[2018-09-14] MEDS ORDERED: DEXAMETHASONE SOD PHOS INJ 10 MG/1 ML VIAL IM ONE (20:15)
[2018-09-14] MEDS ORDERED: AMOXICILLIN TRIHYDRATE 500 MG CAPSULE PO ONE ×2 (20:16→20:19)
[2018-09-14 20:54] VITALS: BP 139/89
== END 2018-09-14 20:57 | disposition home or self-care (01) ==
LOC: ER 15:38
DX: J03.90 Acute tonsillitis, unspecified (principal); R13.10 Dysphagia, unspecified; R06.00 Dyspnea, unspecified; I10 Essential (primary) hypertension; E11.9 Type 2 diabetes mellitus without complications
CPT/HCPCS: 99284; 96372; 36415; 87070; 87880; 85025; 80053; 70360; 70491; A9270 ×3; J1100

== ENCOUNTER 2018-11-10 08:39 | Emergency (ER) | payer MEDICARE, MEDICAID ==
--- NOTE | 2018-11-10 09:29 | ER Document Report ---
ED General - General Chief Complaint: Vaginal Bleeding Stated Complaint: VAGINAL BLEEDING Time Seen by Provider: 11/10/18 08:49 Primary Care Provider: JUAN CARLOS MALAVE MD [Primary Care Provider] - Follow up in 3-5 days Mode of Arrival: Ambulatory Information source: Patient Notes: This 48-year-old female presents emergency department with complaints that she has been having vaginal bleeding for the past 3 to 4 weeks. She reports she has been wearing double Kotex and having to change them every other hour. She also reports lower abdominal cramping on and off. Denies any cramping at this time. Denies other symptoms such as fever vomiting diarrhea. Denies history of . Is unsure when her last menstrual period was. Reports some pain with void denies urinary frequency. Patient reports she is sexually active with one partner no protection. Patient has history of anemia chronic kidney disease and hypothyroidism. Patient reports she does have a history of heavy menses. Reports she needs this fixed before Saturday because her medicaid will run out and she will only have medicare. TRAVEL OUTSIDE OF THE [place] IN LAST 30 DAYS: No - HPI Onset: Other Onset/Duration: Persistent Quality of pain: Cramping Associated symptoms: None Exacerbated by: Denies Relieved by: Denies Similar symptoms previously: Yes Recently seen / treated by doctor: No - Related Data Allergies/Adverse Reactions: No Known Allergies Allergy (Verified 11/10/18 08:40) Past Medical History - General Information source: Patient Last Menstrual Period: unsure - Social History Smoking Status: Unknown if Ever Smoked Cigarette use (# per day): No Frequency of alcohol use: None Drug Abuse: None Family History: Reviewed & Not Pertinent Patient has suicidal ideation: No Patient has homicidal ideation: No - Medical History Medical History: Other - anemia - Past Medical History Cardiac Medical History: Reports: Hx Hypercholesterolemia, Hx Hypertension Endocrine Medical History: Reports: Hx Diabetes Mellitus Type 2, Hx Hypothyroidism Renal/ Medical History: Reports: Other - chronic kidney disease. Denies: Hx Peritoneal Dialysis GI Medical History: Reports: Hx Gastroesophageal Reflux Disease Psychiatric Medical History: Reports: Hx Depression, Hx Schizoaffective Disorder, Hx Schizophrenia Traumatic Medical History: Denies: Hx Gunshot Wound Past Surgical History: Reports: Hx Cholecystectomy Review of Systems - Review of Systems Notes: Review HPI for review of systems., All other systems negative Physical Exam - Vital signs Vitals: Temp Pulse Resp BP Pulse Ox 98.2 F 87 16 145/88 H 99 11/10/18 08:51 11/10/18 08:51 11/10/18 08:51 11/10/18 08:51 11/10/18 08:51 - Notes Notes: PHYSICAL EXAMINATION: GENERAL: Well-appearing and in no acute distress HEAD: Atraumatic, normocephalic. EYES: Pupils equal round extraocular movements intact, sclera anicteric, conjunctiva are normal. ENT: nares patent, Moist mucous membranes. NECK: Normal range of motion, supple without lymphadenopathy LUNGS: CTAB and equal. No wheezes rales or rhonchi. HEART: Regular rate and rhythm without murmurs ABDOMEN: Soft, no tenderness. No guarding, no rebound BACK: Denies pain EXTREMITIES: Normal range of motion, no pitting edema. NEUROLOGICAL: Cranial nerves grossly intact. PSYCH: Normal mood, normal affect. SKIN: Warm, Dry, normal turgor, no rashes or lesions noted - Genitourinary External exam: Normal Speculum exam: Normal Vaginal bleeding: Moderate Bimanuel exam: Normal Course - Re-evaluation Re-evalutation: 11/10/18 09:28 48-year-old female that presents with heavy vaginal bleeding for the past 3 to 4 weeks. Reports she had a clot the size of her hand 2 days ago. Reports some pa in with void denies urinary frequency denies fever vomiting diarrhea. Patient reports she is sexually active active. Denies vaginal discharge. Reports one partner no protection. Patient also reports that she has a history of anemia and heavy menses. Is unsure when her last menstrual period is. Will evaluate with labs, transvaginal ultrasound to evaluate for fibroids. 11/10/18 10:03 11/10/18 10:03 MCV 85 fl (80-97) 11/10/18 10:03 MCH 28.4 pg (27.0-33.4) 11/10/18 10:03 MCHC 33.3 g/dL (32.0-36.0) 11/10/18 10:03 RDW 15.4 % (11.5-14.0) H 11/10/18 10:03 Seg Neutrophils % 76.0 % (42-78) 11/10/18 10:03 Lymphocytes % 16.5 % (13-45) 11/10/18 10:03 Monocytes % 7.1 % (3-13) 11/10/18 10:03 Eosinophils % 0.0 % (0-6) 11/10/18 10:03 Basophils % 0.4 % (0-2) 11/10/18 10:03 Absolute Neutrophils 3.8 10^3/uL (1.7-8.2) 11/10/18 10:03 Absolute Lymphocytes 0.8 10^3/uL (0.5-4.7) 11/10/18 10:03 Absolute Monocytes 0.4 10^3/uL (0.1-1.4) 11/10/18 10:03 Absolute Eosinophils 0.0 10^3/uL (0.0-0.6) 11/10/18 10:03 Absolute Basophils 0.0 10^3/uL (0.0-0.2) 11/10/18 10:03 Chloride 110 mmol/L (98-107) H 11/10/18 10:03 Carbon Dioxide 27 mmol/L (22-30) 11/10/18 10:03 Anion Gap 5 (5-19) 11/10/18 10:03 Est GFR ( Amer) 52 (>60) L 11/10/18 10:03 Est GFR (Non-Af Amer) 43 (>60) L 11/10/18 10:03 Glucose 164 mg/dL (75-110) H 11/10/18 10:03 Calcium 9.0 mg/dL (8.4-10.2) 11/10/18 10:03 Total Bilirubin 0.2 mg/dL (0.2-1.3) 11/10/18 10:03 AST 16 U/L (14-36) 11/10/18 10:03 ALT 25 U/L (9-52) 11/10/18 10:03 Alkaline Phosphatase 71 U/L (38-126) 11/10/18 10:03 Total Protein 6.2 g/dL (6.3-8.2) L 11/10/18 10:03 Albumin 3.7 g/dL (3.5-5.0) 11/10/18 10:03 Serum HCG, Qual NEGATIVE (NEGATIVE) 11/10/18 10:03 Urine Color YELLOW 11/10/18 10:03 Urine Appearance SLIGHTLY-CLOUDY 11/10/18 10:03 Urine pH 7.0 (5.0-9.0) 11/10/18 10:03 Ur Specific [place] 1.011 11/10/18 10:03 Urine Protein 30 mg/dL (NEGATIVE) H 11/10/18 10:03 Urine Glucose (UA) NEGATIVE mg/dL (NEGATIVE) 11/10/18 10:03 Urine Ketones NEGATIVE mg/dL (NEGATIVE) 11/10/18 10:03 Urine Blood LARGE (NEGATIVE) H 11/10/18 10:03 Urine Nitrite NEGATIVE (NEGATIVE) 11/10/18 10:03 Ur Leukocyte Esterase NEGATIVE (NEGATIVE) 11/10/18 10:03 Urine WBC (Auto) 47 /HPF 11/10/18 10:03 Urine RBC (Auto) >182 /HPF 11/10/18 10:03 11/10/18 12:09 h/h 9.11/10 with creatinine/GFR 1.34/43. Ovarian cyst noted on US. patient has history of anemia and chronic renal disease. She was instructed on all results and instructed to follow-up with her primary care provider for recheck. She was also instructed follow-up with [facility] for evaluation of heavy menses. She verbalized understanding to all instruction Transvaginal US 11/10/18 09:23 IMPRESSION: 3.3 cm left ovarian cyst, almost certainly benign. No additional imaging follow-up is required for this. 11/10/18 20:03 - Vital Signs Vital signs: Temp Pulse Resp BP Pulse Ox 97.3 F 78 16 122/82 100 11/10/18 13:18 11/10/18 13:18 11/10/18 08:51 11/10/18 13:18 11/10/18 13:18 - Laboratory Result Diagrams: 11/10/18 10:03 11/10/18 10:03 Laboratory results interpreted by me: 11/10/18 11/10/18 11/10/18 10:03 10:03 10:03 RBC 3.40 L Hgb 9.7 L Hct 29.0 L RDW 15.4 H Chloride 110 H Creatinine 1.34 H Est GFR ( Amer) 52 L Est GFR (Non-Af Amer) 43 L Glucose 164 H Total Protein 6.2 L Urine Protein 30 H Urine Blood LARGE H - Diagnostic Test Radiology reviewed: Image reviewed, Reports reviewed Procedures - Pelvic Exam Pelvic exam Time completed: 12:08 Cultures obtained: Yes Wet prep obtained: Yes Herpes culture obtained: No POC sent to lab: No Foreign body removed: No Bimanual exam performed: Yes Witnessed by: salazar chavez Discharge - Discharge Clinical Impression: Vaginal bleeding Anemia Qualifiers: Anemia type: unspecified type Qualified Code(s): D64.9 - Anemia, unspecified Chronic renal disease Qualifiers: Chronic kidney disease stage: unspecified stage Qualified Code(s): N18.9 - Chronic kidney disease, unspecified Condition: Stable Disposition: HOME, SELF-CARE Instructions: Anemia ([facility]), Ob-[facility] [employer] [facility], [facility], Ovarian Cyst ([facility]), Vaginal Bleeding ([facility]) Additional Instructions: *You have been evaluated for vaginal bleeding, ovarian cyst, history of anemia, chronic renal failure *The STD cultures are pending. You will be contacted should you need treatment. *Follow up with your primary care provider this week *Follow up with your PROGRAMMING SPECIALIST or the health department for recheck within one week *Avoid sexual intercourse until follow up *Return to ED for worsening condition, changes, needs Monitor your blood pressure. Your blood pressure was elevated today. This may be because you were anxious, in pain or because you need medication. It is important to follow up with your primary care provider for full evaluation. Forms: Elevated Blood Pressure Referrals: JUAN CARLOS MALAVE MD [Primary Care Provider] - Follow up in 3-5 days
[2018-11-10 10:17] LABS: ABSOLUTE LYMPHOCYTES (AUTO) 0.8 10^3/uL (0.5-4.7); ABSOLUTE MONOCYTES (AUTO) 0.4 10^3/uL (0.1-1.4); ABSOLUTE NEUT (AUTO) 3.8 10^3/uL (1.7-8.2); BASOPHILS % (AUTO) 0.4 % (0-2); HEMOGLOBIN 9.7 g/dL (12.0-15.5); LYMPHOCYTES % (AUTO) 16.5 % (13-45); MEAN CORPUSCULAR HEMOGLOBIN 28.4 pg (27.0-33.4); MEAN CORPUSCULAR HGB CONC 33.3 g/dL (32.0-36.0); MEAN CORPUSCULAR VOLUME 85 fl (80-97); MONOCYTES % (AUTO) 7.1 % (3-13); PLATELET COUNT 164 10^3/uL (150-450); RED CELL DISTRIBUTION WIDTH 15.4 % (11.5-14.0); TOTAL CELLS COUNTED % (AUTO) 100 %
[2018-11-10 10:42] LABS: ALANINE AMINOTRANSFERASE 25 U/L (9-52); ALBUMIN 3.7 g/dL (3.5-5.0); ALKALINE PHOSPHATASE 71 U/L (38-126); ANION GAP 5 (5-19); ASPARTATE AMINO TRANSFERASE 16 U/L (14-36); BILIRUBIN,DIRECT 0.2 mg/dL (0.0-0.4); BILIRUBIN,TOTAL 0.2 mg/dL (0.2-1.3); BLOOD UREA NITROGEN 14 mg/dL (7-20); CARBON DIOXIDE 27 mmol/L (22-30); CHLORIDE 110 mmol/L (98-107); GLUCOSE 164 mg/dL (75-110); POTASSIUM 4.2 mmol/L (3.6-5.0); TOTAL PROTEIN 6.2 g/dL (6.3-8.2)
[2018-11-10 10:58] LABS: APPEARANCE,URINE SLIGHTLY-CLOUDY; BILIRUBIN,URINE NEGATIVE (NEGATIVE); COLOR,URINE YELLOW; GLUCOSE, URINE NEGATIVE (NEGATIVE); KETONES,URINE NEGATIVE (NEGATIVE); LEUKOCYTE ESTERASE,URINE NEGATIVE (NEGATIVE); NITRITE,URINE NEGATIVE (NEGATIVE); PROTEIN,URINE 30 mg/dL (NEGATIVE); URINE SPECIFIC GRAVITY 1.011; UROBILINOGEN,URINE NEGATIVE mg/dL (<2.0)
[2018-11-10 12:18] LABS: T.VAGINALIS (WET MOUNT) NO TRICHOMONAS SEEN
[2018-11-10 12:19] LABS: BACTERIA (WET MOUNT) 3+ BACTERIA SEEN; RBCS (WET MOUNT) 3+ RBCS SEEN; WBCS (WET MOUNT) 3+ WBCS SEEN; YEAST (WET MOUNT) NO YEAST SEEN
--- NOTE | 2018-11-10 12:28 | RADIOLOGY REPORT (SQ) ---
EXAM DESCRIPTION: U/S NON OB PEL TV W/DOPPLER COMPLETED DATE/TIME: 11/10/2018 11:22 am REASON FOR STUDY: vag bleed, lower abd cramp COMPARISON: None. TECHNIQUE: Dynamic and static grayscale images acquired of the pelvis via transvaginal approach and recorded on PACS. Additional selected color Doppler and spectral images recorded. LIMITATIONS: None. FINDINGS: UTERUS: Contour normal. No mass. ENDOMETRIAL STRIPE: No focal or generalized thickening. No masses. CERVIX: No nabothian cysts. 2.5 cm. RIGHT OVARY AND DOPPLER: Normal size. No worrisome masses. Normal arterial vascular flow without evid ence for torsion. LEFT OVARY AND DOPPLER: Normal size. No worrisome masses. Normal arterial vascular flow without evide nce for torsion. 3.2 x 3.3 x 2.3 cm cyst. FREE FLUID: None noted. OTHER: No other significant finding. MEASUREMENTS: UTERUS: 8.5 x 5.5 x 3.8 cm. ENDOMETRIAL STRIPE: 1.3 cm. RIGHT OVARY: 2.6 x 2 x 1.5 cm. LEFT OVARY: 4.1 x 3.7 x 2.5 cm.c IMPRESSION: 3.3 cm left ovarian cyst, almost certainly benign. No additional imaging follow-up is r equired for this. TECHNICAL DOCUMENTATION: JOB ID: [id number] [employer]- All Rights Reserved Rev Reading location - IP/workstation name: [email or web address]
[2018-11-10 13:23] VITALS: BP 122/82
[2018-11-10 13:50] LABS: CHLAM PCR NOT DETECTED (NOT DETECT)
== END 2018-11-10 13:24 | disposition home or self-care (01) ==
LOC: ER 08:39
DX: N93.8 Other specified abnormal uterine and vaginal bleeding (principal); N83.202 Unspecified ovarian cyst, left side; D63.1 Anemia in chronic kidney disease; N18.9 Chronic kidney disease, unspecified; I12.9 Hypertensive chronic kidney disease with stage 1 through stage 4 chronic kidney disease, or unspecified chronic kidney disease; E11.22 Type 2 diabetes mellitus with diabetic chronic kidney disease; E78.00 Pure hypercholesterolemia, unspecified; Z90.49 Acquired absence of other specified parts of digestive tract
CPT/HCPCS: 36415; 76830; 80053; 81001; 84703; 85025; 87210; 87491; 87591; 93976; 99284

== ENCOUNTER 2018-11-15 18:51 | Emergency (ER) | payer MEDICAID, MEDICARE ==
[2018-11-15 19:47] LABS: ABSOLUTE LYMPHOCYTES (AUTO) 1.4 10^3/uL (0.5-4.7); ABSOLUTE MONOCYTES (AUTO) 0.4 10^3/uL (0.1-1.4); ABSOLUTE NEUT (AUTO) 3.9 10^3/uL (1.7-8.2); BASOPHILS % (AUTO) 0.2 % (0-2); HEMATOCRIT 26.3 % (36.0-47.0); HEMOGLOBIN 8.7 g/dL (12.0-15.5); LYMPHOCYTES % (AUTO) 23.9 % (13-45); MEAN CORPUSCULAR HEMOGLOBIN 28.6 pg (27.0-33.4); MEAN CORPUSCULAR HGB CONC 33.1 g/dL (32.0-36.0); MEAN CORPUSCULAR VOLUME 86 fl (80-97); MONOCYTES % (AUTO) 7.2 % (3-13); PLATELET COUNT 190 10^3/uL (150-450); RED BLOOD COUNT 3.05 10^6/uL (3.72-5.28); RED CELL DISTRIBUTION WIDTH 15.9 % (11.5-14.0); SEGMENTED NEUTROPHILS % (AUTO) 68.7 % (42-78); TOTAL CELLS COUNTED % (AUTO) 100 %; WHITE BLOOD COUNT 5.7 10^3/uL (4.0-10.5)
[2018-11-15 20:11] LABS: ALBUMIN 3.7 g/dL (3.5-5.0); ALKALINE PHOSPHATASE 78 U/L (38-126); ANION GAP 8 (5-19); ASPARTATE AMINO TRANSFERASE 26 U/L (14-36); BILIRUBIN,DIRECT 0.2 mg/dL (0.0-0.4); BILIRUBIN,TOTAL 0.2 mg/dL (0.2-1.3); BLOOD UREA NITROGEN 15 mg/dL (7-20); CALCIUM 8.7 mg/dL (8.4-10.2); CARBON DIOXIDE 23 mmol/L (22-30); CHLORIDE 109 mmol/L (98-107); GLUCOSE 201 mg/dL (75-110); LITHIUM 0.7 mEq/L (0.6-1.2); POTASSIUM 3.9 mmol/L (3.6-5.0); TOTAL PROTEIN 6.4 g/dL (6.3-8.2)
[2018-11-15 20:17] LABS: ACETAMINOPHEN < 10 ug/mL (10-30); ALCOHOL < 10 mg/dL (NONE DETECTED); SALICYLATE < 1.0 mg/dL (2.0-20.0)
[2018-11-15 20:54] LABS: APPEARANCE,URINE SLIGHTLY-CLOUDY; BILIRUBIN,URINE NEGATIVE (NEGATIVE); COLOR,URINE YELLOW; GLUCOSE, URINE NEGATIVE (NEGATIVE); KETONES,URINE NEGATIVE (NEGATIVE); LEUKOCYTE ESTERASE,URINE NEGATIVE (NEGATIVE); NITRITE,URINE NEGATIVE (NEGATIVE); PROTEIN,URINE NEGATIVE (NEGATIVE); URINE SPECIFIC GRAVITY 1.011; UROBILINOGEN,URINE NEGATIVE mg/dL (<2.0)
--- NOTE | 2018-11-15 20:56 | ER Document Report ---
Addendum entered and electronically signed by ASHLEY FOSTER MD 11/17/18 12:35: Discharge - Discharge Clinical Impression: Intentional overdose of drug in tablet form, Schizoaffective disorder Suicidal overdose Qualifiers: Encounter type: initial encounter Qualified Code(s): T50.902A - Poisoning by unspecified drugs, medicaments and biological substances, intentional self-harm, initial encounter Schizophrenia Qualifiers: Schizophrenia type: other Qualified Code(s): F20.89 - Other schizophrenia Condition: Stable Disposition: HOME, SELF-CARE Additional Instructions: You have been evaluated by both medical and behavioral health providers while in the emergency department. You have been cleared from both acute medical and psychiatric services. You have had recent transitions (Medicaid stopped/VA Benefits added which has affected services being provided such as ACTT, you have been living on your own and independent living skills may be beneficial which can often be obtained via [employer] or the [facility] may have programming, and you are dealing with grief). All of these are considered stress and can cause and/or exacerbate mental health symptoms even when medicated. You should attend your upcoming outpatient mental health appointment this week at [facility] ([facility]) and make sure they are aware of all your recent stress. Schizophrenia Schizophrenia is a chemical disorder that affects how the brain functions. The exact cause is unknown, but it tends to run in families. It is NOT caused by emotional trauma. Schizophrenia causes disordered thinking, including unusual beliefs and inability to "process" happenings around the patient. Patients with schizophrenia benefit greatly from medicine. These medicines are called antipsychotics. Never stop the medicine without the doctor's approval. Counselling may help the patient deal with his disease. Schizophrenics require a very ordered environment. Stresses and sudden changes may bring out symptoms. Drugs and alcohol abuse may become problems. Contact the counsellor or crisis line if there are thoughts of suicide or of harming others, or if you become aware of unusual thoughts or beliefs Depression Your evaluation reveals that you have mental depression. While symptoms may be vague, they often include disturbance of sleep, fatigue, loss of appetite, and general loss of interest in life. While depression may be a side effect of drugs, or a reaction to a major change in your life, many cases have no known cause. If depression is acute, and related to a major loss in your life, you can expect it to clear completely with time. If you have been depressed a long time, are prone to repeated bouts of depression or low mood, or have been thinking of suicide, get help. Depression can be treated with anti-depressant medication and counselling. Long-term depression will often take a few weeks to clear, even with appropriate medication. Follow-up care is important. Contact your physician, the hospital emergency center, crisis line, or your counsellor if you are losing control or having self-destructive thoughts. SUICIDAL IDEATION: Suicidal ideation is a common medical term for thoughts about suicide, which may be as detailed as a formulated plan, without the suicidal act itself. Although most people who undergo suicidal ideation do not commit suicide, some g o on to make suicide attempts. The range of suicidal ideation varies greatly from fleeting to detailed planning, role playing, and unsuccessful attempts. While thoughts about suicide are common, most people do not carry out serious actions to commit suicide. Based upon your evaluation and discussion with you, we do not believe you are currently at risk to act upon your thoughts of suicide. You have agreed to return to the Emergency Department, at any time, if you feel inclined to act upon your suicidal thoughts. FOLLOW-UP CARE: You are being provided a prescription for the Crowell you said you ran out of. you should continue your medications as prescribed. Per you and your sister you have a follow up medication appointment already scheduled with [facility] ([facility]) this week. You are recommended to attend this appointment. You have also been provided the [facility] Mobile Crisis number for crisis, talk therapy and linkage to other supports/services. Your sister was included in the and made aware of plan of care. If you experience worsening or a significant change in your symptoms, notify the physician immediately, utilize mobile crisis or return to the Emergency Department at any time for re-evaluation. Anemia, Iron Deficiency You have anemia (a lower than normal amount of red blood cells). Our tests show it's due to lack of iron in your body. In infants and children, iron deficiency is usually due to lack of iron in the diet. In adults, it's most often caused by blood loss (heavy periods or intestinal bleeding) or by . If the cause of iron deficiency is not clear, we evaluate for hidden intestinal bleeding. Another possible cause is failure to absorb iron properly. Iron-deficiency is treated with iron supplements. Iron pills can upset your stomach and cause constipation. Taking it with food decreases nausea. Expect the stool to become darker (but not black). Taking iron with a juice high in vitamin C (orange juice, tomato juice) increases absorption. You can increase your dietary iron by eating liver, oysters, and lean beef; wheat germ, peas, and lentils; and molasses, dried prunes, spinach, and broccoli. Contact the doctor at once if you note black or tarry-looking stools, bloody vomiting, shortness of breath, chest pain, or faintness. You have been prescribed medication to treat your anemia. VAGINAL BLEEDING: You are having an episode of abnormal bleeding. Causes of abnormal vaginal bleeding can include miscarriage or tubal , tumors such as cancer or benign fibroids, medication effects, or hormone imbalance. Testing can eliminate unsuspected , tumors, or infection as a cause. "Dysfunctional uterine bleeding" is due to hormone imbalance, and is especially common at times when the normal cycle is disturbed -- whether by recent , use of control pills or hormones, or impending menopause. If the bleeding is innocent, most commonly a short course of hormones is given to restore the uterus to normal. Sometimes, the normal menstrual cycle corrects itself naturally. Sometimes, brief hormone therapy, or even a D&C is required. Your physician will advise you. Treatment for anemia may be required if bleeding is severe. You should rest and avoid intercourse until the bleeding is controlled. Call the doctor or return for re-examination if you feel faint, have increasing pain, or have a major increase in the amount of bleeding. Your ultrasound showed a moderate size ovarian cyst, but no other significant abnormalities. No cause for your vaginal bleeding found. PROVERA: Provera (medroxyprogesterone) is usually used to stop excessive uterine b leeding or to regulate the periods. Provera is a form of progesterone, the hormone that stimulates the uterus lining to mature during the second half of your cycle. High doses of Provera can usually stop uterine bleeding. It's most useful for the abnormal bleeding that occurs when periods are irregular, such as around menopause. Provera usually isn't helpful for bleeding that occurs after Depo- Provera or Norplant. There is often another heavy "period" when you finish the Provera. Af terwards, the periods usually return to normal within a month or two. Contact your doctor if bleeding becomes more severe, or if you develop abdominal pain, lightheadedness, fever, or other new symptoms. FOLLOW-UP CARE: If you have been referred to a physician for follow-up care, call the [facility] icians office for an appointment as you were instructed or within the next two days. If you experience worsening or a significant change in your symptoms, notify the physician immediately or return to the Emergency Department at any time for re-evaluation. FOLLOW-UP CARE: If you have been referred to a physician for follow-up care, call the physicians office for an appointment as you were instructed or within the next two days. If you experience worsening or a significant change in your symptoms (very heavy bleeding with large clots of blood, passage of tissue, more severe abdominal / pelvic pain or cramping, feeling faint or severe weakness, fever, etc.), notify the physician immediately or return to the Emergency Department at any time for re-evaluation. Keep your appointment Saturday with [facility] [address] [place] [address] [phone] Prescriptions: Ferrous Sulfate [Albafort] 325 mg PO BID #60 tablet Crowell Carbonate 300 mg PO BID #10 tablet Medroxyprogesterone Acet [Provera 10 Mg Tablet] 10 mg PO DAILY #10 tablet Referrals: [facility] [Outside] - Follow up in 3-5 days IF Crisis Team [Outside] - Follow up as needed JUAN CARLOS MALAVE MD [Primary Care Provider] - Follow up as needed Addendum entered and electronically signed by FELA STEWART LPC 11/17/18 11:46: Discharge - Discharge Clinical Impression: Intentional overdose of drug in tablet form, Schizoaffective disorder Suicidal overdose Qualifiers: Encounter type: initial encounter Qualified Code(s): T50.902A - Poisoning by unspecified drugs, medicaments and biological substances, intentional self-harm, initial encounter Schizophrenia Qualifiers: Schizophrenia type: other Qualified Code(s): F20.89 - Other schizophrenia Condition: Stable Disposition: HOME, SELF-CARE Additional Instructions: You have been evaluated by both medical and behavioral health providers while in the emergency department. You have been cleared from both acute medical and psychiatric services. You have had recent transitions (Medicaid stopped/[place] Benefits added which has affected services being provided such as ACTT, you have been living on your own and independent living skills may be beneficial which can often be obtained via [employer] or the [place] may have programming, and you are dealing with grief). All of these are considered stress and can cause and/or exacerbate mental health symptoms even when medicated. You should attend your upcoming outpatient mental health appointment this week at [facility] ([facility]) and make sure they are aware of all your recent stress. Schizophrenia Schizophrenia is a chemical disorder that affects how the brain functions. The exact cause is unknown, but it tends to run in families. It is NOT caused by emotional trauma. Schizophrenia causes disordered thinking, including unusual beliefs and inability to "process" happenings around the patient. Patients with schizophrenia benefit greatly from medicine. These medicines are called antipsychotics. Never stop the medicine without the doctor's approval. Counselling may help the patient deal with his disease. Schizophrenics require a very ordered environment. Stresses and sudden changes may bring out symptoms. Drugs and alcohol abuse may become problems. Contact the counsellor or crisis line if there are thoughts of suicide or of harming others, or if you become aware of unusual thoughts or beliefs Depression Your evaluation reveals that you have mental depression. While symptoms may be vague, they often include disturbance of sleep, fatigue, loss of appetite, and general loss of interest in life. While depression may be a side effect of drugs, or a reaction to a major change in your life, many cases have no known cause. If depression is acute, and related to a major loss in your life, you can expect it to clear completely with time. If you have been depressed a long time, are prone to repeated bouts of depression or low mood, or have been thinking of suicide, get help. Depression can be treated with anti-depressant medication and counselling. Long-term depression will often take a few weeks to clear, even with appropriate medication. Follow-up care is important. Contact your physician, the hospital emergency center, crisis line, or your counsellor if you are losing control or having self-destructive thoughts. SUICIDAL IDEATION: Suicidal ideation is a common medical term for thoughts about suicide, which may be as detailed as a formulated plan, without the suicidal act itself. Although most people who undergo suicidal ideation do not commit suicide, some go on to make suicide attempts. The range of suicidal ideation varies greatly from fleeting to detailed planning, role playing, and unsuccessful attempts. While thoughts about suicide are common, most people do not carry out serious actions to commit suicide. Based upon your evaluation and discussion with you, we do not believe you are currently at risk to act upon your thoughts of suicide. You have agreed to return to the Emergency Department, at any time, if you feel inclined to act upon your suicidal thoughts. FOLLOW-UP CARE: You are being provided a prescription for the Crowell you said you ran out of. you should continue your medications as prescribed. Per you and your sister you have a follow up medication appointment already scheduled with [facility] ([facility]) this week. You are recommended to attend this appointment. You have also been provided the [facility] Mobile Crisis number for crisis, talk therapy and linkage to other supports/services. Your sister was included in the and made aware of plan of care. If you experience worsening or a significant change in your symptoms, notify the physician immediately, utilize mobile crisis or return to the Emergency Department at any time for re-evaluation. Referrals: JUAN CARLOS MALAVE MD [Primary Care Provider] - Follow up as needed [facility] Crisis Team [Outside] - Follow up as needed [facility] [Outside] - Follow up in 3-5 days Original Note: ED General - General Chief Complaint: Possible Overdose Stated Complaint: POSSIBLE OVERDOSE Time Seen by Provider: 11/15/18 19:34 Primary Care Provider: JUAN CARLOS MALAVE MD [Primary Care Provider] - Follow up as needed Mode of Arrival: Medic Information source: Patient, Emergency Med Personnel, [facility] Records Notes: 48-year-old female with hypertension, hyperlipidemia, type 2 diabetes, hypothyroidism, schizophrenia presents via EMS from home after an intentional overdose of Tradjenta and levothyroxine. Patient states that her intent was to hurt herself. She states that she has been under enormous stress including fighting with her sister. She does state that she has had a previous attempt to many years ago. Patiently currently lives a lone. Her only physical complaint is headache. Patient denies homicidal ideation, visual and auditory hallucinations. Patient takes lithium but states that she has been out of this medication for over 1 week. TRAVEL OUTSIDE OF THE [place] IN LAST 30 DAYS: No - HPI Onset: Just prior to arrival Onset/Duration: Sudden Quality of pain: No pain Severity: None Pain Level: Denies Associated symptoms: Headache Exacerbated by: Denies Relieved by: Denies Similar symptoms previously: Yes Recently seen / treated by doctor: Yes - Related Data Allergies/Adverse Reactions: No Known Allergies Allergy (Verified 11/10/18 08:40) Past Medical History - General Information source: Patient, Emergency Med Personnel, [facility] Records - Social History Smoking Status: Never Smoker Frequency of alcohol use: None Drug Abuse: None Lives with: Alone Family History: Reviewed & Not Pertinent Patient has suicidal ideation: No Patient has homicidal ideation: No - Past Medical History Cardiac Medical History: Reports: Hx Hypercholesterolemia, Hx Hypertension Endocrine Medical History: Reports: Hx Diabetes Mellitus Type 2, Hx Hypothyroidism Renal/ Medical History: Denies: Hx Peritoneal Dialysis GI Medical History: Reports: Hx Gastroesophageal Reflux Disease Psychiatric Medical History: Reports: Hx Depression, Hx Schizoaffective Disorder, Hx Schizophrenia Traumatic Medical History: Denies: Hx Gunshot Wound Past Surgical History: Reports: Hx Cholecystectomy Review of Systems - Review of Systems Notes: REVIEW OF SYSTEMS: CONSTITUTIONAL : Denies fever, chills, or sweats. Denies recent illness. Denies weight loss, recent hospitalizations. EENT: Denies visual changes, eye pain. Denies sore throat, oral lesions, difficulty swallowing. CARDIOVASCULAR: Denies chest pain. Denies palpitations. Denies lower extremity edema. RESPIRATORY: Denies cough. Denies shortness of breath, wheezing. GASTROINTESTINAL: Denies abdominal pain or distention. Denies nausea, vomiting, or diarrhea. Denies blood in vomitus, stools, or per rectum. Denies black, tarry stools. Denies constipation. GENITOURINARY: Denies difficulty urinating, painful urination, frequency, blood in urine, or vaginal discharge. MUSCULOSKELETAL: Denies back or neck pain or stiffness. Denies joint pain or swelling. SKIN: Denies rash, lesions or sores. HEMATOLOGIC : Denies easy bruising or bleeding. LYMPHATIC: Denies swollen glands. NEUROLOGICAL: Denies confusion or altered mental status. Denies loss of consciousness. Denies dizziness or lightheadedness. + headache. Denies weakness or paralysis. Denies problems difficulty with ambulation, slurred speech. Denies sensory loss, numbness, or tingling. Denies seizures. PSYCHIATRIC: Denies anxiety or stress. Denies depression, homicidal ideation. Denies visual or auditory hallucinations. Physical Exam - Vital signs Vitals: Temp Pulse Resp BP Pulse Ox 98.5 F 78 16 133/76 H 100 11/15/18 18:55 11/15/18 18:55 11/15/18 18:55 11/15/18 18:55 11/15/18 18:55 - Notes Notes: PHYSICAL EXAMINATION: GENERAL: Well-appearing, well-nourished and in no acute distress. HEAD: Atraumatic, normocephalic. EYES: Pupils equal round and reactive to light, extraocular movements intact, conjunctiva are normal. ENT: Nares patent, oropharynx clear without exudates. Moist mucous membranes. NECK: Normal range of motion, supple without lymphadenopathy LUNGS: Breath sounds clear to auscultation bilaterally and equal. No wheezes rales or rhonchi. HEART: Regular rate and rhythm without murmurs ABDOMEN: Soft, nontender, nondistended abdomen. No guarding, no rebound. No masses appreciated. Female : deferred Musculoskeletal: Normal range of motion, no pitting or edema. No cyanosis. NEUROLOGICAL: Cranial nerves grossly intact. Normal speech, normal gait. Normal sensory, motor exams PSYCH: Normal mood, normal affect. Admits to suicidal ideation. SKIN: Warm, Dry, normal turgor, no rashes or lesions noted. Course - Re-evaluation Re-evalutation: Laboratory 11/15/18 11/15/18 11/15/18 19:09 19:09 19:09 WBC 5.7 RBC 3.05 L Hgb 8.7 L Hct 26.3 L MCV 86 MCH 28.6 MCHC 33.1 RDW 15.9 H Plt Count 190 Seg Neutrophils % 68.7 Lymphocytes % 23.9 Monocytes % 7.2 Eosinophils % 0.0 Basophils % 0.2 Absolute Neutrophils 3.9 Absolute Lymphocytes 1.4 Absolute Monocytes 0.4 Absolute Eosinophils 0.0 Absolute Basophils 0.0 Sodium 140.0 Potassium 3.9 Chloride 109 H Carbon Dioxide 23 Anion Gap 8 BUN 15 Creatinine 1.39 H Est GFR ( Amer) 49 L Est GFR (Non-Af Amer) 41 L Glucose 201 H Calcium 8.7 Total Bilirubin 0.2 Direct Bilirubin 0.2 Neonat Total Bilirubin Not Reportable Neonat Direct Bilirubin Not Reportable Neonat Indirect Bili Not Reportable AST 26 ALT 11 Alkaline Phosphatase 78 Total Protein 6.4 Albumin 3.7 Serum HCG, Qual NEGATIVE Urine Color Urine Appearance Urine pH Ur Specific [place] Urine Protein Urine Glucose (UA) Urine Ketones Urine Blood Urine Nitrite Urine Bilirubin Urine Urobilinogen Ur Leukocyte Esterase Urine WBC (Auto) Urine RBC (Auto) Urine Bacteria (Auto) Squamous Epi Cells Auto Urine Mucus (Auto) Urine Ascorbic Acid Salicylates < 1.0 L Acetaminophen < 10 L Crowell 0.7 Serum Alcohol < 10 11/15/18 19:55 WBC RBC Hgb Hct MCV MCH MCHC RDW Plt Count Seg Neutrophils % Lymphocytes % Monocytes % Eosinophils % Basophils % Absolute Neutrophils Absolute Lymphocytes Absolute Monocytes Absolute Eosinophils Absolute Basophils Sodium Potassium Chloride Carbon Dioxide Anion Gap BUN Creatinine Est GFR ( Amer) Est GFR (Non-Af Amer) Glucose Calcium Total Bilirubin Direct Bilirubin Neonat Total Bilirubin Neonat Direct Bilirubin Neonat Indirect Bili AST ALT Alkaline Phosphatase Total Protein Albumin Serum HCG, Qual Urine Color YELLOW Urine Appearance SLIGHTLY-CLOUDY Urine pH 6.0 Ur Specific [place] 1.011 Urine Protein NEGATIVE Urine Glucose (UA) NEGATIVE Urine Ketones NEGATIVE Urine Blood LARGE H Urine Nitrite NEGATIVE Urine Bilirubin NEGATIVE Urine Urobilinogen NEGATIVE Ur Leukocyte Esterase NEGATIVE Urine WBC (Auto) 3 Urine RBC (Auto) >182 Urine Bacteria (Auto) TRACE Squamous Epi Cells Auto 4 Urine Mucus (Auto) RARE Urine Ascorbic Acid NEGATIVE Salicylates Acetaminophen Crowell Serum Alcohol Temp Pulse Resp BP Pulse Ox 98.5 F 78 19 114/71 100 11/15/18 18:55 11/15/18 18:55 11/15/18 20:00 11/15/18 20:00 11/15/18 20:00 48-year-old female with hypertension, hyperlipidemia, type 2 diabetes, hypothyroidism, schizophrenia presents via EMS from home after an intentional overdose of Tradjenta and levothyroxine. Patient states that her intent was to hurt herself. She states that she has been under enormous stress including fighting with her sister. Vital signs stable upon arrival. Patient is alert, awake and nontoxic in appearance. 11/15/18 20:56 Poison control was contacted and they report that Tradjenta does not cause hypoglycemia unless it is co-ingested with another agent and they have no concern for the amount of Synthroid that the patient has took. They report that the patient may experience GI upset and recommends 6 hours of observation. IVC petition initiated. 11/15/18 20:57 Patient will be cleared for behavioral health evaluation at 0200. 11/15/18 21:42 11/15/18 21:42 11/15/18 21:46 - Vital Signs Vital signs: Temp Pulse Resp BP Pulse Ox 98.5 F 78 19 114/71 100 11/15/18 18:55 11/15/18 18:55 11/15/18 20:00 11/15/18 20:00 11/15/18 20:00 - Laboratory Result Diagrams: 11/15/18 19:09 11/15/18 19:09 Laboratory results interpreted by me: 11/15/18 11/15/18 11/15/18 19:09 19:09 19:55 RBC 3.05 L Hgb 8.7 L Hct 26.3 L RDW 15.9 H Chloride 109 H Creatinine 1.39 H Est GFR ( Amer) 49 L Est GFR (Non-Af Amer) 41 L Glucose 201 H Urine Blood LARGE H Salicylates < 1.0 L Acetaminophen < 10 L - EKG Interpretation by Me EKG shows normal: Sinus rhythm Rate: Normal Rhythm: NSR When compared to previous EKG there are: No significant change Discharge - Discharge Clinical Impression: Intentional overdose of drug in tablet form Suicidal overdose Qualifiers: Encounter type: initial encounter Qualified Code(s): T50.902A - Poisoning by unspecified drugs, medicaments and biological substances, intentional self-harm, initial encounter Schizophrenia Qualifiers: Schizophrenia type: other Qualified Code(s): F20.89 - Other schizophrenia Condition: Good Disposition: OTHER Referrals: JUAN CARLOS MALAVE MD [Primary Care Provider] - Follow up as needed
[2018-11-15 21:08] LABS: URINE AMPHETAMINES SCREEN NEGATIVE; URINE BARBITURATES SCREEN NEGATIVE; URINE BENZODIAZEPINES SCREEN NEGATIVE; URINE COCAINE SCREEN NEGATIVE; URINE MARIJUANA (THC) SCREEN NEGATIVE; URINE METHADONE SCREEN NEGATIVE; URINE PHENCYCLIDINE SCREEN NEGATIVE
[2018-11-15] MEDS ORDERED: NORMAL SALINE 1000 ML 1,000 ML IV ONE (21:11)
--- NOTE | 2018-11-16 01:55 | EKG REPORT ---
SEVERITY:- ABNORMAL ECG - SINUS RHYTHM PROBABLE INFERIOR INFARCT, AGE INDETERMINATE CONSIDER ANTERIOR INFARCT : Confirmed by: Jessica Perales MD 16-Nov-2018 01:54:45
[2018-11-16] MEDS ORDERED: DOCUSATE SODIUM 100 MG/10 ML UDC PO ONE (10:29)
--- NOTE | 2018-11-16 10:29 | ER Document Report ---
Doctor's Note Notes: 11/16/18 10:28 I have evaluated this pt. this am and she has no c/o at this time. She feels all of her needs are being met and her physical exam is normal. She is awaiting disposition per mental health.
[2018-11-16] MEDS: BUSPIRONE HCL 10 MG TABLET PO SCH ×2 (15:21→22:32)
[2018-11-16] MEDS: LEVOTHYROXINE SODIUM 0.075 MG TABLET PO SCH (15:21)
[2018-11-16] MEDS: PAROXETINE HCL 20 MG TABLET PO SCH (15:22)
[2018-11-16] MEDS: DOCUSATE SODIUM 100 MG CAPSULE PO SCH (15:22)
[2018-11-16] MEDS: CLOZAPINE 100 MG TABLET PO SCH ×2 (15:22→22:33)
[2018-11-16] MEDS: MULTIVITAMIN TABLET PO SCH (15:22)
[2018-11-16] MEDS: TRIHEXYPHENIDYL HCL 2 MG TABLET PO SCH ×2 (15:23→22:32)
[2018-11-16] MEDS: SITAGLIPTIN PHOSPHATE 50 MG TABLET PO SCH (15:27)
[2018-11-16] MEDS ORDERED: ZIPRASIDONE MESYLATE INJ/PF 20 MG SDV IM ONE (15:45)
[2018-11-16] MEDS ORDERED: (PENDING PHARMACY ID) (Lithium Carbonate [Lithium Carbonate Er] 600 MG) PO SCH (22:00)
[2018-11-16] MEDS: LITHIUM CARBONATE 300 MG CAPSULE PO SCH (22:33)
[2018-11-17] MEDS: LEVOTHYROXINE SODIUM 0.075 MG TABLET PO SCH (07:03)
[2018-11-17] MEDS: CLOZAPINE 100 MG TABLET PO SCH (09:45)
[2018-11-17] MEDS: DOCUSATE SODIUM 100 MG CAPSULE PO SCH (09:46)
[2018-11-17] MEDS: BUSPIRONE HCL 10 MG TABLET PO SCH (09:46)
[2018-11-17] MEDS ORDERED: (PENDING PHARMACY ID) (Linagliptin [Tradjenta] 5 MG) PO SCH (10:00)
[2018-11-17] MEDS ORDERED: MEDROXYPROGESTERONE ACET 10 MG TABLET PO ONE (10:09)
[2018-11-17] MEDS ORDERED: FERROUS SULFATE 325 MG TABLET PO ONE (10:10)
[2018-11-17] MEDS: MULTIVITAMIN TABLET PO SCH (10:22)
[2018-11-17] MEDS: LITHIUM CARBONATE 300 MG CAPSULE PO SCH (10:22)
[2018-11-17] MEDS: SITAGLIPTIN PHOSPHATE 50 MG TABLET PO SCH (10:22)
[2018-11-17] MEDS: PAROXETINE HCL 20 MG TABLET PO SCH (10:22)
[2018-11-17] MEDS: TRIHEXYPHENIDYL HCL 2 MG TABLET PO SCH (10:28)
--- NOTE | 2018-11-17 12:24 | ER Document Report ---
Doctor's Note Notes: 11/17/18 12:24 Rounds: Chart reviewed and patient interviewed. Patient is being evaluated for schizophrenia and being out of her medications. Vital signs of all been normal. Lab studies are normal with the exception of her hemoglobin which is 8.7. It was 9.7 on November 10 and 10.6 on October 01. She is having vaginal bleeding for the past 5 weeks. She has an appointment to see her OB here in town on Saturday. I spoke with Dr. Osvaldo Collins, and he advised Provera and iron and keep her appointment. That is what I did. From a mental health point of view, patient appears to be medically stable for transfer or discharge. Barry Roland MD
[2018-11-17 12:45] VITALS: BP 142/87
== END 2018-11-17 12:45 | disposition home or self-care (01) ==
LOC: ER 18:51
DX: T38.1X2A Poisoning by thyroid hormones and substitutes, intentional self-harm, initial encounter (principal); F20.89 Other schizophrenia; R51 Headache; Y92.9 Unspecified place or not applicable; I10 Essential (primary) hypertension; E11.9 Type 2 diabetes mellitus without complications
CPT/HCPCS: 93005; 99285; 96361; 96374; 36415; 82962; 80307 ×4; 80178; 84703; 85025; 80053; 81001; 93010; A9270 ×18; J3490 ×2; J3486; J7030

== ENCOUNTER 2018-12-13 04:50 | Emergency (ER) | payer MEDICARE, MEDICAID ==
[2018-12-13] MEDS ORDERED: METOCLOPRAMIDE HCL INJ/PF 10 MG/2 ML SDV IV ONE (05:24)
[2018-12-13] MEDS ORDERED: METOCLOPRAMIDE HCL 10 MG TABLET PO ONE (06:00)
[2018-12-13 06:21] LABS: APPEARANCE,URINE CLEAR; BILIRUBIN,URINE NEGATIVE (NEGATIVE); COLOR,URINE YELLOW; GLUCOSE, URINE NEGATIVE (NEGATIVE); KETONES,URINE NEGATIVE (NEGATIVE); LEUKOCYTE ESTERASE,URINE NEGATIVE (NEGATIVE); NITRITE,URINE NEGATIVE (NEGATIVE); PROTEIN,URINE NEGATIVE (NEGATIVE); UROBILINOGEN,URINE NEGATIVE mg/dL (<2.0)
--- NOTE | 2018-12-13 07:26 | ER Document Report ---
ED General - General Chief Complaint: Nausea Stated Complaint: NAUSEA Time Seen by Provider: 12/13/18 05:23 Primary Care Provider: JUAN CARLOS MALAVE MD [Primary Care Provider] - Follow up as needed Notes: Patient is a 48-year-old female presents to the emergency department with chief complaint of generalized nausea. Patient states she was treated outpatient with a blood transfusion yesterday for a hemoglobin of 7. States she has chronic vaginal bleeding. Patient states this evening she felt some generalized nausea. Patient's denying any vomiting or diarrhea. Patient's denying any fevers or dysuria. Patient's denying any abdominal pain at this time. EMS gave the patient 4 mg of sublingual Zofran. Patient states she feels "a little bit better but my stomach is still uneasy." Patient's denying any excessive vaginal bleeding at this time. Past medical history: Diabetes, depression, schizophrenia TRAVEL OUTSIDE OF THE [place] IN LAST 30 DAYS: No - Related Data Allergies/Adverse Reactions: glimepiride Allergy (Mild, Verified 12/13/18 05:49) Past Medical History - General Information source: Patient - Social History Smoking Status: Never Smoker Family History: Reviewed & Not Pertinent Patient has suicidal ideation: No Patient has homicidal ideation: No - Past Medical History Cardiac Medical History: Reports: Hx Hypercholesterolemia, Hx Hypertension Endocrine Medical History: Reports: Hx Diabetes Mellitus Type 2, Hx Hypothyroidism Renal/ Medical History: Denies: Hx Peritoneal Dialysis GI Medical History: Reports: Hx Gastroesophageal Reflux Disease Psychiatric Medical History: Reports: Hx Depression, Hx Schizoaffective Disorder, Hx Schizophrenia Traumatic Medical History: Denies: Hx Gunshot Wound Past Surgical History: Reports: Hx Cholecystectomy Review of Systems - Review of Systems Constitutional: No symptoms reported. denies: Fever EENT: No symptoms reported Cardiovascular: No symptoms reported Respiratory: No symptoms reported Gastrointestinal: See HPI Genitourinary: No symptoms reported Female Genitourinary: No symptoms reported Musculoskeletal: No symptoms reported Skin: No symptoms reported Hematologic/Lymphatic: No symptoms reported Neurological/Psychological: No symptoms reported Physical Exam - Vital signs Vitals: Temp Pulse Resp BP Pulse Ox 99.1 F 77 16 131/75 H 98 12/13/18 05:41 12/13/18 05:41 12/13/18 05:41 12/13/18 05:41 12/13/18 05:41 - Notes Notes: GENERAL: Alert, interacts well. No acute distress. HEAD: Normocephalic, atraumatic. EYES: Pupils equal, round, and reactive to light. Extraocular movements intact. ENT: Oral mucosa moist, tongue midline. NECK: Full range of motion. Supple. Trachea midline. LUNGS: Clear to auscultation bilaterally, no wheezes, rales, or rhonchi. No respiratory distress. HEART: Regular rate and rhythm. No murmur ABDOMEN: Soft, non-tender. Non-distended. Bowel sounds present in all 4 quadrants. EXTREMITIES: Moves all 4 extremities spontaneously. No edema, normal radial and dorsalis pedis pulses bilaterally. No cyanosis. BACK: no cervical, thoracic, lumbar midline tenderness. No saddle anesthesia, normal distal neurovascular exam. NEUROLOGICAL: Alert and oriented x3. Normal speech. cranial nerves II through XII grossly intact PSYCH: Normal affect, normal mood. SKIN: Warm, dry, normal turgor. No rashes or lesions noted. Course - Re-evaluation Re-evalutation: 12/13/18 07:23 Patient initially presents to the emergency department via EMS for generalized nausea. She continues to deny any abdominal pain or vomiting. Patient was given 1 dose of Reglan in the emergency room. Upon reassessment patient in sleeping and easily arousable on verbal stimuli. Patient voices that she feels a lot better and states her friend is currently on her way to pick her up. At this time will discharge with return precautions and follow-up recommendations. Verbal discharge instructions given a the bedside and opportunity for questions given. Medication warnings reviewed. Patient is in agreement with this plan and has verbalized understanding of return precautions and the need for primary care follow-up in the next 24-72 hours. This medical record was dictated with voice recognizing software. There may be grammatical, syntax errors that are unintended. - Vital Signs Vital signs: Temp Pulse Resp BP Pulse Ox 99.1 F 77 16 131/75 H 98 12/13/18 05:41 12/13/18 05:41 12/13/18 05:41 12/13/18 05:41 12/13/18 05:41 - Laboratory Laboratory results interpreted by me: 12/13/18 05:53 Urine Blood LARGE H Discharge - Discharge Clinical Impression: Nausea Condition: Stable Disposition: HOME, SELF-CARE Instructions: Nausea or Vomiting, Nonspecific ([facility]) Additional Instructions: As we discussed you have been seen and treated in the emergency department for your generalized nausea. Please use antinausea medication only as needed. Please follow-up with your primary care provider in the next 24 to 48 hours. Please return to the emergency room for any further concerns. Prescriptions: Ondansetron [Zofran Odt 4 mg Tablet] 1 - 2 tab PO Q6 PRN #6 tab.rapdis PRN Reason: For Nausea/Vomiting Referrals: JUAN CARLOS MALAVE MD [Primary Care Provider] - Follow up as needed
[2018-12-13 07:37] VITALS: BP 138/79
== END 2018-12-13 07:36 | disposition home or self-care (01) ==
LOC: ER 04:50
DX: R11.0 Nausea (principal); N93.9 Abnormal uterine and vaginal bleeding, unspecified; E11.9 Type 2 diabetes mellitus without complications; I10 Essential (primary) hypertension
CPT/HCPCS: 99283; 87086; 81001; A9270